=== PATIENT | female | born 1940 | race Caucasian/White ===

== ENCOUNTER 2017-02-22 09:27 | Outpatient (CLI) | payer MEDICARE, OTHER | END 2017-02-22 09:28 | disposition home or self-care (01) | DX: M79.606 Pain in leg, unspecified (principal); E03.9 Hypothyroidism, unspecified; E78.5 Hyperlipidemia, unspecified; M06.9 Rheumatoid arthritis, unspecified ==

== ENCOUNTER 2017-04-12 10:58 | Outpatient (CLI) | payer MEDICARE, OTHER ==
--- NOTE | 2017-04-13 17:07 | Mammography Report ---
DIGITAL SCREENING MAMMOGRAM: 04/12/2017 CLINICAL INDICATION: A 76-year-old with history of benign left breast biopsy, for screening. COMPARISON: 06/2013, 02/2011, 06/2008, 03/2007. TECHNIQUE: Routine CC and MLO projections were obtained of the breasts. FINDINGS: The breasts again demonstrate scattered fibroglandular densities bilaterally. Coarse and p unctate, typically benign calcifications are present. No suspicious masses, clustered microcalcificat ions, or regions of architectural distortion are identified. IMPRESSION: BENIGN FINDINGS. RECOMMENDATION: ROUTINE ANNUAL SCREENING UNLESS OTHERWISE CLINICALLY INDICATED. BIRADS CATEGORY 2-BENIGN FINDINGS. STANDARD QUALIFYING STATEMENTS 1. This examination was reviewed with the aid of Computer-Aided Detection (CAD). 2. A negative or benign imaging report should not delay biopsy if clinically suspicious findings are present. Consider surgical consultation if warranted. More than 5% of cancers are not identified by i maging. 3. Dense breasts may obscure an underlying neoplasm. JOB #: [id number] EXT JOB #:[id number]
== END 2017-04-12 10:59 | disposition home or self-care (01) ==
LOC: DI 10:58
PROVIDERS: ATTEND Internal Medicine
DX: Z12.31 Encounter for screening mammogram for malignant neoplasm of breast (principal)
CPT/HCPCS: 77067

== ENCOUNTER 2017-08-08 10:22 | Outpatient (CLI) | payer MEDICARE, OTHER | END 2017-08-08 10:23 | disposition home or self-care (01) | LOC: RT 10:22 | PROVIDERS: ATTEND Internal Medicine | DX: I63.50 Cerebral infarction due to unspecified occlusion or stenosis of unspecified cerebral artery (principal); I49.9 Cardiac arrhythmia, unspecified | CPT/HCPCS: 93005 ==

== ENCOUNTER 2017-10-10 08:26 | Outpatient (CLI) | payer MEDICARE, OTHER ==
[2017-10-10 09:31] LABS: CHOL/HDL RATIO 2.4 (<4.4); CHOLESTEROL 152 mg/dL; HDL CHOLESTEROL 63 mg/dL; LDL/HDL RATIO 1.3 (<4.4); TRIGLYCERIDES 51 mg/dL; VLDL CHOLESTEROL 10 mg/dL
[2017-10-10 09:56] LABS: HEMOGLOBIN A1C 0.53 g/dL
== END 2017-10-10 08:27 | disposition home or self-care (01) ==
LOC: LAB 08:26
PROVIDERS: ATTEND Psychiatry & Neurology Neurology
DX: Z86.73 Personal history of transient ischemic attack (TIA), and cerebral infarction without residual deficits (principal); Z79.899 Other long term (current) drug therapy
CPT/HCPCS: 36415; 80061; 83036

== ENCOUNTER 2017-10-12 12:26 | Outpatient (CLI) | payer MEDICARE, OTHER ==
[2017-10-12 13:19] LABS: BASOPHILS % (AUTO) 0.7 %; EOSINOPHILS # (AUTO) 0.1 10^3/uL (0.0-0.7); HCT - HEMATOCRIT 40.2 % (37.0-47.0); HGB - HEMOGLOBIN 13.5 g/dL (12.0-16.0); LYMPHOCYTES # (AUTO) 1.6 10^3/uL (1.5-3.5); LYMPHOCYTES % (AUTO) 27.9 %; MEAN CORPUSCULAR HEMOGLOBIN 31.9 pg (27.0-31.0); MEAN CORPUSCULAR HGB CONC 33.5 g/dL (32.0-36.0); MEAN CORPUSCULAR VOLUME 95.3 fL (81.0-99.0); MONOCYTES # (AUTO) 0.5 10^3/uL (0.0-1.0); MONOCYTES % (AUTO) 9.1 %; NEUTROPHILS # (AUTO) 3.5 10^3/uL (1.5-6.6); NEUTROPHILS % (AUTO) 61.3 %; RED BLOOD COUNT 4.22 10^6/uL (4.20-5.40); RED CELL DISTRIBUTION WIDTH 14.4 % (12.0-15.0); UNCORRECTED WHITE BLOOD COUNT 5.6 x10^3/uL; WHITE BLOOD COUNT 5.6 x10^3/uL (4.8-10.8)
[2017-10-12 13:25] LABS: INR 0.9 (0.8-1.2); PT - PROTHROMBIN TIME 10.7 secs (9.9-12.6)
[2017-10-12 13:44] LABS: ALBUMIN/GLOBULIN RATIO 1.5 (1.0-2.2); BILIRUBIN,TOTAL 0.7 mg/dL (0.2-1.0); CALCIUM 9.2 mg/dL (8.5-10.3); CREATININE 0.8 mg/dL (0.4-1.0); POTASSIUM 4.5 mmol/L (3.5-5.0); TOTAL PROTEIN 6.8 g/dL (6.7-8.2)
== END 2017-10-12 12:27 | disposition home or self-care (01) ==
LOC: LAB 12:26
PROVIDERS: ATTEND Internal Medicine Cardiovascular Disease
DX: Z01.810 Encounter for preprocedural cardiovascular examination (principal); Z79.01 Long term (current) use of anticoagulants
CPT/HCPCS: 36415; 80053; 85025; 85610

== ENCOUNTER 2017-12-14 14:05 | Outpatient (CLI) | payer MEDICARE, OTHER ==
[2017-12-14 14:27] LABS: BILIRUBIN,URINE NEGATIVE (NEGATIVE); GLUCOSE, URINE (UA) NEGATIVE (NEGATIVE); KETONES,URINE (UA) NEGATIVE (NEGATIVE); LEUKOCYTE ESTERASE, URINE MODERATE (NEGATIVE); NITRITE,URINE NEGATIVE (NEGATIVE); OCCULT BLOOD,URINE TRACE-INTA (NEGATIVE); PH,URINE 6.5 PH (5.0-7.5); PROTEIN,URINE NEGATIVE (NEGATIVE); UROBILINOGEN,URINE 0.2 (NORMAL) E.U./dL (NORMAL)
[2017-12-14 14:31] LABS: CLARITY,URINE HAZY (CLEAR)
[2017-12-14 14:35] LABS: BACTERIA,URINE Moderate /HPF (None Seen); SQUAMOUS EPITHELIAL CELL,UR NONE SEEN (<= Few)
== END 2017-12-14 14:06 | disposition home or self-care (01) ==
LOC: LAB 14:05
PROVIDERS: ATTEND Orthopaedic Surgery
DX: Z01.818 Encounter for other preprocedural examination (principal); N39.0 Urinary tract infection, site not specified; R73.09 Other abnormal glucose
CPT/HCPCS: 81001; 81003; 87086

== ENCOUNTER 2017-12-25 11:30 | Inpatient (IN) | payer MEDICARE, OTHER ==
[2017-12-25] MEDS ORDERED: LORazepam 2 MG/ML VIAL IVP STA (13:21)
[2017-12-25] MEDS ORDERED: METHYLNALTREXONE 12 MG/0.6 ML VIAL SUBQ ONE (13:21)
[2017-12-25 13:23] LABS: BASOPHILS % (AUTO) 4.4 %; EOSINOPHILS % (AUTO) 1.2 %; HGB - HEMOGLOBIN 13.8 g/dL (12.0-16.0); LYMPHOCYTES % (AUTO) 5.8 %; MEAN CORPUSCULAR HEMOGLOBIN 31.7 pg (27.0-31.0); MEAN CORPUSCULAR HGB CONC 34.8 g/dL (32.0-36.0); MEAN CORPUSCULAR VOLUME 91.2 fL (81.0-99.0); MEAN PLATELET VOLUME 7.9 fL (7.9-10.8); MONOCYTES % (AUTO) 2.9 %; NEUTROPHILS % (AUTO) 85.7 %; PLT - PLATELET COUNT 168 10^3/uL (130-450); RED BLOOD COUNT 4.36 10^6/uL (4.20-5.40); RED CELL DISTRIBUTION WIDTH 13.3 % (12.0-15.0); WHITE BLOOD COUNT 8.7 x10^3/uL (4.8-10.8)
--- NOTE | 2017-12-25 13:24 | ED Physician Documentation ---
PD HPI ABD PAIN - Stated complaint Stated Complaint: ABD PX N/V CONSTIPATION - Chief complaint Chief Complaint: Abd Pain - History obtained from History obtained from: Patient - History of Present Illness Timing - onset: Other (She is on opioids for left hip pain pending a replacement in a little over a week. She really has not had a good BM in 4 days except for a small one last night and feels like she is going to explode with nausea. She has had some rectal bleeding as well.) Review of Systems Ten Systems: 10 systems reviewed and negative Constitutional: denies: Fever, Chills Cardiac: denies: Chest pain / pressure, Palpitations Respiratory: denies: Dyspnea, Cough GI: reports: Abdominal Pain, Nausea, Constipation, Bloody / black stool. denies : Vomiting, Diarrhea PD PAST MEDICAL HISTORY - Past Medical History Cardiovascular: High cholesterol Respiratory: None Neuro: CVA Endocrine/Autoimmune: HyPOthyroidism : None HEENT: Other Musculoskeletal: Osteoarthritis, Chronic back pain Derm: Other - Past Surgical History Past Surgical History: Yes Ortho: Other HEENT: Tonsil/Adenoidectomy Derm: Skin cancer surgery - Present Medications Home Medications: Ambulatory Orders Medication Instructions Recorded Confirmed Clopidogrel [Plavix] 75 mg PO DAILY 04/06/14 12/25/17 Levothyroxine Sodium [Synthroid] 125 mcg PO DAILY 04/06/14 12/25/17 Celecoxib [Celebrex] 200 mg PO DAILY 06/08/16 12/25/17 Amox/Clav 875/125 [Augmentin] 1 each PO Q12H 12/25/17 12/25/17 Bisacodyl [Dulcolax] 10 mg PO DAILY 12/25/17 12/25/17 Hydrocodone/Acetaminophen 1 each PO .FREQ PRN 12/25/17 12/25/17 [Hydrocodone-Acetamin 10-300 mg] Senna [Senokot] 8.6 mg PO ONCE 12/25/17 12/25/17 - Allergies Allergies/Adverse Reactions: Allergies Allergy/AdvReac Type Severity Reaction Status Date / Time meloxicam Allergy Intermediate Hives Verified 12/25/17 11:42 Penicillins Allergy Intermediate Hives Verified 12/25/17 11:42 Sulfa (Sulfonamide Allergy Intermediate Hives Verified 12/25/17 11:42 Antibiotics) - Living Situation Living Situation: reports: With family - Social History Does the pt smoke?: No Smoking Status: Never smoker Does the pt drink ETOH?: Yes Does the pt have substance abuse?: No - Family History Family history: reports: Non contributory - Immunizations Immunizations are current?: No Immunizations: TDAP current <10years - POLST Patient has POLST: No POLST Status: Full Code PD ED PE NORMAL - Vitals Vital signs reviewed: Yes - General General: Alert and oriented X 3, Other (Retching and in pain) - HEENT HEENT: PERRL, EOMI - Neck Neck: Supple, no meningeal sign, No bony TTP - Cardiac Cardiac: RRR, No murmur - Respiratory Respiratory: No respiratory distress, Clear bilaterally - Abdomen Abdomen: Other (Slightly distended but soft with mild diffuse tenderness) - Rectal Rectal: Other (With Chel Byrd RN, present and chaperoning. Maroon liquidy stool, very guaiac positive, no impaction in the vault.) - Back Back: No CVA TTP, No spinal TTP - Derm Derm: Normal color, Warm and dry - Extremities Extremities: No deformity, No tenderness to palpate - Neuro Neuro: Alert and oriented X 3, Normal speech - Psych Psych: Normal mood, Normal affect Results - Vitals Vitals: Vital Signs - 24 hr 12/25/17 12/25/17 12/25/17 11:38 14:37 14:42 Temperature 36.2 C L Heart Rate 67 71 69 Respiratory 16 14 14 Rate Blood Pressure 148/75 H 118/65 O2 Saturation 99 88 L 93 12/25/17 15:24 Temperature Heart Rate 80 Respiratory 16 Rate Blood Pressure 118/65 O2 Saturation 98 Oxygen O2 Source Nasal cannula Oxygen Flow Rate 3 - Labs Labs: Laboratory Tests 12/25/17 12/25/17 13:10 13:10 WBC 8.7 RBC 4.36 Hgb 13.8 Hct 39.8 MCV 91.2 MCH 31.7 H MCHC 34.8 RDW 13.3 Plt Count 168 MPV 7.9 Neut # Not Reportable Lymph # Not Reportable Murray # Not Reportable Eos # Not Reportable Baso # Not Reportable Absolute Nucleated RBC Not Reportable Total Counted 100 Band Neuts % (Manual) 2 Abnorm Lymph % (Manual) 0 Nucleated RBC % Not Reportable Neutrophils # (Manual) 7.6 H Lymphocytes # (Manual) 0.6 L Monocytes # (Manual) 0.4 Eosinophils # (Manual) 0.1 Basophils # (Manual) 0.0 Differential Comment MANUAL DIFFERENTIAL Manual Slide Review Indicated Platelet Estimate NORMAL (130-450,000) Platelet Morphology NORMAL APPEARANCE RBC Morph Micro Appear NORMAL APPEARANCE Sodium 128 L Potassium 3.8 Chloride 93 L Carbon Dioxide 28 Anion Gap 7.0 BUN 17 Creatinine 0.6 Estimated GFR (MDRD) 97 Glucose 98 Calcium 8.8 Total Bilirubin 0.7 AST 30 ALT 23 Alkaline Phosphatase 58 Total Protein 6.5 L Albumin 4.1 Globulin 2.4 Albumin/Globulin Ratio 1.7 Lipase 14 L - Rads (name of study) CT A/P Radiology: EMP read contemporaneously (Pneumoperitoneum, likely diverticulitis as a source, small free fluid, increased stool, liver lesions.) PD MEDICAL DECISION MAKING - ED course ED course: 77yo 77-year-old woman presents with severe abdominal pain and complaint of constipation impaction, although she is moderately tender on examination and no impaction is found and she does have guaiac positive stools suggesting against a simple diagnosis of constipation/impaction and therefore CT was done showing perforation and Dr. Oropeza, the on-call surgeon was consulted at 3:50 PM and will take the patient to the operating room. Departure - Departure Disposition: ED Transfer to [facility] Clinical Impression: Pneumoperitoneum Condition: Serious
[2017-12-25 13:36] LABS: ALBUMIN 4.1 g/dL (3.2-5.5); ALBUMIN/GLOBULIN RATIO 1.7 (1.0-2.2); BILIRUBIN,TOTAL 0.7 mg/dL (0.2-1.0); CALCIUM 8.8 mg/dL (8.5-10.3); CREATININE 0.6 mg/dL (0.4-1.0); TOTAL PROTEIN 6.5 g/dL (6.7-8.2)
[2017-12-25 13:47] LABS: ABNORMAL LYMPHS % (MANUAL) 0 %
[2017-12-25 13:48] LABS: BAND NEUTROPHILS % (MANUAL) 2 %; DIFFERENTIAL COMMENT MANUAL DIFFERENTIAL; EOSINOPHILS # (MANUAL) 0.1 10^3/uL (0-0.7); LYMPHOCYTES # (MANUAL) 0.6 10^3/uL (1.5-3.5); LYMPHOCYTES % (MANUAL) 7 %; MONOCYTES # (MANUAL) 0.4 10^3/uL (0.0-1.0); NEUTROPHILS # (MANUAL) 7.6 10^3/uL (1.5-6.6); NEUTROPHILS % (MANUAL) 85 %; PLATELET ESTIMATE, MANUAL NORMAL (130-450,000) (NORMAL); PLATELET MORPHOLOGY NORMAL APPEARANCE (NORMAL); RBC MORPHOLOGY (MULTIPLE) NORMAL APPEARANCE (NORMAL)
[2017-12-25] MEDS ORDERED: IOPAMIDOL-300 100 ML VIAL ONE (13:59)
[2017-12-25] MEDS ORDERED: HYDROmorphone 1 MG/ML SYRINGE IVP STA ×3 (14:30→17:33)
[2017-12-25] MEDS ORDERED: ONDANSETRON 4 MG/2 ML VIAL IVP STA ×3 (14:30→16:29)
[2017-12-25] MEDS ORDERED: IOPAMIDOL-300 100 ML VIAL IVP ONE (15:08)
--- NOTE | 2017-12-25 15:36 | CT Report ---
EXAM: CT ABDOMEN AND PELVIS EXAM DATE: 12/25/2017 03:02 PM. CLINICAL HISTORY: IV only, low abd pain, melena. COMPARISONS: None. TECHNIQUE: Routine helical CT imaging was performed through the abdomen and pelvis. IV contrast: 100 ML ISOVUE 300. Enteric contrast: No. Reconstructions: Coronal and sagittal. In accordance with CT protocol optimization, one or more of the following dose reduction techniques w ere utilized for this exam: automated exposure control, adjustment of mA and/or KV based on patient s ize, or use of iterative reconstructive technique. FINDINGS: Lung Bases: There is bibasilar dependent atelectasis. Liver: There are multiple low-density liver lesions which are too small to characterize. Segment 8 le arnel image 15 measures 0.9 cm. Segment 2 lesion image 17 measures 0.9 cm. Segment 5 lesion image 29 m easures 1.3 cm. Liver vessels are patent. Gallbladder/Bile Ducts: Unremarkable. Spleen: Normal. Pancreas: Normal. Adrenal Glands: Normal. Kidneys: Normal. No masses or hydronephrosis. Peritoneal Cavity/Bowel: There is a small amount of pneumoperitoneum within the anterior upper abdome n. There is increased stool within the colon. There is a small amount of pneumoperitoneum in the lowe r abdomen around the rectosigmoid junction. There is a small volume of free fluid in the low pelvis. There are mild to moderate number of diverticula. The small bowel is normal in caliber. No organized drainable abscess or peripherally enhancing fluid collection. There is generalized increased density of mesenteric fat in the lower abdomen. Pelvic Organs: Uterus is anteverted. Urinary bladder appears unremarkable. Vasculature: No abdominal aortic aneurysm. Bones: There is advanced left hip degenerative disease. Bone density of the sacrum and lumbar spine a ppears heterogeneous. Other: None. IMPRESSION: 1. Pneumoperitoneum consistent with perforated viscus. Most likely representing perforated diverticul itis of the sigmoid colon or rectum. 2. Small free fluid in the pelvis without an organized abscess. 3. Increased colonic stool. 4. 3 indeterminant density liver lesions of uncertain etiology and clinical significance. Differentia l diagnosis would include hemangiomas, cysts, liver metastases. RADIA The above findings were discussed with Pending As Of Now by Dr. Jon Ruffin at 15:35 hrs o n 12/25/17. Referring Provider Line: [phone] SITE ID: [id number]
[2017-12-25] MEDS ORDERED: cefTRIAXone 1 GM in SODIUM CHLORIDE 0.9% MINIBAG 100 ML IV STA (15:55)
[2017-12-25] MEDS ORDERED: metroNIDAZOLE 500 MG/100 ML 500 MG/100 ML BAG IV ONE (15:56)
[2017-12-25] MEDS ORDERED: metroNIDAZOLE 500 MG/100 ML 500 MG/100 ML BAG ONE (16:30)
--- NOTE | 2017-12-25 17:40 | CONSULTATION NOTE ---
Referring Provider Name of Referring Provider:: Buck Contrerasra Consult Date: 12/25/17 Chief Complaint - Chief Complaint Chief Complaint: Free air with a history of profound constipation/diverticulosis History of Present Illness - Admitted From Admitted From:: ED - History Obtained From Records Reviewed: Yes History obtained from: Patient and family Exam Limitations: Pain in left hip and need to urinate - History of Present Illness HPI Comment/Other: Dr. 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 She has had a long-standing history of constipation and this was simply worsened by the taking of opiates for her left hip pain. Her last bowel movement was 4 days ago with only a small semblance of a bowel movement last night accompanied by quite a bit of blood. With this attempt she started having abdominal pain which was generalized but lower abdominal in nature. It was unremitting and associated with profound nausea and this prompted her to come to our emergency department. There is been no vomiting. She she has diverticulosis and states that her family has had diverticulosis. Dr. Saavedra obtain a CAT scan to workup her abdominal pain and this showed free air. Importantly, the patient had been placed on antibiotics about 3 days ago for urinary tract infection. History - Past Medical History Cardiovascular: reports: High cholesterol Respiratory: reports: None Neuro: reports: CVA Endocrine/Autoimmune: reports: HyPOthyroidism : reports: None HEENT: reports: Other Musculoskeletal: reports: Osteoarthritis, Chronic back pain Derm: reports: Other MRSA Hx?: No - Past Surgical History Ortho: reports: Other HEENT: reports: Tonsil/Adenoidectomy Derm: reports: Skin cancer surgery - Family & Social History Living Situation: With family - POLST Patient has POLST: No POLST Status: Full Code Meds/Allgy - Home Medications Home Medications: Ambulatory Orders Medication Instructions Recorded Confirmed Clopidogrel [Plavix] 75 mg PO DAILY 04/06/14 12/25/17 Levothyroxine Sodium [Synthroid] 125 mcg PO DAILY 04/06/14 12/25/17 Celecoxib [Celebrex] 200 mg PO DAILY 06/08/16 12/25/17 Amox/Clav 875/125 [Augmentin] 1 each PO Q12H 12/25/17 12/25/17 Bisacodyl [Dulcolax] 10 mg PO DAILY 12/25/17 12/25/17 Hydrocodone/Acetaminophen 1 each PO .FREQ PRN 12/25/17 12/25/17 [Hydrocodone-Acetamin 10-300 mg] Senna [Senokot] 8.6 mg PO ONCE 12/25/17 12/25/17 - Allergies Allergies/Adverse Reactions: Allergies Allergy/AdvReac Type Severity Reaction Status Date / Time meloxicam Allergy Intermediate Hives Verified 12/25/17 11:42 Penicillins Allergy Intermediate Hives Verified 12/25/17 11:42 Sulfa (Sulfonamide Allergy Intermediate Hives Verified 12/25/17 11:42 Antibiotics) Review of Systems - Cardiovascular Cariovascular: denies: Irregular heart rate, Palpitations, Chest pain - Respiratory Respiratory: denies: Cough, Sputum production, Hemoptysis - Gastrointestinal Gastrointestinal: reports: Abdominal pain, Constipation, Rectal bleeding, Nausea. denies: Vomiting - Genitourinary Genitourinary: reports: Dysuria, Urgency - Musculoskeletal Musculoskeletal: reports: Joint pain (Left hip pain, profound.) - Neurological Neurological: denies: General weakness, Focal weakness - Psychiatric Psychiatric: denies: Depression, Anxiety - Hematologic/Lymphatic Hematologic/Lymphatic: reports: Bleeding tendencies (On Plavix.) Exam - Vital Signs Reviewed Vital Signs: Yes Vital Signs: Vital Signs x48h Temp Pulse Resp BP Pulse Ox 12/25/17 15:24 80 16 118/65 98 12/25/17 14:42 69 14 93 12/25/17 14:37 71 14 118/65 88 L 12/25/17 11:38 36.2 C L 67 16 148/75 H 99 - Physical Exam General Appearance: positive: Moderate distress, Severe distress Eyes Bilateral: positive: No lid inflammation, Conjunctivae nml, No scleral icterus Neck: positive: Trachea midline Respiratory: positive: Chest non-tender, No respiratory distress, Breath sounds nml Cardiovascular: positive: Regular rate & rhythm Abdomen: positive: Tenderness (Peritoneal findings especially in the lower abdomen. Extreme pain on palpation.), Abnml bowel sounds (Markedly decreased bowel sounds.) Rectal: positive: Other (Not repeated, Dr. Saavedra's examination was grossly positive.) Skin: positive: Color nml Extremities: positive: Non-tender, Nml appearance Neurologic/Psychiatric: positive: Oriented x3 Conclusion/Plan - Diagnosis Diagnosis: Free air due to perforated viscus, likely diverticular - Plan Plan: Urgent operation. Exploratory laparotomy. Likely partial colectomy (sigmoid) with end colostomy and Lovett's procedure. The indications, procedure, alternatives, and possible complications including bleeding (requiring transfusion with all of its risks), infection (approximately 33% of all types), and were fully explained to the patient and her as well as the family and all questions answered. Verbal and written consent obtained. Teds and Venodyne's will be placed for prophylaxis against deep venous thrombosis. The patient is already on Plavix. The patient will receive preoperative antibiotics for prophylaxis and surgical infection. The patient will be in the hospital for definitely more than 96 hours due to this likely diagnosis and the operation required. [employer] disclaimer: This document was created in part using voice recognition technology. Because of the inherent limitations of the system ([employer]'s [employer] Dictate user manual states that the licensee understands that speech recognition is a statistical process and that recognition errors are inherent in the process), occasional same sounding word substitutions and grammatical errors do occur and persist despite proofreading. Please read this document for context. - Lab Results Lab results reviewed: Yes Abdullahi Bones: 12/25/17 13:10 12/25/17 13:10 - Diagnostic Imaging Results Diagnostic Imaging Results: positive: Prelim report reviewed, Final report reviewed, Discussed with radiologist, Read independently
[2017-12-25] MEDS ORDERED: NEOSTIGMINE 1 MG/1 ML 10 ML MDV IVP ONE (20:00)
[2017-12-25] MEDS ORDERED: ROCURONIUM 50 MG/5 ML VIAL IVP ONE (20:00)
[2017-12-25] MEDS ORDERED: fentaNYL 100 MCG/2 ML VIAL IVP ONE (20:00)
[2017-12-25] MEDS ORDERED: LIDOCAINE-MPF 2% 5 ML VIAL IM ONE (20:00)
[2017-12-25] MEDS ORDERED: SUCCINYLCHOLINE 200 MG/10 ML VIAL IVP ONE (20:00)
[2017-12-25] MEDS ORDERED: ACETAMINOPHEN 1,000 MG/100 ML 100 ML IV ONE (20:00)
[2017-12-25] MEDS ORDERED: PROPOFOL 200 MG/20 ML VIAL IVP ONE (20:00)
[2017-12-25] MEDS ORDERED: GLYCOPYRROLATE 1 MG/5 ML VIAL IVP ONE (20:00)
[2017-12-25] MEDS ORDERED: LACTATED RINGERS 1,000 ML IV ONE (20:09)
[2017-12-25] MEDS ORDERED: SODIUM CHLORIDE 0.9% 1,000 ML IV ONE ×3 (20:59→22:15)
[2017-12-25] MEDS ORDERED: MORPHINE PCA 50 MG IV PRN (22:05)
[2017-12-25] MEDS: HYDROmorphone 1 MG/ML SYRINGE ONE ×2 (22:09→22:20)
--- NOTE | 2017-12-25 22:11 | OPERATIVE REPORT ---
Operative Report - General Procedure Date: 12/25/17 Planned Procedure: Exploratory laparotomy, possible colectomy/colostomy Pre-Op Diagnosis: Perforated viscus resulting in free air Procedure Performed: Sigmoidectomy with end colostomy and Lovett's Abdominal washout and placement of a 19 Spanish Popeye drain Post Op Diagnosis: Stercoral perforation of the sigmoid colon - Procedure Note Primary Surgeon: Rudy Oropeza MD Anesthesia Provider: Deja Godinez CRNA Anesthesia Technique: General ET tube IV Fluids (mL): 1,800 Estimated Blood Loss (mL): 300 Urine Output (mL): 300 Drain/Tube Type: Popeye drain (19 Spanish placed in the right lower quadrant and directed down into the pelvis) Complications: None. - Other Other Information/Narrative: OPERATIVE DESCRIPTION/REPORT: After verbal and written informed consent was obtained detailing the risks of infection, bleeding requiring transfusion with its risks, nerve injury, and , and after I met with the patient confirming the surgery and the site of the surgery, the patient was brought to the operative suite and placed supine on the operating table. Great care was taken to avoid pressure points to prevent pressure necrosis or nerve injury. Monitoring devices were applied along with TEDs and pneumatic compressive stockings (to prevent DVT). The patient received preoperative antibiotics for surgical prophylaxis. Deja Godinez CRNA sedated and anethetized the patient for the entire procedure. The patient was prepped and draped in the usual sterile manner. With the patient draped my initials were clearly visible. A "time in" then confirmed that the paitient was identified with 3 identifiers (name, birthdate and medical record number), the history and physical was in the chart, the signed consent confirming the procedure was in the chart, the patient was in the correct position, the aforementioned prophylactic measures were in place or given, we had the correct personel and equipment to complete the procedure and that anesthesia, surgery and nursing were given an opportunuty to express any concerns. With the agreement of everyone in the room, we proceeded with the operation. A midline incision was made infraumbilically and taken down to the fascia. The incision extended from 3 cm below the umbilicus to 3 cm above above the pubic tubercle. Once this was taken down to the fascia, the fascia and peritoneum were opened without incident or difficulty. The sigmoid colon was markedly redundant. The sigmoid colon was examined a 5 cm in diameter hole was identified within the sigmoid in the pelvis. The entire colon was filled with unbelievably hard stool. One large turd was plugging the hole with two turds having fallen out of the colon and resting deep in the pelvis. The mid-sigmoid colon was selected as the proximal point of resection and a TRIPP stapler was used to transect the colon at this point. The mesentery was then taken sequentially using a Ligasure device. The dissection continued down to just above the peritoneal reflection. The posterior dissection was done using Ligasure whereas the peritoneal attachments both anteriorly and laterally were taken using Bovie electrocautery. An Ethi[employer] Contour stapler was obtained and placed across the distal sigmoid colon and fired. The specimen was delivered from the operative field. The abdomen was copiously irrigated with warm saline. The proximal sigmoid colon and descending colon were freed from the lateral sidewall via dissection along the white line of Toldt with Bovie electrocautery. Again the colon itself is markedly redundant and filled with extraordinarily hard stool. A colostomy site was chosen mcfp between the incision and the anterior iliac spine and a circular incision was made in the skin using a scalpel. The subcutaneous tissues were dissected off the anterior fascia using Bovie electrocautery. The anterior fascia was opened in a cruciate manner and the posterior fascia was opened in a linear fashion again using Bovie electrocautery using my hand to protect the bowel underneath. This opening was then dilated to admit 2 fingers easily. The colon was grasped with a Vaughn through this opening and brought up through the opening. Please note that the stool was so hard and so large that it was difficult to bring the stool up through the fascial opening. A 19 Spanish Popeye drain was obtained and inserted into the right lower quadrant using a separate stab incision. This is a cured to the skin using a 3-0 nylon which was Julián sandaled about the drain. The drain was then placed into the pelvis where the turds had been lying and along the left pelvic sidewall. The fascia was closed using a 0 looped PDS in a running fashion. The fascial closure was started superiorly and run inferiorly. The subcutaneous tissues were copiously irrigated using warm sterile saline and meticulous hemostasis was obtained using Bovie electrocautery. The skin was approximated in 5 spots using 3-0 Nylon mattress sutures . The ostomy was then matured after excising the staple line using the LigaSure. 3-0 Vicryl sutures were used to mature the ostomy. The midline wound was then packed using quarter inch Iodofor gauze. An ostomy appliance was placed over the colostomy. At this point a time out was performed that confirmed that all the counts were correct, the procedure that was performed, the blood loss, the IV fluids administered, and the patients condition. Having tolerated the procedure well , the patient was subsequently taken to recovery room in good and stable condition. I then spoke with the patient's regarding the operation and the findings. [employer] disclaimer: This document was created in part using voice recognition technology. Because of the inherent limitations of the system ([email or web address]'s [employer] Dictate user manual states that the licensee understands that speech recognition is a statistical process and that recognition errors are inherent in the process), occasional same sounding word substitutions and grammatical errors do occur and persist despite proofreading. Please read this document for context.
[2017-12-25] MEDS ORDERED: ONDANSETRON 4 MG/2 ML VIAL ONE (22:22)
[2017-12-25] MEDS ORDERED: CEFEPIME 1 GM in SODIUM CHLORIDE 0.9% MINIBAG 100 ML IV SCH (23:00)
[2017-12-25] MEDS: ACETAMINOPHEN 1,000 MG/100 ML 100 ML IV SCH (23:45)
[2017-12-25] MEDS: SODIUM CHLORIDE FLUSH 0.9% 10 ML SYRINGE IVP SCH (23:58)
[2017-12-26] MEDS: D5NS W/20 MEQ KCL 1,000 ML IV SCH ×3 (00:11→22:03)
[2017-12-26] MEDS ORDERED: MORPHINE 10 MG/ML VIAL IVP PRN (00:22)
[2017-12-26 00:30] LABS: BILIRUBIN,URINE NEGATIVE (NEGATIVE); GLUCOSE, URINE (UA) NEGATIVE (NEGATIVE); KETONES,URINE (UA) >=80 mg/dL (NEGATIVE); LEUKOCYTE ESTERASE, URINE NEGATIVE (NEGATIVE); NITRITE,URINE NEGATIVE (NEGATIVE); OCCULT BLOOD,URINE SMALL (NEGATIVE); PH,URINE 5.5 PH (5.0-7.5); PROTEIN,URINE NEGATIVE (NEGATIVE); UROBILINOGEN,URINE 0.2 (NORMAL) E.U./dL (NORMAL)
[2017-12-26] MEDS ORDERED: CEFEPIME 1 GM in SODIUM CHLORIDE 0.9% MINIBAG 100 ML IV SCH (00:30)
[2017-12-26 00:32] LABS: CLARITY,URINE CLEAR (CLEAR)
[2017-12-26 00:35] LABS: BACTERIA,URINE Rare /HPF (None Seen); SQUAMOUS EPITHELIAL CELL,UR RARE Squamous (<= Few)
[2017-12-26] MEDS ORDERED: metroNIDAZOLE 500 MG/100 ML 250 MG/50 ML BAG IV SCH (01:00)
[2017-12-26] MEDS: MORPHINE 2 MG/ML CARPUJECT ONE ×2 (01:42→08:29)
[2017-12-26] MEDS ORDERED: MORPHINE 2 MG/ML CARPUJECT ONE ×3 (03:54→08:31)
[2017-12-26 05:05] LABS: BASOPHILS % (AUTO) 0.3 %; HGB - HEMOGLOBIN 12.4 g/dL (12.0-16.0); LYMPHOCYTES # (AUTO) 0.3 10^3/uL (1.5-3.5); LYMPHOCYTES % (AUTO) 5.3 %; MEAN CORPUSCULAR HEMOGLOBIN 32.1 pg (27.0-31.0); MEAN CORPUSCULAR HGB CONC 31.9 g/dL (32.0-36.0); MEAN CORPUSCULAR VOLUME 100.6 fL (81.0-99.0); MEAN PLATELET VOLUME 8.7 fL (7.9-10.8); MONOCYTES # (AUTO) 0.4 10^3/uL (0.0-1.0); MONOCYTES % (AUTO) 6.3 %; NEUTROPHILS # (AUTO) 5.6 10^3/uL (1.5-6.6); NEUTROPHILS % (AUTO) 88.1 %; PLT - PLATELET COUNT 142 10^3/uL (130-450); RED BLOOD COUNT 3.87 10^6/uL (4.20-5.40); RED CELL DISTRIBUTION WIDTH 13.8 % (12.0-15.0); WHITE BLOOD COUNT 6.3 x10^3/uL (4.8-10.8)
[2017-12-26 05:21] LABS: ALBUMIN 2.8 g/dL (3.2-5.5); ALBUMIN/GLOBULIN RATIO 1.3 (1.0-2.2); BILIRUBIN,TOTAL 0.9 mg/dL (0.2-1.0); CALCIUM 7.5 mg/dL (8.5-10.3); CREATININE 0.5 mg/dL (0.4-1.0); TOTAL PROTEIN 4.9 g/dL (6.7-8.2)
[2017-12-26] MEDS: ACETAMINOPHEN 1,000 MG/100 ML 100 ML IV SCH ×4 (05:26→22:26)
[2017-12-26] MEDS: SODIUM CHLORIDE FLUSH 0.9% 10 ML SYRINGE IVP SCH ×5 (05:30→22:23)
[2017-12-26] MEDS: LEVOTHYROXINE 125 MCG TABLET PO SCH (06:58)
--- NOTE | 2017-12-26 07:52 | PROVIDER PROGRESS NOTE ---
Subjective - General Admit Date: 12/25/17 Procedure Date: 12/25/17 Post Op Days: 1 Procedure Performed: Sigmoidectomy, end colostomy, Hartmans, abdominal washout, 19 Fr drain - Review of Systems Wound/Incisions: positive: Dressing dry and intact (Already changed once today.) Drain Type: 19 Fr Popeye Drain Output Description: Serosanguinous Approximate mls Output: 95 General: positive: Other (Hip pain.) HEENT: positive: No symptoms, Other (Dry mouth.) Pulmonary: positive: No symptoms Cardiovascular: positive: No symptoms Gastrointestinal: positive: Nausea (Occasional.) Genitourinary: positive: Urgency (Yousif in place.) Musculoskeletal: positive: Other (Hip pain.) Psychiatric: positive: No symptoms Objective - Patient Data Reviewed Vital Signs: Yes Vital Signs: Vital Signs x48h Temp Pulse Resp BP Pulse Ox 12/26/17 06:00 37.0 C 67 14 88/46 L 94 12/26/17 03:54 37.0 C 69 16 106/52 L 98 12/26/17 02:01 36.8 C 70 16 96/46 L 97 12/26/17 00:59 36.7 C 73 18 96/53 L 97 12/26/17 00:10 36.7 C 72 18 106/48 L 98 Weight: Weight 12/24/17 12/25/17 12/26/17 23:59 23:59 23:59 Weight (kg) 67 kg Intake & Output: Intake and Output Totals x24h 12/24/17 12/25/17 12/26/17 23:59 23:59 23:59 Intake Total 931.667 Output Total 595 Balance 336.667 - Lab Results Lab Results: 12/26/17 04:18 12/26/17 04:18 Other Lab Results: Lab Results x24hrs 12/26/17 12/26/17 12/26/17 Range/Units 04:18 04:18 00:05 WBC 6.3 (4.8-10.8) x10^3/uL RBC 3.87 L (4.20-5.40) 10^6/uL Hgb 12.4 (12.0-16.0) g/dL Hct 38.9 (37.0-47.0) % MCV 100.6 H (81.0-99.0) fL MCH 32.1 H (27.0-31.0) pg MCHC 31.9 L (32.0-36.0) g/dL RDW 13.8 (12.0-15.0) % Plt Count 142 (130-450) 10^3/uL MPV 8.7 (7.9-10.8) fL Neut # 5.6 (1.5-6.6) 10^3/uL Lymph # 0.3 L (1.5-3.5) 10^3/uL [place] # 0.4 (0.0-1.0) 10^3/uL Eos # 0.0 (0.0-0.7) 10^3/uL Baso # 0.0 (0.0-0.1) 10^3/uL Absolute Nucleated RBC 0.00 x10^3/uL Nucleated RBC % 0.0 /100WBC Sodium 132 L (135-145) mmol/L Potassium 3.9 (3.5-5.0) mmol/L Chloride 102 (101-111) mmol/L Carbon Dioxide 22 (21-32) mmol/L Anion Gap 8.0 (6-13) BUN 12 (6-20) mg/dL Creatinine 0.5 (0.4-1.0) mg/dL Estimated GFR (MDRD) 120 (>89) Glucose 135 H (70-100) mg/dL Calcium 7.5 L (8.5-10.3) mg/dL Total Bilirubin 0.9 (0.2-1.0) mg/dL AST 24 (10-42) IU/L ALT 19 (10-60) IU/L Alkaline Phosphatase 39 L (42-121) IU/L Total Protein 4.9 L (6.7-8.2) g/dL Albumin 2.8 L (3.2-5.5) g/dL Globulin 2.1 (2.1-4.2) g/dL Albumin/Globulin Ratio 1.3 (1.0-2.2) Urine Color YELLOW Urine Clarity CLEAR (CLEAR) Urine pH 5.5 (5.0-7.5) PH Ur Specific Start 1.025 (1.002-1.030) Urine Protein NEGATIVE (NEGATIVE) mg/dL Urine Glucose (UA) NEGATIVE (NEGATIVE) mg/dL Urine Ketones >=80 H (NEGATIVE) mg/dL Urine Occult Blood SMALL H (NEGATIVE) Urine Nitrite NEGATIVE (NEGATIVE) Urine Bilirubin NEGATIVE (NEGATIVE) Urine Urobilinogen 0.2 (NORMAL) (NORMAL) E.U./dL Ur Leukocyte Esterase NEGATIVE (NEGATIVE) Urine RBC 6-10 H (0-5) /HPF Urine WBC 4-5 (0-5) /HPF Ur Squamous Epith Cells RARE Squamous (<= Few) Urine Bacteria Rare (None Seen) /HPF Ur Microscopic Review INDICATED Urine Culture Comments NOT INDICATED - Current Medications Current Medications: Current Medications Generic Name Dose Route Start Last Admin Trade Name Freq PRN Reason Stop Dose Admin Potassium Chloride/Dextrose/Sod Cl 1,000 mls @ 100 mls/hr 12/25/17 22:00 06:00 IV 100 mls/hr .Q10H ELIZA Infusion Acetaminophen 100 mls @ 400 mls/hr 12/25/17 23:00 12/26/17 05:41 Ofirmev IV 12/29/17 23:59 Infused Q6H ELIZA Infusion Levothyroxine Sodium 125 mcg 12/26/17 07:00 12/26/17 06:58 Synthroid PO 125 mcg QDAC ELIZA Administration Morphine Sulfate 2 mg 12/26/17 00:22 12/26/17 00:41 Morphine IVP 12/28/17 23:59 2 mg Q30M PRN Administration Abdominal Pain Sodium Chloride 10 ml 12/25/17 22:00 12/26/17 05:30 Normal Saline Flush 0.9% IVP 10 ml Q8HR ELIZA Administration - Physical Exam Wound/Incisions: positive: Dressing dry and intact General Appearance: positive: No acute distress Eyes Bilateral: positive: No lid inflammation, Conjunctivae nml, No scleral icterus ENT: positive: Dry mucous membranes Neck: positive: Trachea midline Respiratory: positive: Chest non-tender, No respiratory distress, Breath sounds nml Cardiovascular: positive: Regular rate & rhythm Abdomen: positive: Other (Quiet. Incisional tenderness. Drain in place in RLQ. ) Skin: positive: Pallor (Slight.) Extremities: positive: Non-tender, Full ROM, Nml appearance Neurologic/Psychiatric: positive: Oriented x3 Impression/Plan - Problem List Problem List: D1 s/p sigmoidectomy for stercoral perforation, end colostomy, Hartmans, abdominal washout, 19 Fr Popeye drain 1) FEN Continue IVF. Try some clear liquids slowly more for comfort. No NG. Await bowel function in ostomy. 2) DVT prophylaxis Continue TEDs and venadynes. Up in chair TID and up with walker. 3) Pathology Pending. 4) Pain Will order chronic pain consult to evaluate and treat hip pain as it is very unlikely that it will be operated on for 6 or more months. 5) Activity Up in chair TID and up with walker. Get PT and OT involved. 9) Yousif Not removed yet. Will be removed today.
[2017-12-26] MEDS: ONDANSETRON 4 MG/2 ML VIAL IVP PRN ×2 (08:28→15:20)
[2017-12-26] MEDS ORDERED: metroNIDAZOLE 500 MG/100 ML 500 MG/100 ML BAG IV SCH (10:00)
[2017-12-26] MEDS: MORPHINE 2 MG/ML CARPUJECT IVP PRN ×3 (10:52→14:58)
[2017-12-26] MEDS: CELECOXIB 100 MG CAPSULE PO SCH (11:17)
[2017-12-26] MEDS: metroNIDAZOLE 500 MG/100 ML 500 MG/100 ML BAG IV SCH ×2 (11:17→18:37)
[2017-12-26] MEDS: SODIUM CHLORIDE FLUSH 0.9% 10 ML SYRINGE IVP PRN (14:59)
[2017-12-26] MEDS: CEFEPIME 1 GM in SODIUM CHLORIDE 0.9% MINIBAG 100 ML IV SCH (15:09)
[2017-12-26] MEDS ORDERED: HYDROmorphone PCA 10 MG IV PRN (16:54)
[2017-12-26] MEDS: PROCHLORPERAZINE 10 MG/2 ML VIAL IVP PRN (19:01)
[2017-12-26] MEDS ORDERED: CEFEPIME 2 GM in SODIUM CHLORIDE 0.9% MINIBAG 100 ML IV SCH (23:00)
[2017-12-27] MEDS: CEFEPIME 1 GM in SODIUM CHLORIDE 0.9% MINIBAG 100 ML IV SCH ×2 (01:24→13:25)
[2017-12-27] MEDS: metroNIDAZOLE 500 MG/100 ML 500 MG/100 ML BAG IV SCH ×3 (02:01→18:25)
[2017-12-27] MEDS: D5NS W/20 MEQ KCL 1,000 ML IV SCH (04:07)
[2017-12-27] MEDS: ACETAMINOPHEN 1,000 MG/100 ML 100 ML IV SCH ×4 (05:01→22:39)
[2017-12-27] MEDS: SODIUM CHLORIDE FLUSH 0.9% 10 ML SYRINGE IVP SCH ×3 (05:02→20:03)
[2017-12-27 05:38] LABS: BASOPHILS % (AUTO) 0.3 %; EOSINOPHILS % (AUTO) 0.7 %; HGB - HEMOGLOBIN 9.9 g/dL (12.0-16.0); LYMPHOCYTES # (AUTO) 0.6 10^3/uL (1.5-3.5); LYMPHOCYTES % (AUTO) 10.3 %; MEAN CORPUSCULAR HEMOGLOBIN 31.5 pg (27.0-31.0); MEAN CORPUSCULAR HGB CONC 32.9 g/dL (32.0-36.0); MEAN CORPUSCULAR VOLUME 95.8 fL (81.0-99.0); MEAN PLATELET VOLUME 8.1 fL (7.9-10.8); MONOCYTES # (AUTO) 0.3 10^3/uL (0.0-1.0); NEUTROPHILS # (AUTO) 4.6 10^3/uL (1.5-6.6); NEUTROPHILS % (AUTO) 83.7 %; PLT - PLATELET COUNT 130 10^3/uL (130-450); RED BLOOD COUNT 3.15 10^6/uL (4.20-5.40); RED CELL DISTRIBUTION WIDTH 13.4 % (12.0-15.0); WHITE BLOOD COUNT 5.5 x10^3/uL (4.8-10.8)
[2017-12-27 05:49] LABS: ALBUMIN 2.3 g/dL (3.2-5.5); BILIRUBIN,TOTAL 0.3 mg/dL (0.2-1.0); CALCIUM 7.6 mg/dL (8.5-10.3); CREATININE 0.5 mg/dL (0.4-1.0); TOTAL PROTEIN 4.6 g/dL (6.7-8.2)
[2017-12-27] MEDS: LEVOTHYROXINE 125 MCG TABLET PO SCH (06:45)
[2017-12-27 06:53] LABS: HGB - HEMOGLOBIN 9.9 g/dL (12.0-16.0)
[2017-12-27] MEDS: POTASSIUM CHLORIDE INJ 20 MEQ in DEXTROSE 5%-0.9% NACL 1,000 ML IV SCH ×2 (10:08→18:26)
[2017-12-27] MEDS: CELECOXIB 100 MG CAPSULE PO SCH (10:08)
[2017-12-27] MEDS: ONDANSETRON 4 MG/2 ML VIAL IVP PRN ×2 (10:09→18:32)
[2017-12-27] MEDS: PROCHLORPERAZINE 10 MG/2 ML VIAL IVP PRN (11:06)
--- NOTE | 2017-12-27 12:30 | PROVIDER PROGRESS NOTE ---
Subjective - General Admit Date: 12/25/17 Procedure Date: 12/25/17 Post Op Days: 2 Procedure Performed: Sigmoidectomy, end colostomy, Hartmans, abdominal washout, 19 Fr drain - Review of Systems Wound/Incisions: positive: Dressing dry and intact Drain Type: 19 Fr Popeye Drain Output Description: Serosanguinous Approximate mls Output: 185 General: positive: Other (Hip pain.) HEENT: positive: No symptoms, Other (Dry mouth.) Pulmonary: positive: No symptoms Cardiovascular: positive: No symptoms Gastrointestinal: positive: Nausea (Occasional.), Abdominal pain (Incisional but better than yesterday.). negative: Vomiting Genitourinary: positive: Other (Required Yousif to be replaced.) Musculoskeletal: positive: Other (Hip pain.) Psychiatric: positive: No symptoms Objective - Patient Data Reviewed Vital Signs: Yes Vital Signs: Vital Signs x48h Temp Pulse Resp BP Pulse Ox 12/27/17 09:58 36.4 C L 74 20 107/63 93 12/27/17 08:48 36.6 C 74 18 98/48 L 93 12/27/17 07:24 22 12/27/17 06:00 14 12/27/17 05:00 36.3 C L 71 14 98/53 L 96 Weight: Weight 12/25/17 12/26/17 12/27/17 23:59 23:59 23:59 Weight (kg) 67 kg Intake & Output: Intake and Output Totals x24h 12/25/17 12/26/17 12/27/17 23:59 23:59 23:59 Intake Total 2950.000 310 Output Total 1360 445 Balance 1590.000 -135 - Lab Results Lab Results: 12/27/17 06:44 12/27/17 05:00 Other Lab Results: Lab Results x24hrs 12/27/17 12/27/17 12/27/17 Range/Units 06:44 05:00 05:00 WBC 5.5 (4.8-10.8) x10^3/uL RBC 3.15 L (4.20-5.40) 10^6/uL Hgb 9.9 L 9.9 L (12.0-16.0) g/dL Hct 30.0 L 30.2 L (37.0-47.0) % MCV 95.8 (81.0-99.0) fL MCH 31.5 H (27.0-31.0) pg MCHC 32.9 (32.0-36.0) g/dL RDW 13.4 (12.0-15.0) % Plt Count 130 (130-450) 10^3/uL MPV 8.1 (7.9-10.8) fL Neut # 4.6 (1.5-6.6) 10^3/uL Lymph # 0.6 L (1.5-3.5) 10^3/uL [place] # 0.3 (0.0-1.0) 10^3/uL Eos # 0.0 (0.0-0.7) 10^3/uL Baso # 0.0 (0.0-0.1) 10^3/uL Absolute Nucleated RBC 0.00 x10^3/uL Nucleated RBC % 0.0 /100WBC Sodium 135 (135-145) mmol/L Potassium 3.8 (3.5-5.0) mmol/L Chloride 107 (101-111) mmol/L Carbon Dioxide 21 (21-32) mmol/L Anion Gap 7.0 (6-13) BUN 11 (6-20) mg/dL Creatinine 0.5 (0.4-1.0) mg/dL Estimated GFR (MDRD) 120 (>89) Glucose 119 H (70-100) mg/dL Calcium 7.6 L (8.5-10.3) mg/dL Total Bilirubin 0.3 (0.2-1.0) mg/dL AST 24 (10-42) IU/L ALT 16 (10-60) IU/L Alkaline Phosphatase 33 L (42-121) IU/L Total Protein 4.6 L (6.7-8.2) g/dL Albumin 2.3 L (3.2-5.5) g/dL Globulin 2.3 (2.1-4.2) g/dL Albumin/Globulin Ratio 1.0 (1.0-2.2) - Current Medications Current Medications: Current Medications Generic Name Dose Route Start Last Admin Trade Name Freq PRN Reason Stop Dose Admin Celecoxib 200 mg 12/26/17 10:00 12/27/17 10:08 Celebrex PO Not Given DAILY ELIZA Hydromorphone HCl 10 mg 12/26/17 16:54 12/26/17 18:09 Dilaudid Montessori Toddler Teacher (Use Montessori Toddler Teacher Order Set) IV 10 mg PRN PRN Administration PAIN Protocol Acetaminophen 100 mls @ 400 mls/hr 12/25/17 23:00 12/27/17 12:05 Ofirmev IV 12/29/17 23:59 400 mls/hr Q6H ELIZA Administration Cefepime HCl 1 gm/ Sodium 100 mls @ 200 mls/hr 12/26/17 13:00 12/27/17 02:00 Chloride IV Infused Q12H ELIZA Infusion Metronidazole 500 mg in 100 mls @ 100 mls/hr 12/26/17 10:00 12/27/17 11:02 Flagyl 500 Mg/100 Ml IV 100 mls/hr Q8H ELIZA Administration Potassium Chloride 20 meq/ 1,010 mls @ 100 mls/hr 12/27/17 08:00 12/27/17 10: 08 Dextrose/Sodium Chloride IV 100 mls/hr .Q10H6M ELIZA Administration Levothyroxine Sodium 125 mcg 12/26/17 07:00 12/27/17 06:45 Synthroid PO 125 mcg QDAC ELIZA Administration Morphine Sulfate 2 mg 12/26/17 09:19 12/26/17 14:58 Morphine (Carpuject) IVP 2 mg Q30M PRN Administration Abdominal Pain Ondansetron HCl 4 mg 12/25/17 22:26 12/27/17 10:09 Zofran Inj IVP 4 mg Q4HR PRN Administration Nausea / Vomiting Prochlorperazine Edisylate 10 mg 12/26/17 18:46 12/27/17 11:06 Compazine Inj IVP 10 mg Q4HR PRN Administration Nausea / Vomiting Sodium Chloride 10 ml 12/25/17 22:00 12/27/17 11:09 Normal Saline Flush 0.9% IVP 20 ml Q8HR ELIZA Administration Sodium Chloride 10 ml 12/25/17 21:40 12/26/17 14:59 Normal Saline Flush 0.9% IVP 10 ml PRN PRN Administration NEEDED PER PROVIDER ORDERS - Physical Exam Wound/Incisions: positive: Dressing dry and intact, Other (Packing removed with Yoli (nurse) and repacked. No erythema. Drainage slightly sanguinous.) General Appearance: positive: No acute distress Eyes Bilateral: positive: No lid inflammation, Conjunctivae nml, No scleral icterus Neck: positive: Trachea midline Respiratory: positive: Chest non-tender, No respiratory distress, Breath sounds nml Cardiovascular: positive: Regular rate & rhythm Abdomen: positive: Other (Incisional tenderness. No bowel sounds. Ostomy pink. No production.) Skin: positive: Color nml Extremities: positive: Non-tender, Full ROM, Nml appearance Neurologic/Psychiatric: positive: Oriented x3 Impression/Plan - Problem List Problem List: D2 s/p sigmoidectomy for stercoral perforation, end colostomy, Hartmans, abdominal washout, 19 Fr Popeye drain 1) FEN Continue IVF. Try some clear liquids slowly more for comfort. No NG. Await bowel function in ostomy. Added Compazine. 2) DVT prophylaxis Continue TEDs and venadynes. Up in chair TID and up with walker. 3) Pathology Pending. 4) Pain Will order chronic pain consult to evaluate and treat hip pain as it is very unlikely that it will be operated on for 6 or more months. 5) Activity Up in chair TID and up with walker. Get PT and OT involved. 6) Yousif Had to be replaced as patient could not void. 7) Depression Not unexpected following this surgery. Hopefully transient. When she can take po meds may treat if still present.
[2017-12-28] MEDS: CEFEPIME 1 GM in SODIUM CHLORIDE 0.9% MINIBAG 100 ML IV SCH ×2 (00:20→14:07)
[2017-12-28] MEDS: ONDANSETRON 4 MG/2 ML VIAL IVP PRN ×2 (00:27→04:15)
[2017-12-28] MEDS: SODIUM CHLORIDE FLUSH 0.9% 10 ML SYRINGE IVP SCH ×3 (00:27→18:29)
[2017-12-28] MEDS: metroNIDAZOLE 500 MG/100 ML 500 MG/100 ML BAG IV SCH ×3 (01:05→17:46)
[2017-12-28] MEDS: ACETAMINOPHEN 1,000 MG/100 ML 100 ML IV SCH ×4 (04:15→22:23)
[2017-12-28 04:56] LABS: BASOPHILS % (AUTO) 0.3 %; EOSINOPHILS # (AUTO) 0.1 10^3/uL (0.0-0.7); EOSINOPHILS % (AUTO) 1.8 %; HGB - HEMOGLOBIN 9.4 g/dL (12.0-16.0); LYMPHOCYTES # (AUTO) 0.8 10^3/uL (1.5-3.5); LYMPHOCYTES % (AUTO) 12.9 %; MEAN CORPUSCULAR HEMOGLOBIN 31.9 pg (27.0-31.0); MEAN CORPUSCULAR VOLUME 96.8 fL (81.0-99.0); MEAN PLATELET VOLUME 8.1 fL (7.9-10.8); MONOCYTES # (AUTO) 0.3 10^3/uL (0.0-1.0); MONOCYTES % (AUTO) 5.2 %; NEUTROPHILS # (AUTO) 5.1 10^3/uL (1.5-6.6); NEUTROPHILS % (AUTO) 79.8 %; PLT - PLATELET COUNT 142 10^3/uL (130-450); RED BLOOD COUNT 2.94 10^6/uL (4.20-5.40); RED CELL DISTRIBUTION WIDTH 13.9 % (12.0-15.0); WHITE BLOOD COUNT 6.4 x10^3/uL (4.8-10.8)
[2017-12-28 04:59] LABS: ALBUMIN 2.4 g/dL (3.2-5.5); BILIRUBIN,TOTAL 0.6 mg/dL (0.2-1.0); CALCIUM 7.2 mg/dL (8.5-10.3); CREATININE 0.5 mg/dL (0.4-1.0); TOTAL PROTEIN 4.7 g/dL (6.7-8.2)
[2017-12-28] MEDS: POTASSIUM CHLORIDE INJ 20 MEQ in DEXTROSE 5%-0.9% NACL 1,000 ML IV SCH ×2 (05:49→17:39)
[2017-12-28] MEDS: LEVOTHYROXINE 125 MCG TABLET PO SCH (06:39)
[2017-12-28] MEDS: CELECOXIB 100 MG CAPSULE PO SCH (07:39)
[2017-12-28] MEDS: PROCHLORPERAZINE 10 MG/2 ML VIAL IVP PRN ×3 (08:49→20:43)
--- NOTE | 2017-12-28 09:09 | PROVIDER PROGRESS NOTE ---
Subjective - General Admit Date: 12/25/17 Procedure Date: 12/25/17 Post Op Days: 3 Procedure Performed: Sigmoidectomy, end colostomy, Hartmans, abdominal washout, 19 Fr drain - Review of Systems Wound/Incisions: positive: Dressing dry and intact, Other (Packing removed with Yoli (nurse) and repacked. No erythema. Drainage slightly sanguinous.) Drain Type: 19 Fr Popeye Drain Output Description: Serosanguinous but decreasing and becoming more serous Approximate mls Output: 65 General: positive: Other (Did not sleep much last night.) HEENT: positive: No symptoms, Other (Dry mouth.) Pulmonary: positive: No symptoms Cardiovascular: positive: No symptoms Gastrointestinal: positive: Nausea (Occasional.), Vomiting (Vomited once this AM.), Abdominal pain (Incisional but better than yesterday.) Genitourinary: positive: Other (Required Yousif to be replaced.) Musculoskeletal: positive: Other (Hip pain.) Psychiatric: positive: No symptoms Objective - Patient Data Reviewed Vital Signs: Yes Vital Signs: Vital Signs x48h Temp Pulse Resp BP Pulse Ox 12/28/17 06:00 16 12/28/17 05:00 36.9 C 67 18 136/73 H 94 12/28/17 01:09 12 Intake & Output: Intake and Output Totals x24h 12/26/17 12/27/17 12/28/17 23:59 23:59 23:59 Intake Total 2950.000 3030 1310 Output Total 1360 1235 375 Balance 7632.267 1494 935 - Lab Results Lab Results: 12/28/17 04:24 12/28/17 04:24 Other Lab Results: Lab Results x24hrs 12/28/17 12/28/17 Range/Units 04:24 04:24 WBC 6.4 (4.8-10.8) x10^3/uL RBC 2.94 L (4.20-5.40) 10^6/uL Hgb 9.4 L (12.0-16.0) g/dL Hct 28.5 L (37.0-47.0) % MCV 96.8 (81.0-99.0) fL MCH 31.9 H (27.0-31.0) pg MCHC 33.0 (32.0-36.0) g/dL RDW 13.9 (12.0-15.0) % Plt Count 142 (130-450) 10^3/uL MPV 8.1 (7.9-10.8) fL Neut # 5.1 (1.5-6.6) 10^3/uL Lymph # 0.8 L (1.5-3.5) 10^3/uL [place] # 0.3 (0.0-1.0) 10^3/uL Eos # 0.1 (0.0-0.7) 10^3/uL Baso # 0.0 (0.0-0.1) 10^3/uL Absolute Nucleated RBC 0.00 x10^3/uL Nucleated RBC % 0.0 /100WBC Sodium 135 (135-145) mmol/L Potassium 3.6 (3.5-5.0) mmol/L Chloride 111 (101-111) mmol/L Carbon Dioxide 21 (21-32) mmol/L Anion Gap 3.0 L (6-13) BUN 14 (6-20) mg/dL Creatinine 0.5 (0.4-1.0) mg/dL Estimated GFR (MDRD) 120 (>89) Glucose 120 H (70-100) mg/dL Calcium 7.2 L (8.5-10.3) mg/dL Total Bilirubin 0.6 (0.2-1.0) mg/dL AST 22 (10-42) IU/L ALT 15 (10-60) IU/L Alkaline Phosphatase 41 L (42-121) IU/L Total Protein 4.7 L (6.7-8.2) g/dL Albumin 2.4 L (3.2-5.5) g/dL Globulin 2.3 (2.1-4.2) g/dL Albumin/Globulin Ratio 1.0 (1.0-2.2) - Current Medications Current Medications: Current Medications Generic Name Dose Route Start Last Admin Trade Name Freq PRN Reason Stop Dose Admin Celecoxib 200 mg 12/26/17 10:00 12/28/17 07:39 Celebrex PO Not Given DAILY ELIZA Hydromorphone HCl 10 mg 12/26/17 16:54 12/26/17 18:09 Dilaudid Body Cleaner (Use Body Cleaner Order Set) IV 10 mg PRN PRN Administration PAIN Protocol Acetaminophen 100 mls @ 400 mls/hr 12/25/17 23:00 12/28/17 04:30 Ofirmev IV 12/29/17 23:59 Infused Q6H ELIZA Infusion Cefepime HCl 1 gm/ Sodium 100 mls @ 200 mls/hr 12/26/17 13:00 12/28/17 01:06 Chloride IV Infused Q12H ELIZA Infusion Metronidazole 500 mg in 100 mls @ 100 mls/hr 12/26/17 10:00 12/28/17 02:00 Flagyl 500 Mg/100 Ml IV Infused Q8H ELIZA Infusion Potassium Chloride 20 meq/ 1,010 mls @ 100 mls/hr 12/27/17 08:00 12/28/17 05: 49 Dextrose/Sodium Chloride IV 100 mls/hr .Q10H6M ELIZA Administration Levothyroxine Sodium 125 mcg 12/26/17 07:00 12/28/17 06:39 Synthroid PO Not Given QDAC [facility] Morphine Sulfate 2 mg 12/26/17 09:19 12/26/17 14:58 Morphine (Carpuject) IVP 2 mg Q30M PRN Administration Abdominal Pain Ondansetron HCl 4 mg 12/25/17 22:26 12/28/17 04:15 Zofran Inj IVP 4 mg Q4HR PRN Administration Nausea / Vomiting Prochlorperazine Edisylate 10 mg 12/26/17 18:46 12/28/17 08:49 Compazine Inj IVP 10 mg Q4HR PRN Administration Nausea / Vomiting Sodium Chloride 10 ml 12/25/17 22:00 12/28/17 00:27 Normal Saline Flush 0.9% IVP 10 ml Q8HR ELIZA Administration Sodium Chloride 10 ml 12/25/17 21:40 12/26/17 14:59 Normal Saline Flush 0.9% IVP 10 ml PRN PRN Administration NEEDED PER PROVIDER ORDERS - Physical Exam Wound/Incisions: positive: Dressing dry and intact General Appearance: positive: Moderate distress (Did not sleep, nauseous - generally feels miserable.) Eyes Bilateral: positive: No lid inflammation, Conjunctivae nml, No scleral icterus Neck: positive: Trachea midline Respiratory: positive: Chest non-tender, No respiratory distress, Breath sounds nml Cardiovascular: positive: Regular rate & rhythm Abdomen: positive: Nml bowel sounds, Other (Ostomy pink and productive of a large amount of air.) Skin: positive: Color nml Extremities: positive: Non-tender, Full ROM, Nml appearance Neurologic/Psychiatric: positive: Oriented x3 Impression/Plan - Problem List Problem List: D3 s/p sigmoidectomy for stercoral perforation, end colostomy, Hartmans, abdominal washout, 19 Fr Popeye drain 1) FEN Continue IVF. Start general diet as patient thinks her hunger is making her nauseous - instructed her to "pick and choose." 2) DVT prophylaxis Continue TEDs and venadynes. Has not walked yet - this is a problem. Needs to be MUCH more active. 3) Pathology Pending. 4) Pain Will order chronic pain consult to evaluate and treat hip pain as it is very unlikely that it will be operated on for 6 or more months. 5) Activity I am NOT happy with the amount of movement and time out of bed. She needs MUCH more activity. 6) Yousif Remove today and see if it can be left out. Patient wants Yousif and I explained why it must be removed. 7) Depression Not unexpected following this surgery. Hopefully transient. When she can take po meds may treat if still present.
[2017-12-29] MEDS: CEFEPIME 1 GM in SODIUM CHLORIDE 0.9% MINIBAG 100 ML IV SCH ×2 (01:01→13:16)
[2017-12-29] MEDS: metroNIDAZOLE 500 MG/100 ML 500 MG/100 ML BAG IV SCH ×3 (01:50→17:18)
[2017-12-29 04:27] LABS: BASOPHILS % (AUTO) 0.2 %; EOSINOPHILS % (AUTO) 0.7 %; HGB - HEMOGLOBIN 9.5 g/dL (12.0-16.0); LYMPHOCYTES # (AUTO) 0.7 10^3/uL (1.5-3.5); LYMPHOCYTES % (AUTO) 12.5 %; MEAN CORPUSCULAR HEMOGLOBIN 31.2 pg (27.0-31.0); MEAN CORPUSCULAR HGB CONC 32.5 g/dL (32.0-36.0); MEAN CORPUSCULAR VOLUME 96.2 fL (81.0-99.0); MEAN PLATELET VOLUME 8.5 fL (7.9-10.8); MONOCYTES # (AUTO) 0.4 10^3/uL (0.0-1.0); MONOCYTES % (AUTO) 7.1 %; NEUTROPHILS # (AUTO) 4.4 10^3/uL (1.5-6.6); NEUTROPHILS % (AUTO) 79.5 %; PLT - PLATELET COUNT 151 10^3/uL (130-450); RED BLOOD COUNT 3.04 10^6/uL (4.20-5.40); RED CELL DISTRIBUTION WIDTH 14.1 % (12.0-15.0); WHITE BLOOD COUNT 5.5 x10^3/uL (4.8-10.8)
[2017-12-29 04:34] LABS: ALBUMIN 2.6 g/dL (3.2-5.5); ALBUMIN/GLOBULIN RATIO 1.1 (1.0-2.2); BILIRUBIN,TOTAL 0.7 mg/dL (0.2-1.0); CALCIUM 7.6 mg/dL (8.5-10.3); CREATININE 0.5 mg/dL (0.4-1.0); TOTAL PROTEIN 4.9 g/dL (6.7-8.2)
[2017-12-29] MEDS: ACETAMINOPHEN 1,000 MG/100 ML 100 ML IV SCH ×3 (05:06→17:18)
[2017-12-29] MEDS: POTASSIUM CHLORIDE INJ 20 MEQ in DEXTROSE 5%-0.9% NACL 1,000 ML IV SCH ×3 (05:35→23:37)
[2017-12-29] MEDS: SODIUM CHLORIDE FLUSH 0.9% 10 ML SYRINGE IVP SCH ×3 (05:36→21:09)
[2017-12-29] MEDS: LEVOTHYROXINE 125 MCG TABLET PO SCH (06:55)
[2017-12-29] MEDS: PROCHLORPERAZINE 10 MG/2 ML VIAL IVP PRN ×3 (08:02→19:31)
[2017-12-29] MEDS: SODIUM CHLORIDE FLUSH 0.9% 10 ML SYRINGE IVP PRN ×2 (08:05→08:54)
[2017-12-29] MEDS: ONDANSETRON 4 MG/2 ML VIAL IVP PRN ×3 (08:54→21:07)
[2017-12-29] MEDS: CELECOXIB 100 MG CAPSULE PO SCH (11:02)
[2017-12-29] MEDS: KETOROLAC 15 MG/ML VIAL IVP PRN (19:31)
[2017-12-30] MEDS: PROCHLORPERAZINE 10 MG/2 ML VIAL IVP PRN ×5 (00:04→21:39)
[2017-12-30] MEDS: ACETAMINOPHEN 1,000 MG/100 ML 100 ML IV SCH (00:04)
[2017-12-30] MEDS: CEFEPIME 1 GM in SODIUM CHLORIDE 0.9% MINIBAG 100 ML IV SCH ×3 (01:04→23:56)
[2017-12-30] MEDS: metroNIDAZOLE 500 MG/100 ML 500 MG/100 ML BAG IV SCH ×3 (02:26→17:50)
[2017-12-30] MEDS: SODIUM CHLORIDE FLUSH 0.9% 10 ML SYRINGE IVP SCH ×3 (04:32→19:13)
[2017-12-30] MEDS: SODIUM CHLORIDE FLUSH 0.9% 10 ML SYRINGE IVP PRN ×3 (04:39→11:52)
[2017-12-30] MEDS: POTASSIUM CHLORIDE INJ 20 MEQ in DEXTROSE 5%-0.9% NACL 1,000 ML IV SCH ×2 (06:12→17:44)
[2017-12-30] MEDS: LEVOTHYROXINE 125 MCG TABLET PO SCH ×2 (06:12→06:36)
[2017-12-30] MEDS: ONDANSETRON 4 MG/2 ML VIAL IVP PRN ×3 (06:36→20:11)
[2017-12-30] MEDS: CELECOXIB 100 MG CAPSULE PO SCH (09:36)
[2017-12-30] MEDS: KETOROLAC 15 MG/ML VIAL IVP PRN ×2 (11:44→21:44)
[2017-12-30] MEDS: DOCUSATE SODIUM 250 MG CAPSULE PO SCH (14:42)
[2017-12-30] MEDS ORDERED: SODIUM CHLORIDE FLUSH 0.9% 10 ML SYRINGE ONE (16:02)
--- NOTE | 2017-12-30 23:50 | PROVIDER PROGRESS NOTE ---
Subjective - General Admit Date: 12/25/17 Procedure Date: 12/25/17 Post Op Days: 5 Procedure Performed: Sigmoidectomy, end colostomy, Hartmans, abdominal washout, 19 Fr drain - Review of Systems Wound/Incisions: positive: Dressing dry and intact Drain Type: 19 Fr Popeye Drain Output Description: Serosanguinous but decreasing and becoming more serous Approximate mls Output: 65 General: positive: Other (Did not sleep much last night.) HEENT: positive: No symptoms, Other (Dry mouth.) Pulmonary: positive: No symptoms Cardiovascular: positive: No symptoms Gastrointestinal: positive: Nausea (Occasional.), Abdominal pain (Incisional but better than yesterday.) Genitourinary: positive: Other (Required Yousif to be replaced.) Musculoskeletal: positive: Other (Hip pain.) Psychiatric: positive: No symptoms Objective - Patient Data Vital Signs: Vital Signs x48h Temp Pulse Resp BP Pulse Ox 12/30/17 19:54 36.5 C 78 20 122/60 93 12/30/17 16:07 36.4 C L 62 18 125/67 95 Intake & Output: Intake and Output Totals x24h 12/28/17 12/29/17 12/30/17 23:59 23:59 23:59 Intake Total 4235.000 3140 2990.000 Output Total 460 742 7981 Balance 3805.000 2925 1660.000 - Lab Results Lab Results: 12/29/17 04:12 12/29/17 04:12 - Current Medications Current Medications: Current Medications Generic Name Dose Route Start Last Admin Trade Name Freq PRN Reason Stop Dose Admin Celecoxib 200 mg 12/26/17 10:00 12/30/17 09:36 Celebrex PO 200 mg DAILY ELIZA Administration Docusate Sodium 250 mg 12/30/17 15:00 12/30/17 14:42 Colace 250mg Capsule PO 250 mg DAILY ELIZA Administration Hydromorphone HCl 10 mg 12/26/17 16:54 12/26/17 18:09 Dilaudid Combination Operator (Use Combination Operator Order Set) IV 10 mg PRN PRN Administration PAIN Protocol Cefepime HCl 1 gm/ Sodium 100 mls @ 200 mls/hr 12/26/17 13:00 12/30/17 15:30 Chloride IV Infused Q12H ELIZA Infusion Metronidazole 500 mg in 100 mls @ 100 mls/hr 12/26/17 10:00 12/30/17 18:52 Flagyl 500 Mg/100 Ml IV Infused Q8H ELIZA Infusion Potassium Chloride 20 meq/ 1,010 mls @ 100 mls/hr 12/29/17 18:00 12/30/17 17: 44 Dextrose/Sodium Chloride IV 100 mls/hr .Q10H6M ELIZA Administration Ketorolac Tromethamine 15 mg 12/29/17 17:16 12/30/17 21:44 Toradol Inj IVP 01/03/18 17:15 15 mg Q6HR PRN Administration PAIN Levothyroxine Sodium 125 mcg 12/26/17 07:00 12/30/17 06:36 Synthroid PO 125 mcg QDAC ELIZA Administration Morphine Sulfate 2 mg 12/26/17 09:19 12/26/17 14:58 Morphine (Carpuject) IVP 2 mg Q30M PRN Administration Abdominal Pain Ondansetron HCl 4 mg 12/25/17 22:26 12/30/17 20:11 Zofran Inj IVP 4 mg Q4HR PRN Administration Nausea / Vomiting Prochlorperazine Edisylate 10 mg 12/26/17 18:46 12/30/17 21:39 Compazine Inj IVP 10 mg Q4HR PRN Administration Nausea / Vomiting Sodium Chloride 10 ml 12/25/17 22:00 12/30/17 19:13 Normal Saline Flush 0.9% IVP Not Given Q8HR ELIZA Sodium Chloride 10 ml 12/25/17 21:40 12/30/17 11:52 Normal Saline Flush 0.9% IVP 10 ml PRN PRN Administration NEEDED PER PROVIDER ORDERS - Physical Exam Wound/Incisions: positive: Other (open wound clean Hard stool in ostomy bag) Impression/Plan - Problem List Problem List: s/p hartmans for perforated diverticulitis with abscess. Slowly improving. Now having stool out ostomy but hard. Wound/ostomy care ambulate Continue iv antibiotics advance diet
[2017-12-31] MEDS: metroNIDAZOLE 500 MG/100 ML 500 MG/100 ML BAG IV SCH ×3 (01:52→17:53)
[2017-12-31] MEDS: KETOROLAC 15 MG/ML VIAL IVP PRN ×4 (01:53→22:18)
[2017-12-31] MEDS: SODIUM CHLORIDE FLUSH 0.9% 10 ML SYRINGE IVP SCH ×3 (01:55→17:53)
[2017-12-31] MEDS: ONDANSETRON 4 MG/2 ML VIAL IVP PRN ×4 (01:55→18:24)
[2017-12-31] MEDS: PROCHLORPERAZINE 10 MG/2 ML VIAL IVP PRN ×3 (03:00→12:03)
[2017-12-31] MEDS: SODIUM CHLORIDE FLUSH 0.9% 10 ML SYRINGE IVP PRN ×4 (03:00→09:43)
[2017-12-31] MEDS: POTASSIUM CHLORIDE INJ 20 MEQ in DEXTROSE 5%-0.9% NACL 1,000 ML IV SCH ×3 (04:55→14:26)
[2017-12-31] MEDS: CARBOXYMETHYLCELLULOSE OPHTH DROPS EACHEYE PRN ×2 (07:21→12:58)
[2017-12-31] MEDS: DOCUSATE SODIUM 250 MG CAPSULE PO SCH (08:17)
[2017-12-31] MEDS: CELECOXIB 100 MG CAPSULE PO SCH (08:18)
[2017-12-31] MEDS: CEFEPIME 1 GM in SODIUM CHLORIDE 0.9% MINIBAG 100 ML IV SCH (12:57)
[2017-12-31] MEDS ORDERED: FUROSEMIDE 20 MG/2 ML VIAL IVP SCH ×2 (14:00→18:00)
[2017-12-31] MEDS: METOCLOPRAMIDE 10 MG/2 ML VIAL IVP SCH ×2 (14:27→17:52)
[2018-01-01] MEDS: METOCLOPRAMIDE 10 MG/2 ML VIAL IVP SCH ×5 (00:36→23:59)
[2018-01-01] MEDS: CEFEPIME 1 GM in SODIUM CHLORIDE 0.9% MINIBAG 100 ML IV SCH ×2 (00:36→13:39)
[2018-01-01] MEDS: SODIUM CHLORIDE FLUSH 0.9% 10 ML SYRINGE IVP PRN (00:37)
[2018-01-01] MEDS: metroNIDAZOLE 500 MG/100 ML 500 MG/100 ML BAG IV SCH ×3 (01:59→18:16)
[2018-01-01] MEDS: ONDANSETRON 4 MG/2 ML VIAL IVP PRN ×2 (01:59→09:01)
[2018-01-01 05:11] LABS: CALCIUM 7.3 mg/dL (8.5-10.3); CREATININE 0.5 mg/dL (0.4-1.0)
[2018-01-01] MEDS: SODIUM CHLORIDE FLUSH 0.9% 10 ML SYRINGE IVP SCH ×4 (06:03→23:59)
[2018-01-01] MEDS: LEVOTHYROXINE 125 MCG TABLET PO SCH (06:06)
[2018-01-01] MEDS: CELECOXIB 100 MG CAPSULE PO SCH (09:01)
[2018-01-01] MEDS: DOCUSATE SODIUM 250 MG CAPSULE PO SCH ×2 (09:01→12:06)
[2018-01-01] MEDS: POTASSIUM CHLORIDE INJ 20 MEQ in DEXTROSE 5%-0.9% NACL 1,000 ML IV SCH (12:10)
--- NOTE | 2018-01-01 12:15 | PROVIDER PROGRESS NOTE ---
Subjective - General Admit Date: 12/25/17 Procedure Date: 12/25/17 Post Op Days: 7 Procedure Performed: Sigmoidectomy, end colostomy, Hartmans, abdominal washout, 19 Fr drain - Review of Systems Wound/Incisions: positive: Other (open wound clean Hard stool in ostomy bag) Drain Type: 19 Fr Popeye Drain Output Description: Serous Approximate mls Output: 70 General: positive: Other (Did not sleep much last night. Still complaining of profound nausea despite bowel function in colosotmy bag.) HEENT: positive: No symptoms, Other (Dry mouth.) Pulmonary: positive: No symptoms Cardiovascular: positive: No symptoms Gastrointestinal: positive: Nausea (Occasional.), Vomiting, Other (Hard stool in bag.) Genitourinary: positive: Other (Required Yousif to be replaced.) Musculoskeletal: positive: Other (Hip pain.) Skin: positive: No symptoms Psychiatric: positive: No symptoms Objective - Patient Data Reviewed Vital Signs: Yes Vital Signs: Vital Signs x48h Temp Pulse Resp BP Pulse Ox 01/01/18 07:57 36.9 C 57 L 17 148/65 H 96 01/01/18 05:00 36.6 C 67 20 141/63 H 95 Intake & Output: Intake and Output Totals x24h 12/30/17 12/31/17 01/01/18 23:59 23:59 23:59 Intake Total 3610.000 2735.333 683 Output Total 1330 2370 1545 Balance 2280.000 365.333 -862 - Lab Results Lab Results: 12/29/17 04:12 01/01/18 04:46 Other Lab Results: Lab Results x24hrs 01/01/18 Range/Units 04:46 Sodium 135 (135-145) mmol/L Potassium 3.1 L (3.5-5.0) mmol/L Chloride 102 (101-111) mmol/L Carbon Dioxide 25 (21-32) mmol/L Anion Gap 8.0 (6-13) BUN 7 (6-20) mg/dL Creatinine 0.5 (0.4-1.0) mg/dL Estimated GFR (MDRD) 120 (>89) Glucose 114 H (70-100) mg/dL Calcium 7.3 L (8.5-10.3) mg/dL - Current Medications Current Medications: Current Medications Generic Name Dose Route Start Last Admin Trade Name Freq PRN Reason Stop Dose Admin Carboxymethylcellulose 1 drops 12/31/17 07:00 12/31/17 12:58 Refresh 1% Ophth Drops EACHEYE 1 drops PRN PRN Administration Dry Eye Celecoxib 200 mg 12/26/17 10:00 01/01/18 09:01 Celebrex PO 200 mg DAILY ELIZA Administration Docusate Sodium 250 mg 12/30/17 15:00 12/31/17 08:17 Colace 250mg Capsule PO 250 mg DAILY ELIZA Administration Hydromorphone HCl 10 mg 12/26/17 16:54 12/26/17 18:09 Dilaudid Roller Mill Operator (Use Roller Mill Operator Order Set) IV 10 mg PRN PRN Administration PAIN Protocol Cefepime HCl 1 gm/ Sodium 100 mls @ 200 mls/hr 12/26/17 13:00 01/01/18 01:10 Chloride IV Infused Q12H ELIZA Infusion Metronidazole 500 mg in 100 mls @ 100 mls/hr 12/26/17 10:00 01/01/18 10:05 Flagyl 500 Mg/100 Ml IV Infused Q8H ELIZA Infusion Potassium Chloride 20 meq/ 1,010 mls @ 50 mls/hr 12/31/17 13:28 12/31/17 14: 26 Dextrose/Sodium Chloride IV 50 mls/hr .[id number] ELIZA Administration Ketorolac Tromethamine 15 mg 12/29/17 17:16 12/31/17 22:18 Toradol Inj IVP 01/03/18 17:15 15 mg Q6HR PRN Administration PAIN Levothyroxine Sodium 125 mcg 12/26/17 07:00 01/01/18 06:06 Synthroid PO 125 mcg QDAC ELIZA Administration Metoclopramide HCl 10 mg 12/31/17 14:00 01/01/18 06:06 Reglan Inj IVP 01/02/18 06:01 10 mg Q6HR ELIZA Administration Morphine Sulfate 2 mg 12/26/17 09:19 12/26/17 14:58 Morphine (Carpuject) IVP 2 mg Q30M PRN Administration Abdominal Pain Ondansetron HCl 4 mg 12/25/17 22:26 01/01/18 09:01 Zofran Inj IVP 4 mg Q4HR PRN Administration Nausea / Vomiting Sodium Chloride 10 ml 12/25/17 22:00 01/01/18 06:03 Normal Saline Flush 0.9% IVP Not Given Q8HR ELIZA Sodium Chloride 10 ml 12/25/17 21:40 01/01/18 00:37 Normal Saline Flush 0.9% IVP 10 ml PRN PRN Administration NEEDED PER PROVIDER ORDERS - Physical Exam General Appearance: positive: No acute distress Eyes Bilateral: positive: No lid inflammation, Conjunctivae nml, No scleral icterus Neck: positive: Trachea midline Respiratory: positive: Chest non-tender, No respiratory distress, Breath sounds nml Cardiovascular: positive: Regular rate & rhythm Abdomen: positive: Nml bowel sounds, Other (Ostomy pink and productive.) Skin: positive: Color nml Neurologic/Psychiatric: positive: Oriented x3 Impression/Plan - Problem List Problem List: D7 s/p sigmoidectomy for stercoral perforation, end colostomy, Hartmans, abdominal washout, 19 Fr Popeye drain 1) FEN Continue IVF. Still nauseous with bowel function present. Tried almost all medications without significant result. 2) DVT prophylaxis Continue TEDs and venadynes. Doing much better with activity. I still want much more. 3) Pathology States that it was diverticular and I disagree. This was clearly a stercoral perforation. 4) Pain Ordered chronic pain consult to evaluate and treat hip pain as it is very unlikely that it will be operated on for 6 or more months. 5) Activity Patient continues to need MUCH more activity. 6) Depression Not unexpected following this surgery. Hopefully transient. When she can take po meds may treat if still present. 7) Nausea All the medications have not helped - ordered AXR to determine if there is an ileus.
[2018-01-01] MEDS: CARBOXYMETHYLCELLULOSE OPHTH DROPS EACHEYE PRN (14:31)
--- NOTE | 2018-01-01 14:37 | XRAY Report ---
DATE OF SERVICE: THREE VIEW ABDOMEN: 01/01/2018 CLINICAL INDICATION: Persistent nausea and vomiting. FINDINGS: Supine, upright, and decubitus views of the abdomen were obtained. A large amount of stool is seen throughout the colon. A left lower quadrant colostomy is noted. No free intraperitoneal gas is appreciated. Surgical drain is noted in the pelvis. A pessary is noted in the pelvis. IMPRESSION: LARGE AMOUNT OF STOOL REMAINS THROUGHOUT THE COLON. NO EVIDENCE OF SMALL BOWEL DILATATION OR PERSISTENT FREE INTRAPERITONEAL GAS. SURGICAL DRAIN AND PESSARY IN THE PELVIS. TD: 01/01/2018 14:37
[2018-01-02] MEDS: CEFEPIME 1 GM in SODIUM CHLORIDE 0.9% MINIBAG 100 ML IV SCH ×2 (01:36→13:54)
[2018-01-02] MEDS: metroNIDAZOLE 500 MG/100 ML 500 MG/100 ML BAG IV SCH ×3 (02:09→18:31)
[2018-01-02] MEDS: METOCLOPRAMIDE 10 MG/2 ML VIAL IVP SCH (05:57)
[2018-01-02] MEDS: LEVOTHYROXINE 125 MCG TABLET PO SCH ×2 (05:58→13:33)
[2018-01-02] MEDS: SODIUM CHLORIDE FLUSH 0.9% 10 ML SYRINGE IVP PRN (05:58)
--- NOTE | 2018-01-02 11:56 | PROVIDER PROGRESS NOTE ---
Subjective - General Admit Date: 12/25/17 Procedure Date: 12/25/17 Post Op Days: 8 Procedure Performed: Sigmoidectomy, end colostomy, Hartmans, abdominal washout, 19 Fr drain - Review of Systems Wound/Incisions: positive: Other (open wound clean Hard stool in ostomy bag) Drain Type: 19 Fr Popeye Drain Output Description: Serous Approximate mls Output: 160 General: positive: Other (Did not sleep much last night. Still complaining of profound nausea - not nearly enough ostomy output.) HEENT: positive: No symptoms Pulmonary: positive: No symptoms Cardiovascular: positive: No symptoms Gastrointestinal: positive: Nausea (Occasional.), Vomiting, Other (Minimal hard stool in bag.) Genitourinary: positive: Other (Required Yousif to be replaced.) Musculoskeletal: positive: Other (Hip pain.) Skin: positive: No symptoms Psychiatric: positive: No symptoms Objective - Patient Data Reviewed Vital Signs: Yes Vital Signs: Vital Signs x48h Temp Pulse Resp BP Pulse Ox 01/02/18 07:23 36.6 C 65 16 148/65 H 93 01/02/18 05:00 36.7 C 62 20 135/61 H 93 Intake & Output: Intake and Output Totals x24h 12/31/17 01/01/18 01/02/18 23:59 23:59 23:59 Intake Total 2735.333 2843 280 Output Total 2370 2990 2380 Balance 365.333 -147 -2100 - Lab Results Lab Results: 12/29/17 04:12 01/01/18 04:46 - Current Medications Current Medications: Current Medications Generic Name Dose Route Start Last Admin Trade Name Freq PRN Reason Stop Dose Admin Carboxymethylcellulose 1 drops 12/31/17 07:00 01/01/18 14:31 Refresh 1% Ophth Drops EACHEYE 1 drops PRN PRN Administration Dry Eye Celecoxib 200 mg 12/26/17 10:00 01/01/18 09:01 Celebrex PO 200 mg DAILY ELIZA Administration Docusate Sodium 250 mg 12/30/17 15:00 01/01/18 12:06 Colace 250mg Capsule PO Not Given DAILY ELIZA Hydromorphone HCl 10 mg 12/26/17 16:54 12/26/17 18:09 Dilaudid Plan Rep (Use Plan Rep Order Set) IV 10 mg PRN PRN Administration PAIN Protocol Cefepime HCl 1 gm/ Sodium 100 mls @ 200 mls/hr 12/26/17 13:00 01/02/18 02:15 Chloride IV Infused Q12H ELIZA Infusion Metronidazole 500 mg in 100 mls @ 100 mls/hr 12/26/17 10:00 01/02/18 03:59 Flagyl 500 Mg/100 Ml IV Infused Q8H ELIZA Infusion Potassium Chloride 20 meq/ 1,010 mls @ 50 mls/hr 12/31/17 13:28 01/01/18 12: 10 Dextrose/Sodium Chloride IV 50 mls/hr .[id number] ELIZA Administration Ketorolac Tromethamine 15 mg 12/29/17 17:16 12/31/17 22:18 Toradol Inj IVP 01/03/18 17:15 15 mg Q6HR PRN Administration PAIN Levothyroxine Sodium 125 mcg 12/26/17 07:00 01/01/18 06:06 Synthroid PO 125 mcg QDAC ELIZA Administration Morphine Sulfate 2 mg 12/26/17 09:19 12/26/17 14:58 Morphine (Carpuject) IVP 2 mg Q30M PRN Administration Abdominal Pain Ondansetron HCl 4 mg 12/25/17 22:26 01/01/18 09:01 Zofran Inj IVP 4 mg Q4HR PRN Administration Nausea / Vomiting Sodium Chloride 10 ml 12/25/17 22:00 01/01/18 23:59 Normal Saline Flush 0.9% IVP 10 ml Q8HR ELIZA Administration Sodium Chloride 10 ml 12/25/17 21:40 01/02/18 05:58 Normal Saline Flush 0.9% IVP 10 ml PRN PRN Administration NEEDED PER PROVIDER ORDERS - Physical Exam Wound/Incisions: positive: Healing well General Appearance: positive: No acute distress Eyes Bilateral: positive: No lid inflammation, Conjunctivae nml, No scleral icterus Respiratory: positive: Chest non-tender, No respiratory distress, Breath sounds nml Cardiovascular: positive: Regular rate & rhythm Abdomen: positive: Nml bowel sounds, Other (Ostomy pink and edematous. Numerous attempts made with Deja (ostomy nurse) and me to induce stool to come out into bag. Numerous digitalizations. Mineral oil enemas. Warm tap water enema all through colostomy with minimal result.) Skin: positive: Color nml Extremities: positive: Other (Still with profound LEFT hip pain.) Neurologic/Psychiatric: positive: Oriented x3 Impression/Plan - Problem List Problem List: D8 s/p sigmoidectomy, end colostomy, Hartmans and placement of drain for stercoral perforation The problem keeping this patient in the hospital is her hard stool that refuses to move. The patient states that prior to being hospitalized she was taking stool softeners, fluids, fiber, and laxatives with minimal to no resolved. Of course she was on opiate pain medication for her left hip. As it stands Deja and I spent over an hour trying to get stool to come out of her ostomy. We tried mineral oil enemas, digitalization of the ostomy, placement of an enema tube guided by my finger with placement of warm tap water with minimal to no results. Additionally had the patient started drinking Suprep. If none of this works I am going to recommend a fluoroscopic guided placement of a colonic tube and placement of Gastrografin. In all honesty this will be mostly therapeutic but we will have exhausted all other avenues. Once the patient's colon is open and functional then she will be fed a general diet and she can go home. I do not have any concerns for infection at this point in time. The drain will be removed prior to discharge. I explained all of this to the patient and her and they vocalized an understanding. The patient repeatedly asked whether not she could re-perforate and I explained to her that yes she could and that the risk is higher if we do not remove this extraordinarily hard stool from her colon. [employer] disclaimer: This document was created in part using voice recognition technology. Because of the inherent limitations of the system ([employer]'s [employer] Dictate user manual states that the licensee understands that speech recognition is a statistical process and that recognition errors are inherent in the process), occasional same sounding word substitutions and grammatical errors do occur and persist despite proofreading. Please read this document for context.
[2018-01-02] MEDS: POTASSIUM CHLORIDE INJ 20 MEQ in DEXTROSE 5%-0.9% NACL 1,000 ML IV SCH (12:23)
[2018-01-02] MEDS: CELECOXIB 100 MG CAPSULE PO SCH (13:33)
[2018-01-02] MEDS: DOCUSATE SODIUM 250 MG CAPSULE PO SCH (13:33)
[2018-01-02] MEDS: SODIUM CHLORIDE FLUSH 0.9% 10 ML SYRINGE IVP SCH ×2 (13:34→22:52)
[2018-01-02] MEDS: SODIUM/POTASSIUM/MAG SULFATES 354 ML PREP KIT PO SCH ×3 (16:39→22:49)
[2018-01-02] MEDS ORDERED: ZINC OXIDE 20% OINT 28.35 GM TUBE TOP PRN (22:47)
[2018-01-02] MEDS ORDERED: MIN OIL/DIMETHICON/COCONUT OIL 92 GM TUBE TOP PRN (22:47)
[2018-01-03] MEDS: CEFEPIME 1 GM in SODIUM CHLORIDE 0.9% MINIBAG 100 ML IV SCH ×2 (01:10→13:04)
[2018-01-03] MEDS: metroNIDAZOLE 500 MG/100 ML 500 MG/100 ML BAG IV SCH ×3 (02:24→18:07)
[2018-01-03] MEDS: SODIUM CHLORIDE FLUSH 0.9% 10 ML SYRINGE IVP SCH ×3 (02:30→22:12)
[2018-01-03 09:00] LABS: ALBUMIN 2.7 g/dL (3.2-5.5); ALBUMIN/GLOBULIN RATIO 1.1 (1.0-2.2); BILIRUBIN,TOTAL 0.7 mg/dL (0.2-1.0); CALCIUM 7.6 mg/dL (8.5-10.3); CREATININE 0.4 mg/dL (0.4-1.0); TOTAL PROTEIN 5.1 g/dL (6.7-8.2)
--- NOTE | 2018-01-03 09:13 | PROVIDER PROGRESS NOTE ---
Subjective - General Admit Date: 12/25/17 Procedure Date: 12/25/17 Post Op Days: 9 Procedure Performed: Sigmoidectomy, end colostomy, Hartmans, abdominal washout, 19 Fr drain - Review of Systems Wound/Incisions: positive: Healing well General: positive: Other (Called by RN stating that patient's HR was inthe 30' s. BP normal and patient otherwise assymptomatic. Patient recieved Suprep last pm. No documentation of ostomy output by per RN multiple "blowouts". Patient just urinated 350 cc; overnight UOP not documented. She complains of feeling horrible but denies SOB, chest pain and is mentally intact.) HEENT: positive: No symptoms Pulmonary: positive: No symptoms Cardiovascular: positive: No symptoms Gastrointestinal: positive: Nausea (Occasional.), Other Genitourinary: positive: Other Musculoskeletal: positive: Other (Hip pain.) Skin: positive: No symptoms Psychiatric: positive: No symptoms. negative: Confusion Objective - Patient Data Reviewed Vital Signs: Yes Vital Signs: Vital Signs x48h Temp Pulse Pulse Resp BP Pulse Ox 01/03/18 08:21 38 L 01/03/18 08:20 36.7 C 36 L 18 144/55 H 96 01/03/18 06:00 36.4 C L 60 20 135/57 H 95 Intake & Output: Intake and Output Totals x24h 01/01/18 01/02/18 01/03/18 23:59 23:59 23:59 Intake Total 2843 1810 230 Output Total 2990 3010 750 Balance -147 1200 -520 - Lab Results Lab Results: 12/29/17 04:12 01/03/18 08:37 Other Lab Results: Lab Results x24hrs 01/03/18 01/03/18 Range/Units 08:37 08:37 Sodium 134 L (135-145) mmol/L Potassium 2.6 L (3.5-5.0) mmol/L Chloride 94 L (101-111) mmol/L Carbon Dioxide 28 (21-32) mmol/L Anion Gap 12.0 (6-13) BUN 5 L (6-20) mg/dL Creatinine 0.4 (0.4-1.0) mg/dL Estimated GFR (MDRD) 156 (>89) Glucose 119 H (70-100) mg/dL Calcium 7.6 L (8.5-10.3) mg/dL Total Bilirubin 0.7 (0.2-1.0) mg/dL AST 24 (10-42) IU/L ALT 27 (10-60) IU/L Alkaline Phosphatase 59 (42-121) IU/L Troponin I < 0.04 (<0.49) ng/mL Total Protein 5.1 L (6.7-8.2) g/dL Albumin 2.7 L (3.2-5.5) g/dL Globulin 2.4 (2.1-4.2) g/dL Albumin/Globulin Ratio 1.1 (1.0-2.2) - Current Medications Current Medications: Current Medications Generic Name Dose Route Start Last Admin Trade Name Freq PRN Reason Stop Dose Admin Carboxymethylcellulose 1 drops 12/31/17 07:00 01/01/18 14:31 Refresh 1% Ophth Drops EACHEYE 1 drops PRN PRN Administration Dry Eye Celecoxib 200 mg 12/26/17 10:00 01/02/18 13:33 Celebrex PO Not Given DAILY ELIZA Docusate Sodium 250 mg 12/30/17 15:00 01/02/18 13:33 Colace 250mg Capsule PO Not Given DAILY ELIZA Hydromorphone HCl 10 mg 12/26/17 16:54 12/26/17 18:09 Dilaudid Master Brewer (Use Master Brewer Order Set) IV 10 mg PRN PRN Administration PAIN Protocol Cefepime HCl 1 gm/ Sodium 100 mls @ 200 mls/hr 12/26/17 13:00 01/03/18 01:58 Chloride IV Infused Q12H ELIZA Infusion Metronidazole 500 mg in 100 mls @ 100 mls/hr 12/26/17 10:00 01/03/18 04:34 Flagyl 500 Mg/100 Ml IV Infused Q8H ELIZA Infusion Potassium Chloride 20 meq/ 1,010 mls @ 50 mls/hr 12/31/17 13:28 01/02/18 12: 23 Dextrose/Sodium Chloride IV 50 mls/hr .[id number] ELIZA Administration Ketorolac Tromethamine 15 mg 12/29/17 17:16 12/31/17 22:18 Toradol Inj IVP 01/03/18 17:15 15 mg Q6HR PRN Administration PAIN Levothyroxine Sodium 125 mcg 12/26/17 07:00 01/02/18 13:33 Synthroid PO Not Given QDAC ELIZA Morphine Sulfate 2 mg 12/26/17 09:19 12/26/17 14:58 Morphine (Carpuject) IVP 2 mg Q30M PRN Administration Abdominal Pain Ondansetron HCl 4 mg 12/25/17 22:26 01/01/18 09:01 Zofran Inj IVP 4 mg Q4HR PRN Administration Nausea / Vomiting Sodium Chloride 10 ml 12/25/17 22:00 01/03/18 02:30 Normal Saline Flush 0.9% IVP Not Given Q8HR ELIZA Sodium Chloride 10 ml 12/25/17 21:40 01/02/18 05:58 Normal Saline Flush 0.9% IVP 10 ml PRN PRN Administration NEEDED PER PROVIDER ORDERS - Physical Exam Wound/Incisions: positive: Dressing dry and intact General Appearance: positive: No acute distress, Other (Does not appear anxious. ) Respiratory: positive: No respiratory distress Cardiovascular: positive: Other (regular with HR of 70) Abdomen: positive: Other (non-tender to light palpation, non-distended. Stoma with loose but solid stool.) Extremities: positive: Pedal edema Neurologic/Psychiatric: positive: Oriented x3 Impression/Plan - Problem List Problem List: s/p diverting colostomy for perforated colon POD 9 with new onset bradycardia - Etiology unclear but could be electrolyte imbalance, fluid overload vs dehydration, new onset atrial fibrillation, heart block, CA, PE - Obtain troponins, CMP, EKG - Place patient on continuous tele monitoring - Will require close monitoring of input and output to determine fluid status. May require martin if bradycardia persists - Medicine consultation requested - Will follow results of above to further dictate care.
--- NOTE | 2018-01-03 09:36 | XRAY Report ---
FRONTAL CHEST: 01/02/2018 CLINICAL INDICATION: Severe bradycardia. FINDINGS: Frontal view of the chest is compared to previous film of 07/12/2016. The cardiac silhouette is within normal limits. Trace left pleural effusion is present. No new consolidation or pneumothorax. IMPRESSION: TRACE LEFT PLEURAL EFFUSION. TD: 01/03/2018 09:36
[2018-01-03] MEDS: DOCUSATE SODIUM 250 MG CAPSULE PO SCH (10:53)
[2018-01-03] MEDS: LEVOTHYROXINE 125 MCG TABLET PO SCH (10:53)
[2018-01-03] MEDS: CELECOXIB 100 MG CAPSULE PO SCH (10:53)
--- NOTE | 2018-01-03 11:17 | CONSULTATION NOTE ---
Referring Provider Name of Referring Provider:: Rudy Oropeza MD Consult Date: 01/03/18 Chief Complaint - Chief Complaint Chief Complaint: sudden bradycardia History of Present Illness - Admitted From Admitted From:: ER - History Obtained From Records Reviewed: [facility] History obtained from: Patient, RN at bedside, , Dr. Oropeza Exam Limitations: none - History of Present Illness HPI Comment/Other: Ms. Fabian a 77-year-old white female who was taken to the operating room on December 25 for exploratory laparotomy, sigmoidectomy with end colostomy and Lovett's. She also had an abdominal washout and placement of a 19 [place] Popeye drain. The patient is controlling severe pain from osteonecrosis of the hip with opioids. There is been resultant reduction in bowel function with severe constipation. She ended up a 5 cm perforated bowel from hard stool and the subsequent surgery. Postoperatively it has been slow going from her hip pain , abd wound pain, nausea. She is not tolerating clear liquids. Dr. Oropeza has been trying different techniques to remove the stool that remains and continues to impede her bowels to move. She is miserable with her nausea. Abdominal distention. She is exhausted with just trying to clear her bowels. And is refusing physical therapy today. 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 This is been ongoing for decades. She was even evaluated for this in the past by her primary care provider and nothing was found with an echocardiogram or stress test. This morning, during vitals being taken, the patient was noted to have a pulse in the 30s. Systolic was in the 140s. The patient herself continues to feel exhausted, worn out but denies any chest pain, shortness of breath. She is no more exhausted today than she was 2 days ago. There is no fever. No change in abdominal exam. Hospitalist service is being asked to consult on the bradycardia. History - Past Medical History Cardiovascular: reports: High cholesterol, Murmur (from ASD with repair in the past) Respiratory: reports: None Neuro: reports: CVA Endocrine/Autoimmune: reports: HyPOthyroidism : reports: None HEENT: reports: Other Musculoskeletal: reports: Osteoarthritis, Chronic back pain, Other ( osteonecrosis of the hip) Derm: reports: Other MRSA Hx?: No - Past Surgical History Ortho: reports: Other HEENT: reports: Tonsil/Adenoidectomy Derm: reports: Skin cancer surgery - Family & Social History Living Situation: With spouse/s.o., With family - Substance History Use: Uses substance without health or social issues: NONE - POLST Patient has POLST: No POLST Status: Full Code Meds/Allgy - Home Medications Home Medications: Ambulatory Orders Medication Instructions Recorded Confirmed Clopidogrel [Plavix] 75 mg PO DAILY 04/06/14 12/25/17 Levothyroxine Sodium [Synthroid] 125 mcg PO DAILY 04/06/14 12/25/17 Celecoxib [Celebrex] 200 mg PO BID 06/08/16 12/26/17 Bisacodyl [Dulcolax] 10 mg PO DAILY 12/25/17 12/25/17 Senna [Senokot] 8.6 mg PO BID 12/25/17 12/26/17 Acetaminophen [Tylenol Extra 1,000 mg PO BID PRN 12/26/17 12/26/17 Strength] Ascorbic Acid [Vitamin C] 500 mg PO DAILY 12/26/17 12/26/17 Calcium Carbonate [Tums (Calcium 500 mg PO BID 12/26/17 12/26/17 Carbonate 500mg)] Cholecalciferol (Vitamin D3) 1,000 unit PO DAILY 12/26/17 12/26/17 [Vitamin D3] Docusate Sodium 250Mg Capsule 250 mg PO BID 12/26/17 12/26/17 [Colace 250Mg Capsule] Glucosamine Sulfate 500 mg PO DAILY 12/26/17 12/26/17 Hydrocodone/Acetaminophen 1 each PO Q4H PRN 12/26/17 12/26/17 [Hydrocodon-Acetaminophn 10-325] Multivitamin [Theragran] 1 each PO DAILY 12/26/17 12/26/17 [place]-3/Dha/Epa/Fish Oil [Fish Oil 1,000 mg PO BID 12/26/17 12/26/17 1,000 mg Softgel] Turmeric/Turmeric Root Extract 1 each PO DAILY 12/26/17 12/26/17 [Turmeric 500 mg Capsule] Vitamin B Complex 1 each PO DAILY 12/26/17 12/26/17 - Allergies Allergies/Adverse Reactions: Allergies Allergy/AdvReac Type Severity Reaction Status Date / Time meloxicam Allergy Intermediate Hives Verified 12/25/17 11:42 Penicillins Allergy Intermediate Hives Verified 12/25/17 11:42 Sulfa (Sulfonamide Allergy Intermediate Hives Verified 12/25/17 11:42 Antibiotics) Exam - Vital Signs Reviewed Vital Signs: Yes Vital Signs: Vital Signs x48h Temp Pulse Pulse Resp BP Pulse Ox 01/03/18 08:21 38 L 01/03/18 08:20 36.7 C 36 L 18 144/55 H 96 01/03/18 06:00 36.4 C L 60 20 135/57 H 95 - Physical Exam General Appearance: positive: No acute distress, Alert, Other (pale, fatigued, elderly white female who is so tired she can barely speak. voice is almost a whisper. she lays flat, no energy to lift her head or to roll over.) Eyes Bilateral: positive: PERRL, EOMI ENT: positive: Dry mucous membranes Neck: positive: No JVD. negative: Stiff neck, Carotid bruit Respiratory: positive: Chest non-tender. negative: Wheezes, Rales, Rhonchi Cardiovascular: positive: Regular rate & rhythm, Systolic murmur. negative: Gallop/S4, Friction rub Peripheral Pulses: positive: 1+ Abdomen: positive: No organomegaly, Tenderness (diffuse and not very painful), Abnml bowel sounds (hypoactive bowel sounds), Other (mild air distension, ostomy with no output except air. ostomy itself pink, intact.). negative: Guarding, Rebound Skin: positive: Dry, Pallor Extremities: positive: Other (hip w osteonecrosis not able to wt bear much. doesn't want to walk to bathroom and wants bedside commode) Neurologic/Psychiatric: positive: Oriented x3, CN's nml (2-12), Motor nml Conclusion/Plan - Diagnosis Diagnosis: Sinus bradycardia with PVCs in a bigeminy rhythm. Review of her old EKG from July 2017 shows sinus rhythm with PACs. When I look at today's EKG she has sinus rhythm with PVCs. It is bigeminy. The sinus beats from today 's EKG are identical to the sinus beats from July 2017. There may be 2 mechanisms of the sinus bradycardia. The first of which is an aggressive bowel program that is causing her to have cramps, urge to defecate through the ostomy , and a vagal phenomena. When her vitals were taken this morning, she had no symptoms with this "heart rate of 30". I think that the monitor and the nurses manual pulse taking was picking up the sinus beat, but not picking up the PVC. The pressure was not being transmitted in the monitor or the nurse for picking up the PVC beat. So even thought her EKG shows sinus with bigeminy in the 70's, the RN and monitor were picking up a rate in the 30s. Her CMP is normal. Troponin normal. Chest x-ray normal. And while her exam is not normal because of postoperative findings, it is not nefarious for any type of cardiac event or arrhythmia. The patient and her are reassured. Case was discussed with Dr. Oropeza. I would recommend and ECHO to look at her ASD anatomy. I will also review her previous work up for palpitations done by her PCP in the outpatient setting. She - Lab Results Lab results reviewed: Yes Fish Bones: 12/29/17 04:12 01/03/18 08:37 Other Lab Results: troponin is < 0.04 - Diagnostic Imaging Results Diagnostic Imaging Results: positive: See rad report (CXR with trace left pleural effusion, no infiltrate.) - EKG Results EKG Interpreted Independently: Yes EKG Comparison: Changed from prior EKG (She has NSR with new ventricular bigeminy)
[2018-01-03] MEDS: POTASSIUM CHLOR 10 MEQ/100 ML 10 MEQ/100 ML BAG IV SCH ×4 (13:04→20:34)
[2018-01-03] MEDS: POTASSIUM CHLORIDE INJ 20 MEQ in DEXTROSE 5%-0.9% NACL 1,000 ML IV SCH (13:04)
--- NOTE | 2018-01-03 13:46 | XRAY Report ---
SINGLE CONTRAST GASTROGRAFIN ENEMA: 01/03/2018 CLINICAL INDICATION: Fecal impaction. FINDINGS: Initial environmental health specialist view of the abdomen demonstrates no small bowel dilatation. Stool is again seen in the colon. A Yousif catheter was inserted into the patient's left lower quadrant ostomy, and dilute Gastrografin was administered, opacifying the descending, transverse, and ascending colon to the cecum. Stool is noted within the lumen. No fixed stricturing is appreciated. No definite constricting mass is identified. IMPRESSION: NO EVIDENCE OF FIXED STRICTURING OR CONSTRICTING MASS LESION ON SINGLE CONTRAST DILUTE GASTROGRAFIN ENEMA. FLUOROSCOPY TIME: 2 MINUTES 30 SECONDS; 11 SPOT IMAGES OBTAINED. TD: 01/03/2018 13:45 MAYRA
[2018-01-03] MEDS: METOPROLOL 5 MG/5 ML VIAL IVP SCH ×2 (13:59→21:41)
[2018-01-03] MEDS ORDERED: MAGNESIUM SULFATE 2 GRAM 2 GM/50 ML BAG IV SCH (14:00)
[2018-01-03 18:31] LABS: MAGNESIUM 2.3 mg/dL (1.7-2.8)
[2018-01-03] MEDS ORDERED: POTASSIUM CHLOR 10 MEQ/100 ML 10 MEQ/100 ML BAG IV ONE ×2 (19:15→19:16)
[2018-01-03] MEDS: D5NS W/20 MEQ KCL 1,000 ML IV SCH (22:13)
--- NOTE | 2018-01-03 23:58 | PROVIDER PROGRESS NOTE ---
Subjective - General Admit Date: 12/25/17 Procedure Date: 12/25/17 Post Op Days: 9 Procedure Performed: Sigmoidectomy, end colostomy, Hartmans, abdominal washout, 19 Fr drain - Review of Systems Wound/Incisions: positive: Dressing dry and intact Drain Type: 19 Fr Popeye Drain Output Description: Serous Approximate mls Output: 110 General: positive: Other (Patient improved this evening. Bradycardia was just bigeminy that was only being counted for 1/2 the heartbeats. Patient had previous episodes in 2017. Runs of Vtach are being treated with beta blockers and correction of electrolytes. No MO. Patient asymptomatic throughout.) HEENT: positive: No symptoms Pulmonary: positive: No symptoms Cardiovascular: positive: No symptoms Gastrointestinal: positive: Nausea (Occasional.), Other Genitourinary: positive: Other Musculoskeletal: positive: Other (Hip pain.) Skin: positive: No symptoms Psychiatric: positive: No symptoms. negative: Confusion Objective - Patient Data Reviewed Vital Signs: Yes Vital Signs: Vital Signs x48h Temp Pulse Pulse Resp BP Pulse Ox 01/03/18 20:25 37.3 C 75 20 122/57 L 94 01/03/18 16:11 36.6 C 70 18 108/50 L 94 01/03/18 15:59 100 108/50 L Intake & Output: Intake and Output Totals x24h 01/01/18 01/02/18 01/03/18 23:59 23:59 23:59 Intake Total 2843 1810 2196.667 Output Total 2990 3010 2360 Balance -147 -1200 -163.333 - Lab Results Lab Results: 12/29/17 04:12 01/03/18 18:17 Other Lab Results: Lab Results x24hrs 01/03/18 01/03/18 01/03/18 Range/Units 18:17 08:37 08:37 Sodium 134 L (135-145) mmol/L Potassium 3.0 L 2.6 L (3.5-5.0) mmol/L Chloride 94 L (101-111) mmol/L Carbon Dioxide 28 (21-32) mmol/L Anion Gap 12.0 (6-13) BUN 5 L (6-20) mg/dL Creatinine 0.4 (0.4-1.0) mg/dL Estimated GFR (MDRD) 156 (>89) Glucose 119 H (70-100) mg/dL Calcium 7.6 L (8.5-10.3) mg/dL Magnesium 2.3 (1.7-2.8) mg/dL Total Bilirubin 0.7 (0.2-1.0) mg/dL AST 24 (10-42) IU/L ALT 27 (10-60) IU/L Alkaline Phosphatase 59 (42-121) IU/L Troponin I < 0.04 (<0.49) ng/mL Total Protein 5.1 L (6.7-8.2) g/dL Albumin 2.7 L (3.2-5.5) g/dL Globulin 2.4 (2.1-4.2) g/dL Albumin/Globulin Ratio 1.1 (1.0-2.2) - Current Medications Current Medications: Current Medications Generic Name Dose Route Start Last Admin Trade Name Freq PRN Reason Stop Dose Admin Carboxymethylcellulose 1 drops 12/31/17 07:00 01/01/18 14:31 Refresh 1% Ophth Drops EACHEYE 1 drops PRN PRN Administration Dry Eye Celecoxib 200 mg 12/26/17 10:00 01/03/18 10:53 Celebrex PO Not Given DAILY ELIZA Docusate Sodium 250 mg 12/30/17 15:00 01/03/18 10:53 Colace 250mg Capsule PO Not Given DAILY ELIZA Hydromorphone HCl 10 mg 12/26/17 16:54 12/26/17 18:09 Dilaudid Senior Cobol Developer (Use Senior Cobol Developer Order Set) IV 10 mg PRN PRN Administration PAIN Protocol Cefepime HCl 1 gm/ Sodium 100 mls @ 200 mls/hr 12/26/17 13:00 01/03/18 14:46 Chloride IV Infused Q12H ELIZA Infusion Metronidazole 500 mg in 100 mls @ 100 mls/hr 12/26/17 10:00 01/03/18 22:12 Flagyl 500 Mg/100 Ml IV Infused Q8H ELIZA Infusion Potassium Chloride/Dextrose/Sod Cl 1,000 mls @ 50 mls/hr 01/03/18 22:00 01/03 22:13 IV Not Given .Q20H ELIZA Levothyroxine Sodium 125 mcg 12/26/17 07:00 01/03/18 10:53 Synthroid PO Not Given QDAC ELIZA Metoprolol Tartrate 2.5 mg 01/03/18 14:00 01/03/18 21:41 Lopressor Inj IVP Not Given Q6H ELIZA Morphine Sulfate 2 mg 12/26/17 09:19 12/26/17 14:58 Morphine (Carpuject) IVP 2 mg Q30M PRN Administration Abdominal Pain Ondansetron HCl 4 mg 12/25/17 22:26 01/01/18 09:01 Zofran Inj IVP 4 mg Q4HR PRN Administration Nausea / Vomiting Sodium Chloride 10 ml 12/25/17 22:00 01/03/18 22:12 Normal Saline Flush 0.9% IVP Not Given Q8HR ELIZA Sodium Chloride 10 ml 12/25/17 21:40 01/02/18 05:58 Normal Saline Flush 0.9% IVP 10 ml PRN PRN Administration NEEDED PER PROVIDER ORDERS - Physical Exam Wound/Incisions: positive: Healing well, Dressing dry and intact General Appearance: positive: No acute distress Eyes Bilateral: positive: No lid inflammation, Conjunctivae nml, No scleral icterus Neck: positive: Trachea midline Respiratory: positive: Chest non-tender, No respiratory distress, Breath sounds nml Cardiovascular: positive: Regular rate & rhythm Abdomen: positive: Non-tender, Other (Ostomy pink and productive of some stool after gastrograffin enema.) Skin: positive: Color nml Neurologic/Psychiatric: positive: Oriented x3 Impression/Plan - Problem List Problem List: D9 s/p sigmoidectomy, Hartmans, end colostomy, drain Notified of bradycardia but workup quickly revealed no MO and bigeminy which patient had previously - not new. Electrolytes being replaced. Will check labs in AM. Gastrograffin enema appreciated and somewhat effective. Will check in AM. General diet in AM. Appreciate Dr. Grace's, Dr. Dias's and Dr. Polo's help and input.
[2018-01-04] MEDS: METOPROLOL 5 MG/5 ML VIAL IVP SCH ×4 (00:41→20:23)
[2018-01-04] MEDS: CEFEPIME 1 GM in SODIUM CHLORIDE 0.9% MINIBAG 100 ML IV SCH ×2 (01:06→13:00)
[2018-01-04] MEDS: metroNIDAZOLE 500 MG/100 ML 500 MG/100 ML BAG IV SCH ×3 (02:14→17:54)
[2018-01-04 04:44] LABS: BASOPHILS % (AUTO) 0.2 %; EOSINOPHILS # (AUTO) 0.3 10^3/uL (0.0-0.7); EOSINOPHILS % (AUTO) 2.5 %; HGB - HEMOGLOBIN 10.6 g/dL (12.0-16.0); LYMPHOCYTES # (AUTO) 1.6 10^3/uL (1.5-3.5); LYMPHOCYTES % (AUTO) 13.2 %; MEAN CORPUSCULAR HEMOGLOBIN 31.5 pg (27.0-31.0); MEAN CORPUSCULAR HGB CONC 33.4 g/dL (32.0-36.0); MEAN CORPUSCULAR VOLUME 94.4 fL (81.0-99.0); MEAN PLATELET VOLUME 7.7 fL (7.9-10.8); MONOCYTES # (AUTO) 1.2 10^3/uL (0.0-1.0); MONOCYTES % (AUTO) 9.8 %; NEUTROPHILS % (AUTO) 74.3 %; PLT - PLATELET COUNT 322 10^3/uL (130-450); RED BLOOD COUNT 3.35 10^6/uL (4.20-5.40); RED CELL DISTRIBUTION WIDTH 14.7 % (12.0-15.0); WHITE BLOOD COUNT 12.2 x10^3/uL (4.8-10.8)
[2018-01-04 05:03] LABS: ALBUMIN 2.4 g/dL (3.2-5.5); ALBUMIN/GLOBULIN RATIO 1.1 (1.0-2.2); BILIRUBIN,TOTAL 0.5 mg/dL (0.2-1.0); CALCIUM 7.4 mg/dL (8.5-10.3); CREATININE 0.4 mg/dL (0.4-1.0); TOTAL PROTEIN 4.6 g/dL (6.7-8.2)
[2018-01-04] MEDS: LEVOTHYROXINE 125 MCG TABLET PO SCH (07:00)
[2018-01-04] MEDS: SODIUM CHLORIDE FLUSH 0.9% 10 ML SYRINGE IVP SCH ×3 (07:02→20:23)
[2018-01-04] MEDS: CELECOXIB 100 MG CAPSULE PO SCH (08:36)
[2018-01-04] MEDS: DOCUSATE SODIUM 250 MG CAPSULE PO SCH ×2 (08:37→20:23)
[2018-01-04] MEDS: POTASSIUM CHLOR 10 MEQ/100 ML 10 MEQ/100 ML BAG IV SCH ×5 (08:52→19:09)
--- NOTE | 2018-01-04 11:31 | PROVIDER PROGRESS NOTE ---
Subjective - Prog Note Date Prog Note Date: 01/04/18 Prog Note Time: 19:50 - Subjective Pt reports feeling: No change Subjective: she is frustrated she's not eating and diet is full liquids. stool still not moving much. pain in hip and pain in knee her left bicep area hurts, bruised there and K rider hurts in left hand. Current Medications - Current Medications Current Medications: Active Medications Carboxymethylcellulose (Refresh 1% Ophth Drops) 1 drops EACHEYE PRN PRN PRN Reason: Dry Eye Last Admin: 01/01/18 14:31 Dose: 1 drops Celecoxib (Celebrex) 200 mg PO DAILY [facility] Last Admin: 01/04/18 08:36 Dose: Not Given Docusate Sodium (Colace 250mg Capsule) 250 mg PO DAILY [facility] Last Admin: 01/04/18 08:37 Dose: Not Given Hydromorphone HCl (Dilaudid Manager Test (Use Manager Test Order Set)) 10 mg IV PRN PRN; Protocol PRN Reason: PAIN Last Admin: 12/26/17 18:09 Dose: 10 mg Cefepime HCl 1 gm/ Sodium (Chloride) 100 mls @ 200 mls/hr IV Q12H [facility] Last Infusion: 01/04/18 01:43 Dose: Infused Metronidazole (Flagyl 500 Mg/100 Ml) 500 mg in 100 mls @ 100 mls/hr IV Q8H [facility] Last Admin: 01/04/18 10:49 Dose: 100 mls/hr Potassium Chloride/Dextrose/Sod Cl () 1,000 mls @ 50 mls/hr IV .Q20H [facility] Last Admin: 01/03/18 22:13 Dose: Not Given Potassium Chloride (Potassium Chloride) 10 meq in 100 mls @ 100 mls/hr IV Q1H [facility] Stop: 01/04/18 13:59 Last Admin: 01/04/18 10:40 Dose: 100 mls/hr Levothyroxine Sodium (Synthroid) 125 mcg PO QDAC [facility] Last Admin: 01/04/18 07:00 Dose: Not Given Metoprolol Tartrate (Lopressor Inj) 2.5 mg IVP Q6H [facility] Last Admin: 01/04/18 08:35 Dose: 2.5 mg Mineral Oil (Cavilon) 1 applic TOP PRN PRN PRN Reason: Skin Care Morphine Sulfate (Morphine (Carpuject)) 2 mg IVP Q30M PRN PRN Reason: Abdominal Pain Last Admin: 12/26/17 14:58 Dose: 2 mg Multi-Ingredient Ointment (Zinc Oxide) 1 applic TOP PRN PRN PRN Reason: Skin Care Ondansetron HCl (Zofran Inj) 4 mg IVP Q4HR PRN PRN Reason: Nausea / Vomiting Last Admin: 01/01/18 09:01 Dose: 4 mg Sodium Chloride (Normal Saline Flush 0.9%) 10 ml IVP Q8HR ELIZA Last Admin: 01/04/18 07:02 Dose: Not Given Sodium Chloride (Normal Saline Flush 0.9%) 10 ml IVP PRN PRN PRN Reason: NEEDED PER PROVIDER ORDERS Last Admin: 01/02/18 05:58 Dose: 10 ml Clopidogrel [Plavix] 75 mg PO DAILY 04/06/14 Levothyroxine Sodium [Synthroid] 125 mcg PO DAILY 04/06/14 Celecoxib [Celebrex] 200 mg PO BID 06/08/16 Bisacodyl [Dulcolax] 10 mg PO DAILY 12/25/17 Senna [Senokot] 8.6 mg PO BID 12/25/17 Acetaminophen [Tylenol Extra Strength] 1,000 mg PO BID PRN 12/26/17 Ascorbic Acid [Vitamin C] 500 mg PO DAILY 12/26/17 Calcium Carbonate [Tums (Calcium Carbonate 500mg)] 500 mg PO BID 12/26/17 Cholecalciferol (Vitamin D3) [Vitamin D3] 1,000 unit PO DAILY 12/26/17 Docusate Sodium 250Mg Capsule [Colace 250Mg Capsule] 250 mg PO BID 12/26/17 Glucosamine Sulfate 500 mg PO DAILY 12/26/17 Hydrocodone/Acetaminophen [Hydrocodon-Acetaminophn 10-325] 1 each PO Q4H PRN Multivitamin [Theragran] 1 each PO DAILY 12/26/17 [place]-3/Dha/Epa/Fish Oil [Fish Oil 1,000 mg Softgel] 1,000 mg PO BID 12/26/17 Turmeric/Turmeric Root Extract [Turmeric 500 mg Capsule] 1 each PO DAILY Vitamin B Complex 1 each PO DAILY 12/26/17 Objective - Vital Signs/Intake & Output Reviewed Vital Signs: Yes Vital Signs: Vital Signs x48h Temp Pulse Pulse Resp BP BP Pulse Ox 01/04/18 08:35 140/93 H 01/04/18 07:30 36.6 C 75 16 140/93 H 95 01/04/18 04:34 36.5 C 67 16 132/53 H 94 Intake & Output: Intake & Output 01/01/18 01/02/18 01/03/18 01/04/18 23:59 23:59 23:59 23:59 Intake Total 2843 1810 2196.667 400.000 Output Total 2990 3010 2360 1745 Balance -147 -1200 -163.333 -1345.000 - Objective General Appearance: positive: Alert, Other (very thin pale white female looks older than stated age) Eyes Bilateral: positive: PERRL, EOMI Neck: positive: No JVD. negative: Lymphadenopathy (R), Lymphadenopathy (L), Stiff neck, Carotid bruit Respiratory: positive: Chest non-tender, Rales. negative: Wheezes, Rhonchi Cardiovascular: positive: Regular rate & rhythm, Systolic murmur. negative: Gallop/S4, Friction rub Abdomen: positive: Nml bowel sounds, No distention, Tenderness. negative: Guarding, Rebound Skin: positive: Warm, Dry Extremities: positive: Other (left knee cap ok. no effusions. not warm or pink in joing. popliteal fossa not full and passive ROM ok left arm over biceps bruised, not swollen but feels tight and achey inside) Neurologic/Psychiatric: positive: Oriented x3, CN's nml (2-12), Motor nml (but weak) - Lab Results Fish Bones: 01/04/18 04:10 01/04/18 04:10 Other Labs: Lab Results x24hrs 01/04/18 01/04/18 01/03/18 Range/Units 04:10 04:10 18:17 WBC 12.2 H (4.8-10.8) x10^3/uL RBC 3.35 L (4.20-5.40) 10^6/uL Hgb 10.6 L (12.0-16.0) g/dL Hct 31.6 L (37.0-47.0) % MCV 94.4 (81.0-99.0) fL MCH 31.5 H (27.0-31.0) pg MCHC 33.4 (32.0-36.0) g/dL RDW 14.7 (12.0-15.0) % Plt Count 322 (130-450) 10^3/uL MPV 7.7 L (7.9-10.8) fL Neut # 9.0 H (1.5-6.6) 10^3/uL Lymph # 1.6 (1.5-3.5) 10^3/uL [place] # 1.2 H (0.0-1.0) 10^3/uL Eos # 0.3 (0.0-0.7) 10^3/uL Baso # 0.0 (0.0-0.1) 10^3/uL Absolute Nucleated RBC 0.01 x10^3/uL Nucleated RBC % 0.0 /100WBC Sodium 135 (135-145) mmol/L Potassium 3.3 L 3.0 L (3.5-5.0) mmol/L Chloride 100 L (101-111) mmol/L Carbon Dioxide 28 (21-32) mmol/L Anion Gap 7.0 (6-13) BUN 5 L (6-20) mg/dL Creatinine 0.4 (0.4-1.0) mg/dL Estimated GFR (MDRD) 156 (>89) Glucose 116 H (70-100) mg/dL Calcium 7.4 L (8.5-10.3) mg/dL Magnesium 2.3 (1.7-2.8) mg/dL Total Bilirubin 0.5 (0.2-1.0) mg/dL AST 21 (10-42) IU/L ALT 22 (10-60) IU/L Alkaline Phosphatase 50 (42-121) IU/L Total Protein 4.6 L (6.7-8.2) g/dL Albumin 2.4 L (3.2-5.5) g/dL Globulin 2.2 (2.1-4.2) g/dL Albumin/Globulin Ratio 1.1 (1.0-2.2) Assessment/Plan - Problem List (1) Nonsustained ventricular tachycardia Impression: I tried to call Dr. Gutierrez last night at 17:30 but the director of in service education has no acess to records to couldn't help me . Jannette has had a workup in the last month for her PFO. So I spoke to Dr. Gutierrez this morning. JACKSON and Echo done bc of hx of PFO. Nml Echo and JACKSON with PFO but not significant. ETT in 2016 with nml perfusion and nml EF. Holter in August frequent PAC's no PVC's. So right now plan is: keep K+ above 3.5 Keep Mg above 2.0 continue metoprolol (2) Hypokalemia Impression: more IV riders ordered. (3) Bowel perforation Impression: POD #10 for sigmoid resection, ostomy and Lovett's post op problem is poor progress. on full liquids but nauseated, doesn't want to get up bc of hip pain. still FOS and had barium enema 2/7 with minimal results. Gen Surgery continues to work w her. She really hasn't had food in a while. ?TPN candidate. (4) Left anterior knee pain Impression: check film and inject joint if possib le. that's what she wants. (5) Left upper arm pain Impression: check venous doppler.
[2018-01-04] MEDS: PROCHLORPERAZINE 10 MG/2 ML VIAL IVP PRN ×2 (12:54→19:19)
[2018-01-04] MEDS: D5NS W/20 MEQ KCL 1,000 ML IV SCH (16:55)
--- NOTE | 2018-01-04 18:09 | PROVIDER PROGRESS NOTE ---
Subjective - General Admit Date: 12/25/17 Procedure Date: 12/25/17 Post Op Days: 10 Procedure Performed: Sigmoidectomy, end colostomy, Hartmans, abdominal washout, 19 Fr drain - Review of Systems Wound/Incisions: positive: Healing well, Dressing dry and intact Drain Type: 19 Fr Popeye Drain Output Description: Serous Approximate mls Output: 30 General: positive: Other (Feeling better - complaining more of LEFT hip and knee pain. Better production from ostomy but still a source of concern for patient.) HEENT: positive: No symptoms Pulmonary: positive: No symptoms Cardiovascular: positive: No symptoms Gastrointestinal: positive: Nausea (Occasional.) Genitourinary: positive: No symptoms Musculoskeletal: positive: Other (LEFT knee and hip pain.) Skin: positive: No symptoms Psychiatric: positive: No symptoms. negative: Confusion Objective - Patient Data Reviewed Vital Signs: Yes Vital Signs: Vital Signs x48h Temp Pulse Resp BP Pulse Ox 01/04/18 13:00 37.1 C 73 18 111/57 L 94 Intake & Output: Intake and Output Totals x24h 01/02/18 01/03/18 01/04/18 23:59 23:59 23:59 Intake Total 1810 2196.667 800.000 Output Total 3010 2360 2505 Balance -1200 -163.333 -1705.000 - Lab Results Lab Results: 01/04/18 04:10 01/04/18 04:10 Other Lab Results: Lab Results x24hrs 01/04/18 01/04/18 01/03/18 Range/Units 04:10 04:10 18:17 WBC 12.2 H (4.8-10.8) x10^3/uL RBC 3.35 L (4.20-5.40) 10^6/uL Hgb 10.6 L (12.0-16.0) g/dL Hct 31.6 L (37.0-47.0) % MCV 94.4 (81.0-99.0) fL MCH 31.5 H (27.0-31.0) pg MCHC 33.4 (32.0-36.0) g/dL RDW 14.7 (12.0-15.0) % Plt Count 322 (130-450) 10^3/uL MPV 7.7 L (7.9-10.8) fL Neut # 9.0 H (1.5-6.6) 10^3/uL Lymph # 1.6 (1.5-3.5) 10^3/uL [place] # 1.2 H (0.0-1.0) 10^3/uL Eos # 0.3 (0.0-0.7) 10^3/uL Baso # 0.0 (0.0-0.1) 10^3/uL Absolute Nucleated RBC 0.01 x10^3/uL Nucleated RBC % 0.0 /100WBC Sodium 135 (135-145) mmol/L Potassium 3.3 L 3.0 L (3.5-5.0) mmol/L Chloride 100 L (101-111) mmol/L Carbon Dioxide 28 (21-32) mmol/L Anion Gap 7.0 (6-13) BUN 5 L (6-20) mg/dL Creatinine 0.4 (0.4-1.0) mg/dL Estimated GFR (MDRD) 156 (>89) Glucose 116 H (70-100) mg/dL Calcium 7.4 L (8.5-10.3) mg/dL Magnesium 2.3 (1.7-2.8) mg/dL Total Bilirubin 0.5 (0.2-1.0) mg/dL AST 21 (10-42) IU/L ALT 22 (10-60) IU/L Alkaline Phosphatase 50 (42-121) IU/L Total Protein 4.6 L (6.7-8.2) g/dL Albumin 2.4 L (3.2-5.5) g/dL Globulin 2.2 (2.1-4.2) g/dL Albumin/Globulin Ratio 1.1 (1.0-2.2) - Current Medications Current Medications: Current Medications Generic Name Dose Route Start Last Admin Trade Name Freq PRN Reason Stop Dose Admin Carboxymethylcellulose 1 drops 12/31/17 07:00 01/01/18 14:31 Refresh 1% Ophth Drops EACHEYE 1 drops PRN PRN Administration Dry Eye Celecoxib 200 mg 12/26/17 10:00 01/04/18 08:36 Celebrex PO Not Given DAILY ELIZA Docusate Sodium 250 mg 12/30/17 15:00 01/04/18 08:37 Colace 250mg Capsule PO Not Given DAILY [facility] Hydromorphone HCl 10 mg 12/26/17 16:54 12/26/17 18:[address] Worker (Use Right Of Way Worker Order Set) IV 10 mg PRN PRN Administration PAIN Protocol Cefepime HCl 1 gm/ Sodium 100 mls @ 200 mls/hr 12/26/17 13:00 01/04/18 15:03 Chloride IV Infused Q12H [facility] Infusion Metronidazole 500 mg in 100 mls @ 100 mls/hr 12/26/17 10:00 01/04/18 17:54 Flagyl 500 Mg/100 Ml IV 100 mls/hr Q8H ELIZA Administration Potassium Chloride/Dextrose/Sod Cl 1,000 mls @ 50 mls/hr 01/03/18 22:00 01/04 16:55 IV 50 mls/hr .Q20H ELIZA Administration Levothyroxine Sodium 125 mcg 12/26/17 07:00 01/04/18 07:00 Synthroid PO Not Given QDAC [facility] Metoprolol Tartrate 2.5 mg 01/03/18 14:00 01/04/18 13:21 Lopressor Inj IVP Not Given Q6H [facility] Morphine Sulfate 2 mg 12/26/17 09:19 12/26/17 14:58 Morphine (Carpuject) IVP 2 mg Q30M PRN Administration Abdominal Pain Multi-Ingredient Ointment 1 applic 01/02/18 22:47 01/04/18 12:59 Zinc Oxide TOP 1 applic PRN PRN Administration Skin Care Ondansetron HCl 4 mg 12/25/17 22:26 01/01/18 09:01 Zofran Inj IVP 4 mg Q4HR PRN Administration Nausea / Vomiting Prochlorperazine Edisylate 10 mg 01/04/18 12:06 01/04/18 12:54 Compazine Inj IVP 10 mg Q4HR PRN Administration Nausea / Vomiting Sodium Chloride 10 ml 12/25/17 22:00 01/04/18 13:05 Normal Saline Flush 0.9% IVP 10 ml Q8HR ELIZA Administration Sodium Chloride 10 ml 12/25/17 21:40 01/02/18 05:58 Normal Saline Flush 0.9% IVP 10 ml PRN PRN Administration NEEDED PER PROVIDER ORDERS - Physical Exam Wound/Incisions: positive: Healing well, Dressing dry and intact General Appearance: positive: No acute distress Eyes Bilateral: positive: No lid inflammation, Conjunctivae nml, No scleral icterus Neck: positive: Trachea midline Respiratory: positive: Chest non-tender, No respiratory distress, Breath sounds nml Cardiovascular: positive: Regular rate & rhythm, Systolic murmur Abdomen: positive: Non-tender, Other (Markedly improved bowel sounds.) Skin: positive: Color nml Extremities: positive: Nml appearance Neurologic/Psychiatric: positive: Oriented x3 Impression/Plan - Problem List Problem List: D10 s/p Hartmanns, end colostomy, sigmoidectomy, drain placement and abdominal washout for stercoral perforation I spent over 60 minutes with the patient and the family reviewing her hospitalization and the progress that she has made so far. Reviewed the original CT scan, abdominal x-rays and gastrograffin enema with the , son and patient. Showed her progress. Mobilizing the patient is problematic but has been working slowly. Will switch to oral meds especially potassium. Her H&H and WBC have elevated and I think this is due to dehydration. No fever to suggest infection. Pull drain in AM. Antibiotics due to stop. Encouraged general diet and stool softeners to the point where it is almost diarrheal in nature. Dragon disclaimer: This document was created in part using voice recognition technology. Because of the inherent limitations of the system ([employer]'s [employer] user manual states that the licensee understands that speech recognition is a statistical process and that recognition errors are inherent in the process), occasional same sounding word substitutions and grammatical errors do occur and persist despite proofreading. Please read this document for context.
[2018-01-04] MEDS ORDERED: SODIUM CHLORIDE 0.9% 500 ML IV ONE (18:23)
--- NOTE | 2018-01-04 18:25 | Ultrasound Report ---
EXAM: RIGHT UPPER EXTREMITY VENOUS ULTRASOUND EXAM DATE: 01/04/2018 05:22 PM. CLINICAL HISTORY: Deep right arm pain in residential IV pt. COMPARISON: None. TECHNIQUE: Real-time sonographic vascular imaging was performed by the shank turner through the upper extremity utilizing both color-flow and Doppler spectral analysis. Multiple quality audit representative static david ges were saved for review. FINDINGS: Internal Jugular Vein (IJV): Normal. Subclavian Vein (SCV): Normal. Axillary Vein : Normal. Cephalic Vein (superficial vein): Nonocclusive thrombus. Basilic Vein (superficial vein): Normal. Brachial Vein: Normal. Contralateral Side: Subclavian Vein: Normal. Other: None. IMPRESSION: 1. No evidence for deep vein thrombosis. 2. Nonocclusive superficial vein thrombus in the right cephalic vein. [facility] Referring Provider Line: [phone] SITE ID: [id number]
[2018-01-04] MEDS: OMEGA-3 ACID ETHYL ESTERS 1 GM CAPSULE PO SCH (20:22)
[2018-01-04] MEDS: SENNA 8.6 MG TABLET PO SCH (20:22)
--- NOTE | 2018-01-04 22:22 | XRAY Report ---
EXAM: LEFT KNEE RADIOGRAPHY EXAM DATE: 01/04/2018 09:53 PM. CLINICAL HISTORY: Pain in knee cap and lateral knee. COMPARISON: None. TECHNIQUE: 2 views. FINDINGS: Bones: Normal. No fractures or bone lesions. Joints: Normal. No effusion. No subluxations. Soft Tissues: Normal. No soft tissue swelling. IMPRESSION: Normal knee radiography. [facility] Referring Provider Line: [phone] SITE ID: [id number]
[2018-01-05] MEDS: CEFEPIME 1 GM in SODIUM CHLORIDE 0.9% MINIBAG 100 ML IV SCH (00:44)
[2018-01-05] MEDS: metroNIDAZOLE 500 MG/100 ML 500 MG/100 ML BAG IV SCH (02:02)
[2018-01-05] MEDS: PROCHLORPERAZINE 5 MG TABLET PO PRN ×3 (02:08→18:18)
[2018-01-05] MEDS: METOPROLOL 5 MG/5 ML VIAL IVP SCH (02:11)
[2018-01-05 04:44] LABS: BASOPHILS % (AUTO) 0.3 %; EOSINOPHILS # (AUTO) 0.2 10^3/uL (0.0-0.7); EOSINOPHILS % (AUTO) 1.8 %; HGB - HEMOGLOBIN 10.8 g/dL (12.0-16.0); LYMPHOCYTES # (AUTO) 1.1 10^3/uL (1.5-3.5); LYMPHOCYTES % (AUTO) 9.4 %; MEAN CORPUSCULAR HEMOGLOBIN 30.5 pg (27.0-31.0); MEAN CORPUSCULAR HGB CONC 32.4 g/dL (32.0-36.0); MEAN CORPUSCULAR VOLUME 94.2 fL (81.0-99.0); MEAN PLATELET VOLUME 7.5 fL (7.9-10.8); MONOCYTES # (AUTO) 1.2 10^3/uL (0.0-1.0); MONOCYTES % (AUTO) 10.5 %; NEUTROPHILS # (AUTO) 8.9 10^3/uL (1.5-6.6); PLT - PLATELET COUNT 313 10^3/uL (130-450); RED BLOOD COUNT 3.54 10^6/uL (4.20-5.40); RED CELL DISTRIBUTION WIDTH 14.5 % (12.0-15.0); WHITE BLOOD COUNT 11.4 x10^3/uL (4.8-10.8)
[2018-01-05 05:16] LABS: ALBUMIN 2.6 g/dL (3.2-5.5); ALBUMIN/GLOBULIN RATIO 1.2 (1.0-2.2); BILIRUBIN,TOTAL 0.8 mg/dL (0.2-1.0); CALCIUM 7.6 mg/dL (8.5-10.3); CREATININE 0.5 mg/dL (0.4-1.0); TOTAL PROTEIN 4.7 g/dL (6.7-8.2)
[2018-01-05] MEDS: LEVOTHYROXINE 125 MCG TABLET PO SCH (06:50)
[2018-01-05] MEDS: SODIUM CHLORIDE FLUSH 0.9% 10 ML SYRINGE IVP SCH (06:50)
--- NOTE | 2018-01-05 07:35 | PROVIDER PROGRESS NOTE ---
Subjective - Prog Note Date Prog Note Date: 01/05/18 Prog Note Time: 07:34 - Subjective Subjective: she is satisfied with the radiology report on her knee. she now has decided it' s not bursitis but a ligament strain and doesn't want a knee injection denies cp sob the right arm doppler shows a cephalic vein clot. but her left forearm ow with bumps in the vein where the IV is. having BM's now. still has pain in that hip that needs surgery and she is speaking to Aliza Sands about what to do since she has to delay surgery. overnight she remained in NSR and only a fee PVC's. no more bigeminy and no more Vtach Current Medications - Current Medications Current Medications: Active Medications Ascorbic Acid (Vitamin C) 500 mg PO DAILY [facility] Bisacodyl (Dulcolax) 10 mg PO DAILY [facility] Carboxymethylcellulose (Refresh 1% Ophth Drops) 1 drops EACHEYE PRN PRN PRN Reason: Dry Eye Last Admin: 01/01/18 14:31 Dose: 1 drops Celecoxib (Celebrex) 200 mg PO DAILY [facility] Last Admin: 01/04/18 08:36 Dose: Not Given Cholecalciferol (Vitamin D3) 1,000 unit PO DAILY [facility] Clopidogrel Bisulfate (Plavix) 75 mg PO DAILY [facility] Docusate Sodium (Colace 250mg Capsule) 250 mg PO DAILY [facility] Last Admin: 01/04/18 08:37 Dose: Not Given Docusate Sodium (Colace 250mg Capsule) 250 mg PO BID [facility] Last Admin: 01/04/18 20:23 Dose: 250 mg Hydromorphone HCl (Dilaudid Steersman (Use Steersman Order Set)) 10 mg IV PRN PRN; Protocol PRN Reason: PAIN Last Admin: 12/26/17 18:09 Dose: 10 mg Cefepime HCl 1 gm/ Sodium (Chloride) 100 mls @ 200 mls/hr IV Q12H [facility] Last Infusion: 01/05/18 01:25 Dose: Infused Metronidazole (Flagyl 500 Mg/100 Ml) 500 mg in 100 mls @ 100 mls/hr IV Q8H [facility] Last Infusion: 01/05/18 03:03 Dose: Infused Potassium Chloride/Dextrose/Sod Cl () 1,000 mls @ 50 mls/hr IV .Q20H [facility] Last Infusion: 01/05/18 03:03 Dose: 50 mls/hr Levothyroxine Sodium (Synthroid) 125 mcg PO QDAC [facility] Last Admin: 01/05/18 06:50 Dose: 125 mcg Metoprolol Tartrate (Lopressor Inj) 2.5 mg IVP Q6H [facility] Last Admin: 01/05/18 02:11 Dose: Not Given Mineral Oil (Cavilon) 1 applic TOP PRN PRN PRN Reason: Skin Care Morphine Sulfate (Morphine (Carpuject)) 2 mg IVP Q30M PRN PRN Reason: Abdominal Pain Last Admin: 12/26/17 14:58 Dose: 2 mg Multi-Ingredient Ointment (Zinc Oxide) 1 applic TOP PRN PRN PRN Reason: Skin Care Last Admin: 01/04/18 12:59 Dose: 1 applic Multivitamins (Theragran) 1 tab PO DAILY [facility] Vuwun-2-Nequ Ethyl Esters (Lovaza) 1 gm PO BID [facility] Last Admin: 01/04/18 20:22 Dose: 1 gm Ondansetron HCl (Zofran Inj) 4 mg IVP Q4HR PRN PRN Reason: Nausea / Vomiting Last Admin: 01/01/18 09:01 Dose: 4 mg Turmeric 500 Mg (Capsule) 1 each PO DAILY [facility] Vitamin B Complex 1 each PO DAILY [facility] Potassium Chloride (K-Dur) 20 meq PO DAILYWM [facility] Potassium Chloride () 40 meq PO DAILYWM [facility] Prochlorperazine Edisylate (Compazine Inj) 10 mg IVP Q4HR PRN PRN Reason: Nausea / Vomiting Last Admin: 01/04/18 19:19 Dose: 10 mg Prochlorperazine Maleate (Compazine) 5 mg PO Q6HR PRN PRN Reason: Nausea / Vomiting Last Admin: 01/05/18 02:08 Dose: 5 mg Senna (Senokot) 8.6 mg PO BID [facility] Last Admin: 01/04/18 20:22 Dose: 8.6 mg Sodium Chloride (Normal Saline Flush 0.9%) 10 ml IVP Q8HR [facility] Last Admin: 01/05/18 06:50 Dose: Not Given Sodium Chloride (Normal Saline Flush 0.9%) 10 ml IVP PRN PRN PRN Reason: NEEDED PER PROVIDER ORDERS Last Admin: 01/02/18 05:58 Dose: 10 ml Clopidogrel [Plavix] 75 mg PO DAILY 04/06/14 Levothyroxine Sodium [Synthroid] 125 mcg PO DAILY 04/06/14 Celecoxib [Celebrex] 200 mg PO BID 06/08/16 Bisacodyl [Dulcolax] 10 mg PO DAILY 12/25/17 Senna [Senokot] 8.6 mg PO BID 12/25/17 Acetaminophen [Tylenol Extra Strength] 1,000 mg PO BID PRN 12/26/17 Ascorbic Acid [Vitamin C] 500 mg PO DAILY 12/26/17 Calcium Carbonate [Tums (Calcium Carbonate 500mg)] 500 mg PO BID 12/26/17 Cholecalciferol (Vitamin D3) [Vitamin D3] 1,000 unit PO DAILY 12/26/17 Docusate Sodium 250Mg Capsule [Colace 250Mg Capsule] 250 mg PO BID 12/26/17 Glucosamine Sulfate 500 mg PO DAILY 12/26/17 Hydrocodone/Acetaminophen [Hydrocodon-Acetaminophn 10-325] 1 each PO Q4H PRN Multivitamin [Theragran] 1 each PO DAILY 12/26/17 [place]-3/Dha/Epa/Fish Oil [Fish Oil 1,000 mg Softgel] 1,000 mg PO BID 12/26/17 Turmeric/Turmeric Root Extract [Turmeric 500 mg Capsule] 1 each PO DAILY Vitamin B Complex 1 each PO DAILY 12/26/17 Objective - Vital Signs/Intake & Output Reviewed Vital Signs: Yes Vital Signs: Vital Signs x48h Temp Pulse Pulse Resp BP BP Pulse Ox 01/05/18 04:54 36.6 C 65 16 134/68 H 95 01/05/18 02:11 129/52 L 01/05/18 00:50 36.4 C L 70 18 129/52 L 96 Intake & Output: Intake & Output 01/02/18 01/03/18 01/04/18 01/05/18 23:59 23:59 23:59 23:59 Intake Total 1810 2196.667 2200.000 621.666 Output Total 3010 2360 3925 250 Balance -1200 -163.333 -1725.000 371.666 - Objective General Appearance: positive: No acute distress, Alert, Other (stting up in chair, eating a regulr diet for breakfast but very nauseated) Eyes Bilateral: positive: PERRL ENT: positive: Pharynx nml Neck: positive: No JVD. negative: Lymphadenopathy (R), Lymphadenopathy (L), Carotid bruit Respiratory: positive: Chest non-tender. negative: Wheezes, Rales, Rhonchi Cardiovascular: positive: Regular rate & rhythm, Systolic murmur. negative: Gallop/S4, Friction rub Abdomen: positive: No organomegaly, Nml bowel sounds, No distention, Other ( ostomy pink. stool in bag.) Skin: positive: Warm, Dry, Pallor, Other (mild phlebitis at left forearm IV site.) Extremities: positive: Pedal edema (mild) Neurologic/Psychiatric: positive: Oriented x3, CN's nml (2-12), Motor nml - Lab Results Fish Bones: 01/05/18 04:20 01/05/18 04:20 Other Labs: Lab Results x24hrs 01/05/18 01/05/18 Range/Units 04:20 04:20 WBC 11.4 H (4.8-10.8) x10^3/uL RBC 3.54 L (4.20-5.40) 10^6/uL Hgb 10.8 L (12.0-16.0) g/dL Hct 33.3 L (37.0-47.0) % MCV 94.2 (81.0-99.0) fL MCH 30.5 (27.0-31.0) pg MCHC 32.4 (32.0-36.0) g/dL RDW 14.5 (12.0-15.0) % Plt Count 313 (130-450) 10^3/uL MPV 7.5 L (7.9-10.8) fL Neut # 8.9 H (1.5-6.6) 10^3/uL Lymph # 1.1 L (1.5-3.5) 10^3/uL [place] # 1.2 H (0.0-1.0) 10^3/uL Eos # 0.2 (0.0-0.7) 10^3/uL Baso # 0.0 (0.0-0.1) 10^3/uL Absolute Nucleated RBC 0.00 x10^3/uL Nucleated RBC % 0.0 /100WBC Sodium 133 L (135-145) mmol/L Potassium 3.4 L (3.5-5.0) mmol/L Chloride 102 (101-111) mmol/L Carbon Dioxide 25 (21-32) mmol/L Anion Gap 6.0 (6-13) BUN 7 (6-20) mg/dL Creatinine 0.5 (0.4-1.0) mg/dL Estimated GFR (MDRD) 120 (>89) Glucose 124 H (70-100) mg/dL Calcium 7.6 L (8.5-10.3) mg/dL Total Bilirubin 0.8 (0.2-1.0) mg/dL AST 18 (10-42) IU/L ALT 19 (10-60) IU/L Alkaline Phosphatase 57 (42-121) IU/L Total Protein 4.7 L (6.7-8.2) g/dL Albumin 2.6 L (3.2-5.5) g/dL Globulin 2.1 (2.1-4.2) g/dL Albumin/Globulin Ratio 1.2 (1.0-2.2) Assessment/Plan - Problem List (1) Nonsustained ventricular tachycardia Impression: Jannette has had a workup in the last month for her PFO. So I spoke to Dr. Gutierrez 01/04/18 JACKSON and Echo done bc of hx of PFO. Nml Echo and JACKSON with PFO but not significant. ETT in 2017 with nml perfusion and nml EF. Holter in August frequent PAC's no PVC's. She has gone from bigeminy, to Vtach runs, and finally now resolved with NSR and PVC's. K is almost 3.5 today. So right now plan is: keep K+ above 3.5 Keep Mg above 2.0 continue metoprolol and change to po (2) Hypokalemia Impression: changed to po K and IV stopped bc of phlebitis (3) Bowel perforation Impression: POD #11 for sigmoid resection, ostomy and Lovett's post op problem is poor progress. on full liquids but nauseated, doesn't want to get up bc of hip pain. still FOS and had barium enema 2 with minimal results. Gen Surgery continues to work w her. She really hasn't had food in a while. Started regular diet yesterday. Still w nausea. But anticipation is dc in am if tolerating her diet. (4) Left anterior knee pain Impression: film checked. results discussed w her and . now feels it's ligament strain. no injection. she will discuss with her own ortho. (5) Left upper arm pain Impression: checked venous doppler. but it was done of RIGHT arm that shows cephalic occlusion. It is superficial. Discussed with her and . No lovenox for now. Will stop IV in LEFT arm bc of phlebitis. Change all meds to po.
[2018-01-05] MEDS ORDERED: POTASSIUM CHLORIDE 20 MEQ TABLET PO SCH (08:00)
--- NOTE | 2018-01-05 10:43 | PROVIDER PROGRESS NOTE ---
Subjective - General Admit Date: 12/25/17 Procedure Date: 12/25/17 Post Op Days: 11 Procedure Performed: Sigmoidectomy, end colostomy, Hartmans, abdominal washout, 19 Fr drain - Review of Systems Wound/Incisions: positive: Healing well, Dressing dry and intact Drain Type: 19 Fr Popeye Drain Output Description: Serous Approximate mls Output: 20 General: positive: Other (Feeling better - markedly improved output from ostomy. ) HEENT: positive: No symptoms Pulmonary: positive: No symptoms Cardiovascular: positive: No symptoms Gastrointestinal: positive: No symptoms Genitourinary: positive: No symptoms Musculoskeletal: positive: Other (LEFT knee and hip pain.) Skin: positive: No symptoms Psychiatric: positive: No symptoms. negative: Confusion Objective - Patient Data Reviewed Vital Signs: Yes Vital Signs: Vital Signs x48h Temp Pulse Resp BP Pulse Ox 01/05/18 04:54 36.6 C 65 16 134/68 H 95 Intake & Output: Intake and Output Totals x24h 01/03/18 01/04/18 01/05/18 23:59 23:59 23:59 Intake Total 2196.667 2200.000 921.666 Output Total 2360 3925 520 Balance -163.333 -1725.000 401.666 - Lab Results Lab Results: 01/05/18 04:20 01/05/18 04:20 Other Lab Results: Lab Results x24hrs 01/05/18 01/05/18 Range/Units 04:20 04:20 WBC 11.4 H (4.8-10.8) x10^3/uL RBC 3.54 L (4.20-5.40) 10^6/uL Hgb 10.8 L (12.0-16.0) g/dL Hct 33.3 L (37.0-47.0) % MCV 94.2 (81.0-99.0) fL MCH 30.5 (27.0-31.0) pg MCHC 32.4 (32.0-36.0) g/dL RDW 14.5 (12.0-15.0) % Plt Count 313 (130-450) 10^3/uL MPV 7.5 L (7.9-10.8) fL Neut # 8.9 H (1.5-6.6) 10^3/uL Lymph # 1.1 L (1.5-3.5) 10^3/uL [place] # 1.2 H (0.0-1.0) 10^3/uL Eos # 0.2 (0.0-0.7) 10^3/uL Baso # 0.0 (0.0-0.1) 10^3/uL Absolute Nucleated RBC 0.00 x10^3/uL Nucleated RBC % 0.0 /100WBC Sodium 133 L (135-145) mmol/L Potassium 3.4 L (3.5-5.0) mmol/L Chloride 102 (101-111) mmol/L Carbon Dioxide 25 (21-32) mmol/L Anion Gap 6.0 (6-13) BUN 7 (6-20) mg/dL Creatinine 0.5 (0.4-1.0) mg/dL Estimated GFR (MDRD) 120 (>89) Glucose 124 H (70-100) mg/dL Calcium 7.6 L (8.5-10.3) mg/dL Total Bilirubin 0.8 (0.2-1.0) mg/dL AST 18 (10-42) IU/L ALT 19 (10-60) IU/L Alkaline Phosphatase 57 (42-121) IU/L Total Protein 4.7 L (6.7-8.2) g/dL Albumin 2.6 L (3.2-5.5) g/dL Globulin 2.1 (2.1-4.2) g/dL Albumin/Globulin Ratio 1.2 (1.0-2.2) - Current Medications Current Medications: Current Medications Generic Name Dose Route Start Last Admin Trade Name Freq PRN Reason Stop Dose Admin Carboxymethylcellulose 1 drops 12/31/17 07:00 01/01/18 14:31 Refresh 1% Ophth Drops EACHEYE 1 drops PRN PRN Administration Dry Eye Celecoxib 200 mg 12/26/17 10:00 01/04/18 08:36 Celebrex PO Not Given DAILY ELIZA Docusate Sodium 250 mg 12/30/17 15:00 01/04/18 08:37 Colace 250mg Capsule PO Not Given DAILY ELIZA Docusate Sodium 250 mg 01/04/18 21:00 01/04/18 20:23 Colace 250mg Capsule PO 250 mg BID ELIZA Administration Levothyroxine Sodium 125 mcg 12/26/17 07:00 01/05/18 06:50 Synthroid PO 125 mcg QDAC ELIZA Administration Multi-Ingredient Ointment 1 applic 01/02/18 22:47 01/04/18 12:59 Zinc Oxide TOP 1 applic PRN PRN Administration Skin Care [id number] Ethyl Esters 1 gm 01/04/18 21:00 01/04/18 20:22 Lovaza PO 1 gm BID ELIZA Administration Prochlorperazine Edisylate 10 mg 01/04/18 12:06 01/04/18 19:19 Compazine Inj IVP 10 mg Q4HR PRN Administration Nausea / Vomiting Prochlorperazine Maleate 5 mg 01/04/18 12:06 01/05/18 08:32 Compazine PO 5 mg Q6HR PRN Administration Nausea / Vomiting Senna 8.6 mg 01/04/18 21:00 01/04/18 20:22 Senokot PO 8.6 mg BID ELIZA Administration - Physical Exam Wound/Incisions: positive: Healing well General Appearance: positive: No acute distress (Up walking with walker to bathroom to urinate.) Eyes Bilateral: positive: No lid inflammation, Conjunctivae nml, No scleral icterus Neck: positive: Trachea midline Respiratory: positive: Chest non-tender, No respiratory distress, Breath sounds nml Cardiovascular: positive: Regular rate & rhythm, Systolic murmur Abdomen: positive: Non-tender, Other (Ostomy pink and productive.) Skin: positive: Color nml Extremities: positive: Non-tender, Nml appearance Neurologic/Psychiatric: positive: Oriented x3 Impression/Plan - Problem List Problem List: D11 s/p sigmoidectomy for stercoral perforation, end colostomy, Hartmans, abdominal washout, 19 Fr Popeye drain 1) FEN On general diet and doing well. Much improved output from ostomy. 2) DVT prophylaxis Continue TEDs and venadynes. Ambulating with walker well. 3) Pathology Disagree it was NOT diverticulitis but rather a stercoral perforation clinically (there is no way the pathologist could determine this as it is a clinical determination). 4) Pain Doing much better. 5) Activity Appreciate all the work that PT has done - impressive. 6) Drain Pulling it today. 7) ID Antibiotics stopped. No sign of infection. Will follow for 24 hours. 8) Teaching Ostomy teaching progressing well. Anticipate discharge in 24-48 hours if everything progresses well.
[2018-01-05] MEDS ORDERED: POTASSIUM CHLORIDE 20 MEQ/15 ML UDC PO SCH (12:00)
[2018-01-05] MEDS: ASCORBIC ACID CHEW 500 MG TABLET PO SCH (13:24)
[2018-01-05] MEDS: SENNA 8.6 MG TABLET PO SCH ×2 (13:25→20:32)
[2018-01-05] MEDS: CHOLECALCIFEROL 1,000 UNIT TABLET PO SCH (13:25)
[2018-01-05] MEDS: OMEGA-3 ACID ETHYL ESTERS 1 GM CAPSULE PO SCH ×2 (13:25→20:31)
[2018-01-05] MEDS: CELECOXIB 100 MG CAPSULE PO SCH ×2 (13:25→13:26)
[2018-01-05] MEDS: DOCUSATE SODIUM 250 MG CAPSULE PO SCH ×3 (13:26→20:31)
[2018-01-05] MEDS: BISACODYL 5 MG TABLET PO SCH (13:26)
[2018-01-05] MEDS: CLOPIDOGREL 75 MG TABLET PO SCH (13:26)
[2018-01-05] MEDS: MULTIVITAMIN TABLET PO SCH (13:26)
[2018-01-05] MEDS: METOPROLOL SUCCINATE 25 MG TABLET PO SCH (13:26)
[2018-01-05] MEDS: TURMERIC 500 MG PO SCH (13:27)
[2018-01-05] MEDS: POTASSIUM CHLORIDE 20 MEQ TABLET PO SCH (14:14)
[2018-01-05] MEDS: PROMETHAZINE 12.5 MG TABLET PO PRN (14:14)
[2018-01-05] MEDS ORDERED: traMADol 50 MG TABLET PO PRN (17:08)
[2018-01-06] MEDS: PROMETHAZINE 12.5 MG TABLET PO PRN (04:14)
[2018-01-06] MEDS: CARBOXYMETHYLCELLULOSE OPHTH DROPS EACHEYE PRN (04:14)
[2018-01-06] MEDS: LEVOTHYROXINE 125 MCG TABLET PO SCH (05:53)
[2018-01-06] MEDS: PROCHLORPERAZINE 5 MG TABLET PO PRN (05:57)
[2018-01-06 09:05] VITALS: BP 98/47
[2018-01-06] MEDS: ASCORBIC ACID CHEW 500 MG TABLET PO SCH (10:34)
[2018-01-06] MEDS: BISACODYL 5 MG TABLET PO SCH (10:35)
[2018-01-06] MEDS: POTASSIUM CHLORIDE 20 MEQ TABLET PO SCH (10:35)
[2018-01-06] MEDS: OMEGA-3 ACID ETHYL ESTERS 1 GM CAPSULE PO SCH (10:36)
[2018-01-06] MEDS: SENNA 8.6 MG TABLET PO SCH (10:36)
[2018-01-06] MEDS: CELECOXIB 100 MG CAPSULE PO SCH (10:36)
[2018-01-06] MEDS: CLOPIDOGREL 75 MG TABLET PO SCH (10:36)
[2018-01-06] MEDS: CHOLECALCIFEROL 1,000 UNIT TABLET PO SCH (10:37)
[2018-01-06] MEDS: MULTIVITAMIN TABLET PO SCH (10:37)
[2018-01-06] MEDS: DOCUSATE SODIUM 250 MG CAPSULE PO SCH (10:37)
[2018-01-06] MEDS: TURMERIC 500 MG PO SCH (10:52)
[2018-01-06] MEDS: METOPROLOL SUCCINATE 25 MG TABLET PO SCH (10:52)
--- NOTE | 2018-01-06 11:19 | Discharge Plan ---
Discharge Plan Disposition: 01 Home, Self Care Condition: Good Prescriptions: traMADol [Ultram] 50 mg PO Q4HR PRN #40 tablet PRN Reason: Pain Prochlorperazine [Compazine] 5 mg PO Q6HR PRN #20 tablet PRN Reason: Nausea / Vomiting Promethazine [Phenergan] 12.5 mg PO Q6HR PRN #20 tablet PRN Reason: Nausea / Vomiting Metoprolol Succinate [Toprol Xl] 25 mg PO DAILY #60 tablet Diet: Regular Activity Restrictions: Additional Comments (No lifting >15 pounds for 6 weeks. Use walker to get around as much as possible.) Shower Restrictions: No (Shower daily letting soap and water run through wound.) Driving Restrictions: Yes Assistance Devices: Wheelchair, Walker Weight Bearing: As tolerated. Additional Instructions or Follow Up instructions: You were brought in for a perforation of your sigmoid colon due to extremely hard stool (stercoral perforation likely due to opiate use and decreased mobility). This was treated with emergent surgery where the perforated sigmoid colon was removed, the distal colon stapled off and the proximal colon brought up to the skin as an end colostomy. A drain was placed in your pelvis. Your fascia was closed but your skin was left open due to the risk of infection. You were treated with 10 days of antibiotics and currently do not appear to have an infection. It was a challenge to get the remaining hard stool out of your colon but between oral prep, enemas through the colostomy and a gastrograffin enema you were able to move the stool appropriately. You are now being discharged from the hospital to go home with the aid of home health. A wheelchair and walker should accompany you due to the necrosis of your left femoral ball. From a general surgical standpoint an anastamosis can be considered as early as 4 months from now and if the patient desires she can consider prolapse surgery AND the anastamosis if she can find a surgeon or facility willing to do this. I do not do the prolapse surgery. You should call me with surgical questions or concerns. Medical questions should be directed to Dr. Sonam Yates. Questions regarding the metoprolol that was started during this hospitalization due to tachyarhythmia (fast heart rate) should be addressed by Dr. Yates. Wound care is wet to dry dressing changes twice a day and she should see me in 7 -10 days for her first postoperative check. Follow-Up Care: Home Health - RN (Wound care (wet to dry dressing changes) and ostomy care) No Smoking: If you smoke, Please STOP! Call for help. Follow-up with: SHANNAN YATES MD [Primary Care Provider] - Rudy Oropeza MD [Provider Admit Priv/Credential] -
--- NOTE | 2018-01-07 07:31 | DISCHARGE SUMMARY ---
Physician: Rudy Oropeza MD DATE OF ADMISSION: 12/25/2017 DATE OF DISCHARGE: 01/06/2018 DATE OF ADMISSION: 12/25/2017 DATE OF DISCHARGE: 01/06/2018 HOSPITAL COURSE: I was called urgently in consultation by Lior Cesar to evaluate this patient for free air and abdominal pain on 12/25/2017. The patient was evaluated in room 8 at [facility] Emergency Department and determined to have a perforation of her bowel. Consultation was performed and the patient was taken urgently to the operating room that day where a sigmoidectomy was performed and colostomy, Kanchan's procedure and drainage. A drain placed in her pelvis. In addition, there was an abdominal washout. The clinical diagnosis was a stercoral perforation of the colon and the sigmoid colon. The patient was taken to the medical/surgical unit following the operation where she was continued on antibiotics for 10 days. She had an episode of bigeminy as well as a 10-12 beat run of ventricular tachycardia on 01/03/2018 where Internal Medicine was consulted. Consult was performed by Dr. Kamini Polo for this and the patient was started on metoprolol. A longstanding problem while she was in the hospital was nausea. Every medication that we had in the hospital with the exception of Reglan was used. Reglan was not used due to the risk of tachyarrhythmia with her history of V-tach. She is now being discharged on the 12th postoperative day to home. Home Health is to follow up with her due to the fact that she has an open wound and the wound needs to be packed b.i.d. as well as an ostomy. 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 She is being discharged home with a walker and a wheelchair due to this. She is being discharged home on all her regular home medications with the exception of the opiate, which was discontinued due to the fact that it caused her stercoral perforation. Additional medications include Prochlorperazine as well as promethazine for her nausea. Metoprolol has also been prescribed 25 mg daily as well as Tramadol 50 mg p.o. every 4 hours as needed for pain. She has been instructed that she can bridge pain medication with nonsteroidal anti-inflammatory drugs as well as Tylenol. Her instructions include that she should take a daily shower letting soap and water run through the wound. She is not to drive. She is not to lift anything heavier than 15 pounds for a total of 6 weeks. She is to follow up with Dr. Sonam Yates in 7-14 days and the issue of whether or not the metoprolol should be continued or discontinued or whether or not a cardiac evaluation is in order will be addressed by Dr. Yates. Surgical issues will be addressed by me and she is set to see me in 7-10 days for her first postop visit. I have asked the patient as well as the family to contact me with surgical issues or concerns. They should contact Dr. Yates if there are any medical issues. TD: 01/07/2018 07:27
== END 2018-01-06 13:30 | disposition home or self-care (01) | DRG 330 ==
LOC: ED 11:30 → SDS 17:15 → ICU 21:40 → MS3 12-26 17:03
PROVIDERS: ADMIT Surgery; ATTEND Surgery
PROC: 0D1N0Z4 Bypass Sigmoid Colon to Cutaneous, Open Approach (ICD-10-PCS; 2017-12-25)
PROC: 0DBN0ZZ Excision of Sigmoid Colon, Open Approach (ICD-10-PCS; principal; 2017-12-25 19:30)
DX: K63.1 Perforation of intestine (nontraumatic) (principal); I47.2 Ventricular tachycardia; K59.00 Constipation, unspecified; M87.9 Osteonecrosis, unspecified; N39.0 Urinary tract infection, site not specified; T80.1XXA Vascular complications following infusion, transfusion and therapeutic injection, initial encounter; I82.611 Acute embolism and thrombosis of superficial veins of right upper extremity; Q21.1 Atrial septal defect; I49.3 Ventricular premature depolarization; E87.6 Hypokalemia; E86.0 Dehydration; K57.30 Diverticulosis of large intestine without perforation or abscess without bleeding; K59.03 Drug induced constipation; T40.2X5A Adverse effect of other opioids, initial encounter; F32.9 Major depressive disorder, single episode, unspecified; M25.562 Pain in left knee; I80.8 Phlebitis and thrombophlebitis of other sites; Y84.8 Other medical procedures as the cause of abnormal reaction of the patient, or of later complication, without mention of misadventure at the time of the procedure; Y92.230 Patient room in hospital as the place of occurrence of the external cause; E78.00 Pure hypercholesterolemia, unspecified; E03.9 Hypothyroidism, unspecified; G89.29 Other chronic pain; Z85.828 Personal history of other malignant neoplasm of skin; Z79.02 Long term (current) use of antithrombotics/antiplatelets; Z86.73 Personal history of transient ischemic attack (TIA), and cerebral infarction without residual deficits; Z88.0 Allergy status to penicillin
CPT/HCPCS: 36415; 71045; 74021; 74177; 74270; 80048; 80053; 81001; 81003; 83690; 83735; 84132; 84484; 85014; 85018; 85025; 87086; 87150; 93005; 96365; 96367; 96372; 96375; 96376; 99284; 99285

== ENCOUNTER 2018-01-18 14:21 | Outpatient (CLI) | payer MEDICARE, OTHER ==
[2018-01-18 17:15] LABS: BILIRUBIN,URINE NEGATIVE (NEGATIVE); GLUCOSE, URINE (UA) NEGATIVE (NEGATIVE); KETONES,URINE (UA) NEGATIVE (NEGATIVE); LEUKOCYTE ESTERASE, URINE SMALL (NEGATIVE); NITRITE,URINE NEGATIVE (NEGATIVE); OCCULT BLOOD,URINE TRACE-INTA (NEGATIVE); PROTEIN,URINE NEGATIVE (NEGATIVE); UROBILINOGEN,URINE 0.2 (NORMAL) E.U./dL (NORMAL)
[2018-01-18 17:16] LABS: CLARITY,URINE CLEAR (CLEAR)
[2018-01-18 18:10] LABS: BACTERIA,URINE Few /HPF (None Seen); RBC,URINE 0-5 /HPF (0-5); SQUAMOUS EPITHELIAL CELL,UR FEW Squamous (<= Few); WBC CLUMPS,URINE PRESENT
== END 2018-01-18 14:22 | disposition home or self-care (01) ==
LOC: LAB 14:21
PROVIDERS: ATTEND Surgery
DX: R35.0 Frequency of micturition (principal); R39.15 Urgency of urination
CPT/HCPCS: 81001; 81003

== ENCOUNTER 2018-01-22 09:42 | Emergency (ER) | payer MEDICARE, OTHER ==
[2018-01-22 10:37] LABS: BASOPHILS % (AUTO) 0.6 %; EOSINOPHILS # (AUTO) 0.1 10^3/uL (0.0-0.7); EOSINOPHILS % (AUTO) 0.8 %; HGB - HEMOGLOBIN 12.7 g/dL (12.0-16.0); LYMPHOCYTES # (AUTO) 1.1 10^3/uL (1.5-3.5); LYMPHOCYTES % (AUTO) 14.2 %; MEAN CORPUSCULAR HEMOGLOBIN 31.8 pg (27.0-31.0); MEAN CORPUSCULAR HGB CONC 34.2 g/dL (32.0-36.0); MEAN CORPUSCULAR VOLUME 93.2 fL (81.0-99.0); MEAN PLATELET VOLUME 7.5 fL (7.9-10.8); MONOCYTES # (AUTO) 0.6 10^3/uL (0.0-1.0); MONOCYTES % (AUTO) 7.5 %; NEUTROPHILS % (AUTO) 76.9 %; PLT - PLATELET COUNT 226 10^3/uL (130-450); RED CELL DISTRIBUTION WIDTH 14.2 % (12.0-15.0); WHITE BLOOD COUNT 7.8 x10^3/uL (4.8-10.8)
[2018-01-22 10:54] LABS: ALBUMIN 3.7 g/dL (3.2-5.5); ALBUMIN/GLOBULIN RATIO 1.2 (1.0-2.2); BILIRUBIN,TOTAL 0.6 mg/dL (0.2-1.0); CALCIUM 9.1 mg/dL (8.5-10.3); CREATININE 0.6 mg/dL (0.4-1.0); TOTAL PROTEIN 6.7 g/dL (6.7-8.2)
[2018-01-22] MEDS ORDERED: SODIUM CHLORIDE 0.9% 1,000 ML IV ONE ×2 (11:42→13:47)
[2018-01-22] MEDS ORDERED: ONDANSETRON 4 MG/2 ML VIAL IVP STA (11:42)
[2018-01-22 13:39] LABS: BILIRUBIN,URINE NEGATIVE (NEGATIVE); GLUCOSE, URINE (UA) NEGATIVE (NEGATIVE); KETONES,URINE (UA) NEGATIVE (NEGATIVE); LEUKOCYTE ESTERASE, URINE SMALL (NEGATIVE); NITRITE,URINE NEGATIVE (NEGATIVE); OCCULT BLOOD,URINE NEGATIVE (NEGATIVE); PH,URINE 6.5 PH (5.0-7.5); PROTEIN,URINE NEGATIVE (NEGATIVE); UROBILINOGEN,URINE 0.2 (NORMAL) E.U./dL (NORMAL)
[2018-01-22 13:41] LABS: CLARITY,URINE HAZY (CLEAR)
[2018-01-22 14:04] LABS: RBC,URINE 0-5 /HPF (0-5); SQUAMOUS EPITHELIAL CELL,UR FEW Squamous (<= Few); WBC CLUMPS,URINE PRESENT
[2018-01-22 14:05] LABS: BACTERIA,URINE Few /HPF (None Seen); CASTS, URINE 0-2 Hyaline Casts /LPF; EPITHELIAL CELLS,UR FEW Renal Tubular /HPF (<= Few); MUCUS,URINE Marked Strands
[2018-01-22 14:46] VITALS: BP 136/70
--- NOTE | 2018-01-22 14:48 | ED Physician Documentation ---
History of Present Illness - Stated complaint Stated Complaint: WEAKNESS/NAUSEA - Chief complaint Chief Complaint: General - History obtained from History obtained from: Patient, Family - History of Present Illness Timing: How many days ago (2) - Additonal information Additional information: 77-year-old female who is recently had a bowel perforation secondary to constipation has had a repair done she has had Kanchan pouch and a diverting ostomy and she was improving over the past 2 weeks after getting out of the hospital and then about 3 days ago she developed some nausea. She was prescribed some Levaquin but did not pick that up with the thought that she likely had a urinary tract infection. She continues to have some nausea and feels ill. Review of Systems Constitutional: reports: Fatigue. denies: Fever Eyes: denies: Decreased vision Ears: denies: Ear pain Nose: denies: Congestion Throat: denies: Sore throat Cardiac: denies: Chest pain / pressure, Palpitations Respiratory: denies: Dyspnea, Cough GI: reports: Nausea. denies: Abdominal Pain, Vomiting : denies: Dysuria, Frequency Skin: denies: Rash Musculoskeletal: denies: Neck pain, Back pain, Extremity pain Neurologic: reports: Generalized weakness. denies: Focal weakness, Numbness PD PAST MEDICAL HISTORY - Past Medical History Cardiovascular: High cholesterol, Murmur Respiratory: None Neuro: CVA Endocrine/Autoimmune: HyPOthyroidism : None HEENT: Other Musculoskeletal: Osteoarthritis, Chronic back pain, Other Derm: Other - Past Surgical History Past Surgical History: Yes General: Other Ortho: Other HEENT: Tonsil/Adenoidectomy Derm: Skin cancer surgery - Present Medications Home Medications: Ambulatory Orders Medication Instructions Recorded Confirmed Clopidogrel [Plavix] 75 mg PO DAILY 04/06/14 12/25/17 Levothyroxine Sodium [Synthroid] 125 mcg PO DAILY 04/06/14 12/25/17 Celecoxib [Celebrex] 200 mg PO BID 06/08/16 12/26/17 Docusate Sodium 250Mg Capsule 250 mg PO BID 12/26/17 12/26/17 [Colace 250Mg Capsule] Multivitamin [Theragran] 1 each PO DAILY 12/26/17 12/26/17 Vitamin B Complex 1 each PO DAILY 12/26/17 12/26/17 Metoprolol Succinate [Toprol Xl] 25 mg PO DAILY #60 tablet 01/06/18 Promethazine [Phenergan] 12.5 mg PO Q6HR PRN #20 tablet 01/06/18 traMADol [Ultram] 50 mg PO Q4HR PRN #40 tablet 01/06/18 - Allergies Allergies/Adverse Reactions: Allergies Allergy/AdvReac Type Severity Reaction Status Date / Time meloxicam Allergy Intermediate Hives Verified 12/25/17 11:42 Penicillins Allergy Intermediate Hives Verified 12/25/17 11:42 Sulfa (Sulfonamide Allergy Intermediate Hives Verified 12/25/17 11:42 Antibiotics) - Social History Does the pt smoke?: No Smoking Status: Never smoker Does the pt drink ETOH?: Yes Does the pt have substance abuse?: No - Immunizations Immunizations are current?: No Immunizations: TDAP current <10years - POLST Patient has POLST: No POLST Status: Full Code PD ED PE NORMAL - Vitals Vital signs reviewed: Yes (normal ) - General General: Alert and oriented X 3, No acute distress, Well developed/nourished - HEENT HEENT: Atraumatic, PERRL, Other (dry mucous membranes) - Neck Neck: Supple, no meningeal sign, No bony TTP - Cardiac Cardiac: RRR, No murmur - Respiratory Respiratory: No respiratory distress, Clear bilaterally - Abdomen Abdomen: Soft, Non tender, Other (There is no evidence of inflammation over the abdominal wall and no specific tenderness. The ostomy is worknig and non-tender surrounding. 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 ) Results - Vitals Vitals: Vital Signs - 24 hr 01/22/18 01/22/18 01/22/18 09:49 12:34 14:45 Temperature 36.5 C Heart Rate 95 79 74 Respiratory 12 18 12 Rate Blood Pressure 99/72 126/69 136/70 H O2 Saturation 98 100 95 Oxygen O2 Source Room air - Labs Labs: Laboratory Tests 01/22/18 01/22/18 01/22/18 10:31 10:31 13:20 WBC 7.8 RBC 4.00 L Hgb 12.7 Hct 37.2 MCV 93.2 MCH 31.8 H MCHC 34.2 RDW 14.2 Plt Count 226 MPV 7.5 L Neut # 6.0 Lymph # 1.1 L Kimball # 0.6 Eos # 0.1 Baso # 0.0 Absolute Nucleated RBC 0.00 Nucleated RBC % 0.0 Sodium 133 L Potassium 3.7 Chloride 101 Carbon Dioxide 25 Anion Gap 7.0 BUN 11 Creatinine 0.6 Estimated GFR (MDRD) 97 Glucose 113 H Calcium 9.1 Total Bilirubin 0.6 AST 24 ALT 15 Alkaline Phosphatase 66 Total Protein 6.7 Albumin 3.7 Globulin 3.0 Albumin/Globulin Ratio 1.2 Lipase 31 Urine Color YELLOW Urine Clarity HAZY Urine pH 6.5 Ur Specific [place] 1.015 Urine Protein NEGATIVE Urine Glucose (UA) NEGATIVE Urine Ketones NEGATIVE Urine Occult Blood NEGATIVE Urine Nitrite NEGATIVE Urine Bilirubin NEGATIVE Urine Urobilinogen 0.2 (NORMAL) Ur Leukocyte Esterase SMALL H Urine RBC 0-5 Urine WBC >25 H Urine WBC Clumps PRESENT Ur Epithelial Cells FEW Renal Tubular Ur Squamous Epith Cells FEW Squamous Urine Bacteria Few Urine Casts 0-2 Hyaline Casts Urine Mucus Marked Strands Ur Microscopic Review INDICATED Urine Culture Comments INDICATED Procedures - IVC sono (time) 1340 Bedside IVC sono: IVC measures (cm) (1.22), IVC collapsed c insp (cm) (complete) , Dehydration (after one liter in the deficit is estimated at 1 liter.) PD MEDICAL DECISION MAKING - ED course Complexity details: reviewed old records, reviewed results, re-evaluated patient , considered differential, d/w patient, d/w family ED course: 77-year-old female 1 month out from fecal peritonitis from a ruptured colon has been improving for the past 2 weeks and over the last 3 days she has developed nausea and weakness. She has decreased her oral intake and onInterrogation of the inferior vena cava she is found to be dehydrated after 1 L of saline is already been infused. She is given a second liter of saline a urine specimen is is obtained and this shows evidence of obvious infection with greater than 25 white blood cells per high-power field bacteria in clumps with white blood cells. She is administered a gram of Rocephin intravenously We have asked patient to continue her Levaquin and Dr. Brown this is consulted in the case.. Departure - Departure Disposition: 01 Home, Self Care Clinical Impression: Dehydration UTI (urinary tract infection) Qualifiers: Urinary tract infection type: acute cystitis Hematuria presence: without hematuria Qualified Code(s): N30.00 - Acute cystitis without hematuria Condition: Stable Instructions: ED Dehydration, ED UTI Cystitis Female Follow-Up: SHANNAN WOLF MD [Primary Care Provider] - Comments: Fill the prescription for the Levaquin that Dr. Brown has provided for you. Discharge Date/Time: 01/22/18 16:15
[2018-01-22] MEDS ORDERED: cefTRIAXone 1 GM in SODIUM CHLORIDE 0.9% MINIBAG 100 ML IV STA (14:49)
== END 2018-01-22 16:15 | disposition home or self-care (01) ==
LOC: ED 09:42
DX: E86.0 Dehydration (principal); N30.00 Acute cystitis without hematuria; E78.00 Pure hypercholesterolemia, unspecified; Z86.73 Personal history of transient ischemic attack (TIA), and cerebral infarction without residual deficits
CPT/HCPCS: 36415; 51798; 80053; 81001; 81003; 83690; 85025; 87086; 96361; 96365; 96375; 99283; 99284

== ENCOUNTER 2018-02-06 10:45 | Outpatient (CLI) | payer MEDICARE, OTHER ==
[2018-02-06 11:22] LABS: BILIRUBIN,URINE NEGATIVE (NEGATIVE); GLUCOSE, URINE (UA) NEGATIVE (NEGATIVE); KETONES,URINE (UA) NEGATIVE (NEGATIVE); LEUKOCYTE ESTERASE, URINE TRACE (NEGATIVE); NITRITE,URINE NEGATIVE (NEGATIVE); OCCULT BLOOD,URINE SMALL (NEGATIVE); PH,URINE 5.5 PH (5.0-7.5); PROTEIN,URINE NEGATIVE (NEGATIVE); UROBILINOGEN,URINE 0.2 (NORMAL) E.U./dL (NORMAL)
[2018-02-06 11:25] LABS: CLARITY,URINE CLEAR (CLEAR)
[2018-02-06 11:40] LABS: SQUAMOUS EPITHELIAL CELL,UR RARE Squamous (<= Few)
[2018-02-06 11:41] LABS: BACTERIA,URINE Rare /HPF (None Seen)
== END 2018-02-06 10:46 | disposition home or self-care (01) ==
LOC: LAB.R 10:45
PROVIDERS: ATTEND Internal Medicine
DX: R30.0 Dysuria (principal)
CPT/HCPCS: 81001; 81003; 87086

== ENCOUNTER 2018-02-09 14:48 | Outpatient (CLI) | payer MEDICARE, OTHER | END 2018-02-09 14:49 | disposition home or self-care (01) | LOC: LAB 14:48 | PROVIDERS: ATTEND Orthopaedic Surgery | DX: Z01.812 Encounter for preprocedural laboratory examination (principal); M16.12 Unilateral primary osteoarthritis, left hip ==

== ENCOUNTER 2018-02-12 10:54 | Outpatient (CLI) | payer MEDICARE, OTHER ==
[2018-02-12 11:35] LABS: BASOPHILS % (AUTO) 0.5 %; EOSINOPHILS # (AUTO) 0.1 10^3/uL (0.0-0.7); EOSINOPHILS % (AUTO) 1.8 %; HGB - HEMOGLOBIN 12.3 g/dL (12.0-16.0); LYMPHOCYTES % (AUTO) 22.8 %; MEAN CORPUSCULAR HGB CONC 33.1 g/dL (32.0-36.0); MEAN CORPUSCULAR VOLUME 93.7 fL (81.0-99.0); MEAN PLATELET VOLUME 7.6 fL (7.9-10.8); MONOCYTES # (AUTO) 0.4 10^3/uL (0.0-1.0); MONOCYTES % (AUTO) 8.3 %; NEUTROPHILS % (AUTO) 66.6 %; PLT - PLATELET COUNT 256 10^3/uL (130-450); RED BLOOD COUNT 3.98 10^6/uL (4.20-5.40); RED CELL DISTRIBUTION WIDTH 14.3 % (12.0-15.0); WHITE BLOOD COUNT 4.5 x10^3/uL (4.8-10.8)
[2018-02-12 11:53] LABS: ALBUMIN 3.8 g/dL (3.2-5.5); ALBUMIN/GLOBULIN RATIO 1.5 (1.0-2.2); BILIRUBIN,TOTAL 0.5 mg/dL (0.2-1.0); CALCIUM 9.1 mg/dL (8.5-10.3); CREATININE 0.6 mg/dL (0.4-1.0); TOTAL PROTEIN 6.4 g/dL (6.7-8.2)
== END 2018-02-12 10:55 | disposition home or self-care (01) ==
LOC: LAB 10:54
PROVIDERS: ATTEND Orthopaedic Surgery
DX: Z01.812 Encounter for preprocedural laboratory examination (principal); M16.12 Unilateral primary osteoarthritis, left hip
CPT/HCPCS: 36415; 80053; 85025

== ENCOUNTER 2018-02-28 08:00 | Outpatient (CLI) | payer MEDICARE, OTHER ==
[2018-02-28 10:59] LABS: BILIRUBIN,URINE NEGATIVE (NEGATIVE); GLUCOSE, URINE (UA) NEGATIVE (NEGATIVE); KETONES,URINE (UA) NEGATIVE (NEGATIVE); LEUKOCYTE ESTERASE, URINE MODERATE (NEGATIVE); NITRITE,URINE NEGATIVE (NEGATIVE); OCCULT BLOOD,URINE TRACE-INTA (NEGATIVE); PROTEIN,URINE TRACE mg/dL (NEGATIVE); UROBILINOGEN,URINE 0.2 (NORMAL) E.U./dL (NORMAL)
[2018-02-28 11:01] LABS: CLARITY,URINE SL. CLOUDY (CLEAR)
[2018-02-28 11:11] LABS: BACTERIA,URINE Moderate /HPF (None Seen); SQUAMOUS EPITHELIAL CELL,UR NONE SEEN (<= Few)
== END 2018-02-28 08:01 | disposition home or self-care (01) ==
LOC: LAB.R 08:00
PROVIDERS: ATTEND Internal Medicine
DX: N39.0 Urinary tract infection, site not specified (principal)
CPT/HCPCS: 81001; 81003; 87086

== ENCOUNTER 2018-03-13 12:19 | Outpatient (CLI) | payer MEDICARE, OTHER ==
[2018-03-13 13:06] LABS: BILIRUBIN,URINE NEGATIVE (NEGATIVE); GLUCOSE, URINE (UA) NEGATIVE (NEGATIVE); KETONES,URINE (UA) NEGATIVE (NEGATIVE); LEUKOCYTE ESTERASE, URINE NEGATIVE (NEGATIVE); NITRITE,URINE NEGATIVE (NEGATIVE); OCCULT BLOOD,URINE NEGATIVE (NEGATIVE); PROTEIN,URINE NEGATIVE (NEGATIVE); UROBILINOGEN,URINE 0.2 (NORMAL) E.U./dL (NORMAL)
[2018-03-13 13:07] LABS: CLARITY,URINE CLEAR (CLEAR)
[2018-03-13 13:09] LABS: BASOPHILS # (AUTO) 0.1 10^3/uL (0.0-0.1); BASOPHILS % (AUTO) 0.6 %; EOSINOPHILS # (AUTO) 0.2 10^3/uL (0.0-0.7); EOSINOPHILS % (AUTO) 2.3 %; HGB - HEMOGLOBIN 11.2 g/dL (12.0-16.0); LYMPHOCYTES # (AUTO) 1.5 10^3/uL (1.5-3.5); LYMPHOCYTES % (AUTO) 15.8 %; MEAN CORPUSCULAR HEMOGLOBIN 30.6 pg (27.0-31.0); MEAN CORPUSCULAR HGB CONC 32.9 g/dL (32.0-36.0); MEAN CORPUSCULAR VOLUME 92.9 fL (81.0-99.0); MEAN PLATELET VOLUME 6.8 fL (7.9-10.8); MONOCYTES # (AUTO) 0.7 10^3/uL (0.0-1.0); MONOCYTES % (AUTO) 7.6 %; NEUTROPHILS % (AUTO) 73.7 %; PLT - PLATELET COUNT 450 10^3/uL (130-450); RED BLOOD COUNT 3.67 10^6/uL (4.20-5.40); RED CELL DISTRIBUTION WIDTH 16.6 % (12.0-15.0); WHITE BLOOD COUNT 9.5 x10^3/uL (4.8-10.8)
[2018-03-13 14:02] LABS: % IRON SATURATION 9 % (20-50); IRON 23 ug/dL (28-170); TOTAL IRON BINDING CAPACITY 265 ug/dL (250-450); TRANSFERRIN 189 mg/dL (192-382)
== END 2018-03-13 12:20 | disposition home or self-care (01) ==
LOC: LAB.R 12:19
PROVIDERS: ATTEND Internal Medicine
DX: M06.9 Rheumatoid arthritis, unspecified (principal); N39.0 Urinary tract infection, site not specified; D50.8 Other iron deficiency anemias; Z79.02 Long term (current) use of antithrombotics/antiplatelets
CPT/HCPCS: 81001; 81003; 82607; 82728; 83540; 84466; 85025; 87086

== ENCOUNTER 2018-05-04 06:36 | Inpatient (IN) | payer MEDICARE, OTHER ==
[2018-05-04] MEDS ORDERED: LACTATED RINGERS 1,000 ML IV ONE ×3 (06:38→12:03)
[2018-05-04] MEDS ORDERED: ceFAZolin 2 GM/50 ML 2 GM/50 ML BAG IV ONE (06:44)
[2018-05-04] MEDS: ONDANSETRON 4 MG/2 ML VIAL ONE ×3 (07:28→13:08)
[2018-05-04] MEDS ORDERED: ONDANSETRON 4 MG/2 ML VIAL IVP ONE (07:30)
[2018-05-04] MEDS ORDERED: NEOSTIGMINE 1 MG/1 ML 10 ML MDV IVP ONE (07:30)
[2018-05-04] MEDS ORDERED: fentaNYL 250 MCG/5 ML VIAL IVP ONE (07:30)
[2018-05-04] MEDS ORDERED: ACETAMINOPHEN 1,000 MG/100 ML 100 ML IV ONE (07:30)
[2018-05-04] MEDS ORDERED: SODIUM CHLORIDE 0.9% 10 ML VIAL IV ONE (07:30)
[2018-05-04] MEDS ORDERED: GLYCOPYRROLATE 1 MG/5 ML VIAL IVP ONE (07:30)
[2018-05-04] MEDS ORDERED: PHENYLEPHRINE 50 MG/5 ML VIAL IV ONE (07:30)
[2018-05-04] MEDS ORDERED: ePHEDrine 50 MG/ML AMP IVP ONE (07:30)
[2018-05-04] MEDS ORDERED: PROPOFOL 200 MG/20 ML VIAL IVP ONE (07:30)
[2018-05-04] MEDS ORDERED: MIDAZOLAM 2 MG/2 ML VIAL IVP ONE (07:30)
[2018-05-04] MEDS ORDERED: ROCURONIUM 50 MG/5 ML VIAL IVP ONE (07:30)
[2018-05-04] MEDS ORDERED: DEXAMETHASONE 4 MG/ML VIAL IVP ONE (07:30)
[2018-05-04] MEDS ORDERED: LIDOCAINE-MPF 2% 5 ML VIAL IM ONE (07:30)
[2018-05-04 07:38] LABS: BASOPHILS % (AUTO) 0.6 %; EOSINOPHILS # (AUTO) 0.1 10^3/uL (0.0-0.7); EOSINOPHILS % (AUTO) 1.6 %; HGB - HEMOGLOBIN 12.1 g/dL (12.0-16.0); LYMPHOCYTES # (AUTO) 1.1 10^3/uL (1.5-3.5); LYMPHOCYTES % (AUTO) 17.4 %; MEAN CORPUSCULAR HEMOGLOBIN 30.9 pg (27.0-31.0); MEAN CORPUSCULAR HGB CONC 32.8 g/dL (32.0-36.0); MEAN CORPUSCULAR VOLUME 94.3 fL (81.0-99.0); MEAN PLATELET VOLUME 7.5 fL (7.9-10.8); MONOCYTES # (AUTO) 0.5 10^3/uL (0.0-1.0); MONOCYTES % (AUTO) 7.3 %; NEUTROPHILS # (AUTO) 4.8 10^3/uL (1.5-6.6); NEUTROPHILS % (AUTO) 73.1 %; PLT - PLATELET COUNT 238 10^3/uL (130-450); RED BLOOD COUNT 3.92 10^6/uL (4.20-5.40); RED CELL DISTRIBUTION WIDTH 15.9 % (12.0-15.0); WHITE BLOOD COUNT 6.6 x10^3/uL (4.8-10.8)
[2018-05-04] MEDS ORDERED: BUPIVACAINE 0.5% PF 30 ML VIAL ONE (08:23)
[2018-05-04] MEDS ORDERED: cefOXitin 2 GM in SODIUM CHLORIDE 0.9% MINIBAG 100 ML IV ONE (08:45)
[2018-05-04] MEDS ORDERED: BUPIVACAINE 0.5% PF 30 ML VIAL INFIL ONE (10:01)
[2018-05-04] MEDS: HYDROmorphone 1 MG/ML CARPUJECT ONE ×2 (13:14→13:49)
[2018-05-04] MEDS: PROMETHAZINE 25 MG/1 ML VIAL ONE ×2 (13:17→13:34)
[2018-05-04] MEDS ORDERED: ONDANSETRON 4 MG/2 ML VIAL ONE (13:23)
--- NOTE | 2018-05-04 13:34 | OPERATIVE REPORT ---
Operative Report - General Admit Date: 05/04/18 Planned Procedure: Colostomy takedown Pre-Op Diagnosis: Colostomy Procedure Performed: Colostomy takedown (SILS converted to open), rigid proctoscopy, colonoscopy Post Op Diagnosis: Same - Procedure Note Primary Surgeon: Rudy Oropeza MD with co-surgeon Ankit Paula MD Anesthesia Provider: Angel Hassan CRNA Anesthesia Technique: General ET tube IV Fluids (mL): 2,300 Estimated Blood Loss (mL): 600 Urine Output (mL): 450 Drain/Tube Type: Popeye drain (19 Fr in pelvis above anastamosis) Complications: None. - Other Other Information/Narrative: OPERATIVE DESCRIPTION/REPORT: After verbal and written informed consent was obtained detailing the risks of infection, bleeding with all of its risks including transfusion, and the patient was brought to the operative suite and placed initially in the supine position on the operating room table and then once anesthetized in stirrups taking care to pad all extremities. Monitoring devices were applied along with TEDs and pneumatic compressive stockings. The colostomy was sutured closed. Care was taken to avoid pressure points. Prophylactic antibiotics were given. An adequate level of general endotracheal anesthesia was established by [name]. The abdomen was then prepped with ChloraPrep and draped in a sterile fashion. A "time in" then confirmed that the patient was identified with 3 identifiers ( name, date and medical record number), the history and physical was in the chart, the signed consent confirming the procedure was in the chart, the patient was in the correct position, the aforementioned prophylactic measures were in place or given, we had the correct personnel and equipment to complete the procedure and that anesthesia, surgery and nursing were given an opportunity to express any concerns. An elliptical incision was made and dissection down to the colon and the fascia was completed using Bovie electrocautery. Subcutaneous adhesions were taken again using Bovie electrocautery until the fascia was clearly identified around the colon. Adhesions of the colon to the fascia were similarly taken using Bovie electrocautery until I was able to enter the abdomen proper. Intraloop adhesions and adhesions to the anterior abdominal wall were taken down using Bovie electrocautery. This was done until I was able to place the GelPort in position without the ring impinging on any bowel. Three 5 mm ports were placed in the Gelport in a triangular fashion, and the Gelport was attached to the ring. The abdominal cavity was insufflated with carbon dioxide to steady-state pressure of 15 mmHg. At this point, the patient was placed in reverse [place] position with the right lateral decubitus tilt and the rectum was found and the identifying suture seen and used for retraction. Once I was satisfied that the colon could be anastomosed without any tension the Gelport was removed and the colostomy was grasped and gently brought out through the skin incision. A reusable automatic purse string device was placed across the colon and the purse string created with the passage of a 3-0 Prolene on a Baldo needle through the device. The bowel was transected with a scalpel and sent off the operative field. I did not send it to pathology. The pursestring was opened and with some difficulty a 28 mm anvil from an EEA stapler placed in the open end and the purse string tied tight around the post. This was then dropped into the abdomen and Gelport re-applied and the abdomen re-insufflated. With the pneumoperitoneum re-established the EEA stapler was placed transanally by Dr. Ankit Paula with the aid of a water soluble lubricant and the spike brought out under direct vision. Immediately it was apparent that there was a problem as the entire post could not be extended or so it seemed. Dr. Paula placed his finger in the patient's vagina and it was clear that we were "picking up" the wall with the spike. In other words, if I had applied the stapler I would have included some of the vaginal wall in the anastomosis. Obviously this was not desired. With the anatomy unclear, I decided to open the patient's abdomen. The SILS port was removed and the previous midline incision was traced with the scalpel and extended inferiorly 4 cm to the pubic tubercle. A Tanmay retractor and bladder blade were placed. Extensive dissection freed the uterus and fallopian tubes bilaterally. Both ovaries were never definitively seen and we were not specifically looking for them. Additional dissection dissected the vagina from the very distal rectum. At this point Dr. Ankit Paula placed a rigid proctoscope in the patient's anus to see if he could see the hole that we had made in the rectum. He thought he could but in order to better visualize we had the colonoscopy tower brought into the room and Dr. Ankit Paula then performed colonoscopy. With this modality we could clearly see the hole endoscopically but even with transillumination it was difficult for me to see the hole from within the abdomen. To help close the hole and allow us to re-anastomose the bowel, I then placed a figure-8 2-0 Vicryl suture across the hole (and this is important) guided by Dr. Ankit Paula 's direction colonoscopically. Now with the stitch in place marking the now closed hole and the vagina and uterus completely out of the way I could have Dr. Paula place the 28 EEA stapler through the patient's anus with the aid of a water soluble lubricant and into her rectum directing the spike to come out just where the stitch was tied. In other words, the anastomosis would cover the previously placed hole. The post of the anvil was then placed over the spike and the stapler screwed down tight and fired thus creating the colocolostomy. With the pelvis filled with sterile saline, Dr. Paula again placed the colonoscope into the patient's rectum, the rectum was filled with air , the anastomosis was directly visualized and noted to be intact. Additionally , with the colon very distneded no leak of air was noted and there was no tension on the anastomosis. A small mesenteric defect near the anastomosis was closed by Dr. Paula with the application of an endoclip. Satisfied that there was no leak, the saline was removed. The anastomosis was visually checked for a leak and there was none. There was no bleeding noted. Due to concerns that I had I placed a 19 Fr Popeye drain through the skin and subcutaneous tissues in the right lower quadrant securing it to the skin with a 3-0 Nylon suture Julián- sandaled about the drain. The drain was placed across the anterior pelvis making sure it did not contact the anastomosis. The fascia was closed at the midline using a looped 0-PDS starting superiorly and inferiorly and running to tie the knot in the middle. The knot was dunked. The fascia and peritoneum at the colostomy site were closed using a running 0 PDS. Meticulous hemostasis was obtained using Bovie electrocautery. The skin incisions were approximated with skin felisha. At the colostomy site the midportion of the incision was left open and the wound was packed with 1/2 inch Iodophor gauze. The drain was hooked up to grenade suction. At this point a time out was performed that confirmed that all the counts were correct, the procedure that was performed, the blood loss, the IV fluids administered, and the patients condition. Dressings were applied. Having tolerated the procedure well, the patient was subsequently extubated and taken to recovery room in good and stable condition. Please note that there is no way this operation could have been completed as it was completed without Dr. Ankit Paula in the room operating independently from me. In other words, I could not operate the colonoscope and place a stitch intra-abdominally at the same time. This is but one example of where two surgeons operating independently but together allow this case to be completed. As such he should be listed as a co-surgeon and the proctoscopy report and colonoscopy report will be reported by him.
[2018-05-04] MEDS ORDERED: PROCHLORPERAZINE 10 MG/2 ML VIAL IVP PRN (13:49)
[2018-05-04] MEDS ORDERED: ONDANSETRON 4 MG/2 ML VIAL IVP PRN (13:49)
[2018-05-04] MEDS ORDERED: SODIUM CHLORIDE FLUSH 0.9% 10 ML SYRINGE IVP PRN (13:49)
[2018-05-04] MEDS ORDERED: METOCLOPRAMIDE 10 MG/2 ML VIAL IVP PRN (13:49)
[2018-05-04] MEDS: ACETAMINOPHEN 1,000 MG/100 ML 100 ML IV SCH ×2 (15:50→20:49)
[2018-05-04] MEDS: D5NS W/20 MEQ KCL 1,000 ML IV SCH (15:51)
[2018-05-04] MEDS ORDERED: cefOXitin 2 GM in SODIUM CHLORIDE 0.9% MINIBAG 100 ML IV SCH (16:00)
[2018-05-04] MEDS: SODIUM CHLORIDE FLUSH 0.9% 10 ML SYRINGE IVP SCH (16:51)
[2018-05-04] MEDS: MORPHINE 2 MG/ML SYRINGE IVP PRN (19:06)
[2018-05-04] MEDS: ATORVASTATIN 10 MG TABLET PO SCH (20:49)
[2018-05-04] MEDS ORDERED: SODIUM CHLORIDE 0.9% 500 ML IV ONE (22:56)
[2018-05-05] MEDS: ACETAMINOPHEN 1,000 MG/100 ML 100 ML IV SCH ×4 (00:22→22:18)
[2018-05-05] MEDS: SODIUM CHLORIDE FLUSH 0.9% 10 ML SYRINGE IVP SCH ×3 (00:24→16:07)
[2018-05-05] MEDS: D5NS W/20 MEQ KCL 1,000 ML IV SCH ×2 (05:29→17:34)
[2018-05-05 06:15] LABS: BASOPHILS % (AUTO) 0.2 %; HGB - HEMOGLOBIN 9.4 g/dL (12.0-16.0); MEAN CORPUSCULAR HEMOGLOBIN 30.9 pg (27.0-31.0); MEAN CORPUSCULAR HGB CONC 32.4 g/dL (32.0-36.0); MEAN CORPUSCULAR VOLUME 95.2 fL (81.0-99.0); MEAN PLATELET VOLUME 7.2 fL (7.9-10.8); MONOCYTES # (AUTO) 0.8 10^3/uL (0.0-1.0); MONOCYTES % (AUTO) 9.1 %; NEUTROPHILS # (AUTO) 7.4 10^3/uL (1.5-6.6); NEUTROPHILS % (AUTO) 79.7 %; PLT - PLATELET COUNT 221 10^3/uL (130-450); RED BLOOD COUNT 3.05 10^6/uL (4.20-5.40); RED CELL DISTRIBUTION WIDTH 15.5 % (12.0-15.0); WHITE BLOOD COUNT 9.2 x10^3/uL (4.8-10.8)
[2018-05-05 06:28] LABS: ALBUMIN 2.8 g/dL (3.2-5.5); ALBUMIN/GLOBULIN RATIO 1.3 (1.0-2.2); BILIRUBIN,TOTAL 0.6 mg/dL (0.2-1.0); CREATININE 0.6 mg/dL (0.4-1.0)
[2018-05-05] MEDS: LEVOTHYROXINE 125 MCG TABLET PO SCH (06:37)
[2018-05-05] MEDS: MORPHINE 2 MG/ML SYRINGE IVP PRN ×4 (09:46→20:18)
[2018-05-05] MEDS: MULTIVITAMIN TABLET PO SCH (09:51)
[2018-05-05] MEDS: MIRTAZAPINE 15 MG TABLET PO SCH (09:51)
[2018-05-05] MEDS ORDERED: LORazepam 2 MG/ML VIAL IVP SCH (11:40)
[2018-05-05] MEDS: NON FORMULARY MED (Vitamin B Complex [Vitamin B Complex] 1 EACH) PO SCH (12:18)
--- NOTE | 2018-05-05 12:39 | PROVIDER PROGRESS NOTE ---
Subjective - General Admit Date: 05/04/18 Procedure Date: 05/04/18 Post Op Days: 1 Procedure Performed: Colostomy takedown (complex) - Review of Systems Wound/Incisions: positive: Drainage (Drainage on the dressing that has a wick of Iodophor gauze. Will removed tomorrow.) General: positive: Other (Complains greatly of back pain - has not ambulated today despite instructions to do so citing the back pain.) HEENT: positive: No symptoms Pulmonary: positive: No symptoms Cardiovascular: positive: No symptoms Gastrointestinal: positive: No symptoms, Abdominal pain (Some but complains more of back pain.). negative: Nausea, Vomiting, Difficulty swallowing Skin: positive: No symptoms Psychiatric: positive: No symptoms Objective - Patient Data Reviewed Vital Signs: Yes Vital Signs: Vital Signs x48h Temp Pulse Resp BP Pulse Ox 05/05/18 12:08 80 122/72 05/05/18 09:52 76 132/62 H 05/05/18 07:43 37.1 C 70 16 104/44 L 96 05/05/18 05:14 100/43 L Weight: Weight 05/03/18 05/04/18 05/05/18 23:59 23:59 23:59 Weight (kg) 59 kg Intake & Output: Intake and Output Totals x24h 05/03/18 05/04/18 05/05/18 23:59 23:59 23:59 Intake Total 800 2070 Output Total 1433 2660 Balance -979 -590 - Lab Results Lab Results: 05/05/18 05:58 05/05/18 05:58 Other Lab Results: Lab Results x24hrs 05/05/18 05/05/18 Range/Units 05:58 05:58 WBC 9.2 (4.8-10.8) x10^3/uL RBC 3.05 L (4.20-5.40) 10^6/uL Hgb 9.4 L (12.0-16.0) g/dL Hct 29.1 L (37.0-47.0) % MCV 95.2 (81.0-99.0) fL MCH 30.9 (27.0-31.0) pg MCHC 32.4 (32.0-36.0) g/dL RDW 15.5 H (12.0-15.0) % Plt Count 221 (130-450) 10^3/uL MPV 7.2 L (7.9-10.8) fL Neut # (Auto) 7.4 H (1.5-6.6) 10^3/uL Lymph # (Auto) 1.0 L (1.5-3.5) 10^3/uL [place] # (Auto) 0.8 (0.0-1.0) 10^3/uL Eos # (Auto) 0.0 (0.0-0.7) 10^3/uL Baso # (Auto) 0.0 (0.0-0.1) 10^3/uL Absolute Nucleated RBC 0.00 x10^3/uL Nucleated RBC % 0.0 /100WBC Sodium 140 (135-145) mmol/L Potassium 4.1 (3.5-5.0) mmol/L Chloride 108 (101-111) mmol/L Carbon Dioxide 26 (21-32) mmol/L Anion Gap 6.0 (6-13) BUN 11 (6-20) mg/dL Creatinine 0.6 (0.4-1.0) mg/dL Estimated GFR (MDRD) 97 (>89) Glucose 116 H (70-100) mg/dL Calcium 8.0 L (8.5-10.3) mg/dL Total Bilirubin 0.6 (0.2-1.0) mg/dL AST 24 (10-42) IU/L ALT 16 (10-60) IU/L Alkaline Phosphatase 40 L (42-121) IU/L Total Protein 5.0 L (6.7-8.2) g/dL Albumin 2.8 L (3.2-5.5) g/dL Globulin 2.2 (2.1-4.2) g/dL Albumin/Globulin Ratio 1.3 (1.0-2.2) - Current Medications Current Medications: Current Medications Generic Name Dose Route Start Last Admin Trade Name Freq PRN Reason Stop Dose Admin Atorvastatin Calcium 10 mg 05/04/18 21:00 05/04/18 20:49 Lipitor PO 10 mg QPM ELIZA Administration Potassium Chloride/Dextrose/Sod Cl 1,000 mls @ 83 mls/hr 05/04/18 14:00 05/05 05:29 IV 83 mls/hr .Q12H3M ELIZA Administration Acetaminophen 100 mls @ 400 mls/hr 05/04/18 14:00 05/05/18 10:32 Ofirmev IV Infused Q6H ELIZA Infusion Levothyroxine Sodium 125 mcg 05/05/18 07:00 05/05/18 06:37 Synthroid PO 125 mcg QDAC ELIZA Administration Lorazepam 1 mg 05/05/18 11:40 05/05/18 12:04 Ativan Inj (Vial) IVP 05/05/18 12:40 1 mg ONCE ELIZA Administration Metoclopramide HCl 10 mg 05/04/18 13:49 05/04/18 19:06 Reglan Inj IVP 10 mg Q6H PRN Administration Nausea / Vomiting Mirtazapine 15 mg 05/05/18 09:00 05/05/18 09:51 Remeron PO 15 mg DAILY ELIZA Administration Morphine Sulfate 2 mg 05/04/18 13:49 05/05/18 09:46 Morphine IVP 2 mg Q2HR PRN Administration PAIN Multivitamins 1 tab 05/05/18 09:00 05/05/18 09:51 Theragran PO 1 tab DAILY ELIZA Administration Non-Formulary Medication 1 each 05/05/18 09:00 05/05/18 12:18 Vitamin B Complex [Vitamin B Complex] PO Not Given DAILY ELIZA Sodium Chloride 10 ml 05/04/18 17:00 05/05/18 09:46 Normal Saline Flush 0.9% IVP 10 ml 0100,0900,1700 ELIZA Administration - Physical Exam Wound/Incisions: positive: Drainage (Again the one with the Iodophor wick.) General Appearance: positive: Mild distress (Complaining of back pain.) Eyes Bilateral: positive: No lid inflammation, Conjunctivae nml, No scleral icterus ENT: positive: No signs of dehydration Neck: positive: Trachea midline Respiratory: positive: Breath sounds nml Cardiovascular: positive: Regular rate & rhythm Abdomen: positive: Abnml bowel sounds (Decreased.) Skin: positive: Color nml Extremities: positive: Nml appearance Neurologic/Psychiatric: positive: Oriented x3 Impression/Plan - Problem List Problem List: D1 s/p complex colostomy takedown needing the intervention and concurrent skills of two general surgeons 1) FEN Continue clear liquid diet and lower IV amount. Awaiting bowel function before advancing diet. 2) Pain Will add Ativan 1 mg Q 8 hours to help with back pain. Will restart Celebrex. 3) DVT prophylaxis TEDs and Venadynes on but must get her walking 4) Pathology Nothing sent. 5) 96 hour certification If I can get the patient to buy into ambulating and getting out of bed I think she will go home in less than 96 hours.
[2018-05-05] MEDS ORDERED: LORazepam 2 MG/ML VIAL IVP PRN (12:51)
[2018-05-05] MEDS: CELECOXIB 100 MG CAPSULE PO SCH ×2 (14:27→20:17)
[2018-05-05] MEDS: ATORVASTATIN 10 MG TABLET PO SCH (20:17)
[2018-05-06] MEDS: ACETAMINOPHEN 1,000 MG/100 ML 100 ML IV SCH ×4 (04:31→22:26)
[2018-05-06] MEDS: SODIUM CHLORIDE FLUSH 0.9% 10 ML SYRINGE IVP SCH ×3 (04:53→16:34)
[2018-05-06] MEDS: D5NS W/20 MEQ KCL 1,000 ML IV SCH (05:54)
[2018-05-06] MEDS: LEVOTHYROXINE 125 MCG TABLET PO SCH (06:52)
[2018-05-06] MEDS: CELECOXIB 100 MG CAPSULE PO SCH ×2 (08:56→20:42)
[2018-05-06] MEDS: MULTIVITAMIN TABLET PO SCH (08:56)
[2018-05-06] MEDS: NON FORMULARY MED (Vitamin B Complex [Vitamin B Complex] 1 EACH) PO SCH (08:56)
[2018-05-06] MEDS: MIRTAZAPINE 15 MG TABLET PO SCH (08:56)
--- NOTE | 2018-05-06 10:25 | PROVIDER PROGRESS NOTE ---
Subjective - General Admit Date: 05/04/18 Procedure Date: 05/04/18 Post Op Days: 2 Procedure Performed: Colostomy takedown (complex) - Review of Systems Wound/Incisions: positive: Drainage (Again the one with the Iodophor wick.) General: positive: Other (Complains greatly of back pain - has not ambulated today despite instructions to do so citing the back pain.) HEENT: positive: No symptoms Pulmonary: positive: No symptoms Cardiovascular: positive: No symptoms Gastrointestinal: positive: No symptoms, Abdominal pain (Some but complains more of back pain.), Flatus. negative: Nausea, Vomiting, Difficulty swallowing Genitourinary: positive: No symptoms Skin: positive: No symptoms Psychiatric: positive: No symptoms Objective - Patient Data Reviewed Vital Signs: Yes Vital Signs: Vital Signs x48h Temp Pulse Resp BP Pulse Ox 05/06/18 04:38 120/54 L 05/06/18 04:12 36.9 C 73 18 100/39 L 94 Weight: Weight 05/04/18 05/05/18 05/06/18 23:59 23:59 23:59 Weight (kg) 59 kg Intake & Output: Intake and Output Totals x24h 05/04/18 05/05/18 05/06/18 23:59 23:59 23:59 Intake Total 800 4050 1498.733 Output Total 1433 3090 325 Balance -130 185 4648.733 - Lab Results Lab Results: 05/05/18 05:58 05/05/18 05:58 - Current Medications Current Medications: Current Medications Generic Name Dose Route Start Last Admin Trade Name Freq PRN Reason Stop Dose Admin Atorvastatin Calcium 10 mg 05/04/18 21:00 05/05/18 20:17 Lipitor PO 10 mg QPM ELIZA Administration Celecoxib 200 mg 05/05/18 13:00 05/06/18 08:56 Celebrex PO 200 mg BID ELIZA Administration Potassium Chloride/Dextrose/Sod Cl 1,000 mls @ 83 mls/hr 05/04/18 14:00 05/06 06:22 IV 83 mls/hr .Q12H3M ELIZA Infusion Acetaminophen 100 mls @ 400 mls/hr 05/05/18 16:00 05/06/18 04:53 Ofirmev IV Infused Q6H ELIZA Infusion Levothyroxine Sodium 125 mcg 05/05/18 07:00 05/06/18 06:52 Synthroid PO 125 mcg QDAC ELIZA Administration Metoclopramide HCl 10 mg 05/04/18 13:49 05/04/18 19:06 Reglan Inj IVP 10 mg Q6H PRN Administration Nausea / Vomiting Mirtazapine 15 mg 05/05/18 09:00 05/06/18 08:56 Remeron PO 15 mg DAILY ELIZA Administration Morphine Sulfate 2 mg 05/04/18 13:49 05/05/18 20:18 Morphine IVP 2 mg Q2HR PRN Administration PAIN Multivitamins 1 tab 05/05/18 09:00 05/06/18 08:56 Theragran PO 1 tab DAILY ELIZA Administration Non-Formulary Medication 1 each 05/05/18 09:00 05/06/18 08:56 Vitamin B Complex [Vitamin B Complex] PO Not Given DAILY ELIZA Prochlorperazine Edisylate 10 mg 05/04/18 13:49 05/05/18 20:24 Compazine Inj IVP 10 mg Q4HR PRN Administration Nausea / Vomiting Sodium Chloride 10 ml 05/04/18 17:00 05/06/18 08:56 Normal Saline Flush 0.9% IVP Not Given 0100,0900,1700 [facility] - Physical Exam Wound/Incisions: positive: Drainage (Will remove later today.) General Appearance: positive: No acute distress (Slept very well.) Eyes Bilateral: positive: No lid inflammation, Conjunctivae nml, No scleral icterus ENT: positive: No signs of dehydration Neck: positive: Trachea midline Respiratory: positive: Chest non-tender, Breath sounds nml Cardiovascular: positive: Regular rate & rhythm Abdomen: positive: Nml bowel sounds, No distention Skin: positive: Color nml Extremities: positive: Nml appearance Neurologic/Psychiatric: positive: Oriented x3 Impression/Plan - Problem List Problem List: D2 s/p complex colostomy takedown needing the intervention and concurrent skills of two general surgeons 1) FEN Advance diet and heplock IV.. 2) Pain Celebrex and Ativan have certainly helped her back pain. Already had one walk this morning. 3) DVT prophylaxis TEDs and Venadynes and walking 4) 96 hour certification Currently on schedule to be discharged home in less than 96 hours.
[2018-05-06] MEDS ORDERED: D5NS W/20 MEQ KCL 1,000 ML IV SCH (10:26)
[2018-05-06] MEDS: ATORVASTATIN 10 MG TABLET PO SCH (20:42)
[2018-05-07] MEDS: ACETAMINOPHEN 1,000 MG/100 ML 100 ML IV SCH ×2 (04:40→14:19)
[2018-05-07] MEDS: SODIUM CHLORIDE FLUSH 0.9% 10 ML SYRINGE IVP SCH ×3 (05:46→16:46)
[2018-05-07] MEDS: LEVOTHYROXINE 125 MCG TABLET PO SCH (07:00)
[2018-05-07] MEDS: MIRTAZAPINE 15 MG TABLET PO SCH (10:21)
[2018-05-07] MEDS: NON FORMULARY MED (Vitamin B Complex [Vitamin B Complex] 1 EACH) PO SCH (10:21)
[2018-05-07] MEDS: MULTIVITAMIN TABLET PO SCH (10:21)
[2018-05-07] MEDS: CELECOXIB 100 MG CAPSULE PO SCH (10:23)
[2018-05-07] MEDS ORDERED: LORazepam 0.5 MG TABLET PO PRN (12:20)
[2018-05-07] MEDS ORDERED: oxyCODONE 5 MG TABLET PO PRN (12:20)
[2018-05-07] MEDS: ACETAMINOPHEN 500 MG TABLET PO PRN ×2 (13:33→17:37)
[2018-05-07] MEDS ORDERED: DOCUSATE SODIUM 250 MG CAPSULE PO SCH (16:56)
[2018-05-07] MEDS ORDERED: POLYETHYLENE GLYCOL 3350 17 GM PACKET PO SCH (16:56)
[2018-05-07] MEDS ORDERED: SENNA 8.6 MG TABLET PO SCH (16:57)
--- NOTE | 2018-05-07 18:01 | DISCHARGE SUMMARY ---
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 Now presented to have colostomy reversed. - CONSULTS | PROCEDURES Consultations: None Procedures: Colostomy takedown (Johnna/Justin Paula) - HOSPITAL COURSE Hospital Course: Uncomplicated. Patient with bowel function tolerating general diet. - ALLERGIES Allergies/Adverse Reactions: Allergies Allergy/AdvReac Type Severity Reaction Status Date / Time meloxicam Allergy Intermediate Hives Verified 04/30/18 12:03 Penicillins Allergy Intermediate Hives Verified 04/30/18 12:03 Sulfa (Sulfonamide Allergy Intermediate Hives Verified 04/30/18 12:03 Antibiotics) codeine Allergy Unknown Verified 04/30/18 12:03 latex Allergy Unknown Verified 04/30/18 12:03 nut - unspecified Allergy Anaphylaxis Verified 04/30/18 12:03 - MEDICATIONS Home Medications: Ambulatory Orders Medication Instructions Recorded Confirmed Clopidogrel [Plavix] 75 mg PO DAILY 04/06/14 05/04/18 Levothyroxine Sodium [Synthroid] 125 mcg PO QDAC 04/06/14 05/04/18 Celecoxib [Celebrex] 200 mg PO BID 06/08/16 05/04/18 Docusate Sodium 250Mg Capsule 250 mg PO BID 12/26/17 05/04/18 [Colace 250Mg Capsule] Multivitamin [Theragran] 1 each PO DAILY 12/26/17 05/04/18 Vitamin B Complex 1 each PO DAILY 12/26/17 05/04/18 Atorvastatin Calcium 10 mg PO QPM 05/04/18 05/04/18 Mirtazapine [Mirtazapine] 15 mg PO DAILY 05/04/18 05/04/18 - PHYSICAL EXAM AT DISCHARGE General Appearance: positive: No acute distress Eyes Bilateral: positive: No lid inflammation, Conjunctivae nml, No scleral icterus ENT: positive: No signs of dehydration Neck: positive: Trachea midline Respiratory: positive: Chest non-tender, Breath sounds nml Cardiovascular: positive: Regular rate & rhythm Abdomen: positive: Nml bowel sounds, Other (Dressing removed wick removed. Wound care explained.) Skin: positive: Color nml Extremities: positive: Non-tender, Nml appearance Neurologic/Psychiatric: positive: Oriented x3 - LABS Result Diagrams: 05/05/18 05:58 05/05/18 05:58"
--- NOTE | 2018-05-07 18:06 | Discharge Plan ---
Discharge Plan Disposition: Home, Self Care Condition: Good Prescriptions: oxyCODONE [Roxicodone] 5 mg PO Q4HR PRN #30 tablet PRN Reason: Pain LORazepam [Ativan] 0.5 mg PO Q6H PRN #15 tablet PRN Reason: Anxiety Diet: Regular Activity Restrictions: No Restrictions Shower Restrictions: No Driving Restrictions: Yes (Not until cleared in office.) Assistance Devices: Cane Weight Bearing: Full Weight Additional Instructions or Follow Up instructions: No lifting >15 pounds for 6 weeks. No Smoking: If you smoke, Please STOP! Call for help. Follow-up with: SHANNAN WOLF MD [Primary Care Provider] - Rudy Oropeza MD [Provider Admit Priv/Credential] -
[2018-05-07 18:32] VITALS: BP 125/59
== END 2018-05-07 19:01 | disposition home or self-care (01) | DRG 331 ==
LOC: MS2 06:36
PROVIDERS: ADMIT Surgery; ATTEND Surgery
PROC: 0DBM0ZZ Excision of Descending Colon, Open Approach (ICD-10-PCS; principal; 2018-05-04 07:30)
PROC: 0DJD8ZZ Inspection of Lower Intestinal Tract, Via Natural or Artificial Opening Endoscopic (ICD-10-PCS; 2018-05-04 07:30)
DX: Z43.3 Encounter for attention to colostomy (principal); M19.90 Unspecified osteoarthritis, unspecified site; E03.9 Hypothyroidism, unspecified; Z79.01 Long term (current) use of anticoagulants; Z86.718 Personal history of other venous thrombosis and embolism; Z87.440 Personal history of urinary (tract) infections
CPT/HCPCS: 36415; 80053; 85025

== ENCOUNTER 2018-05-10 15:23 | Outpatient (CLI) | payer MEDICARE, OTHER ==
[2018-05-10 15:46] LABS: BASOPHILS # (AUTO) 0.1 10^3/uL (0.0-0.1); BASOPHILS % (AUTO) 0.8 %; EOSINOPHILS # (AUTO) 0.2 10^3/uL (0.0-0.7); EOSINOPHILS % (AUTO) 3.4 %; HGB - HEMOGLOBIN 9.3 g/dL (12.0-16.0); LYMPHOCYTES # (AUTO) 1.3 10^3/uL (1.5-3.5); LYMPHOCYTES % (AUTO) 20.3 %; MEAN CORPUSCULAR HEMOGLOBIN 32.1 pg (27.0-31.0); MEAN CORPUSCULAR HGB CONC 33.7 g/dL (32.0-36.0); MEAN CORPUSCULAR VOLUME 95.2 fL (81.0-99.0); MEAN PLATELET VOLUME 7.5 fL (7.9-10.8); MONOCYTES # (AUTO) 0.6 10^3/uL (0.0-1.0); MONOCYTES % (AUTO) 8.8 %; NEUTROPHILS # (AUTO) 4.3 10^3/uL (1.5-6.6); NEUTROPHILS % (AUTO) 66.7 %; PLT - PLATELET COUNT 292 10^3/uL (130-450); WHITE BLOOD COUNT 6.5 x10^3/uL (4.8-10.8)
== END 2018-05-10 15:24 | disposition home or self-care (01) ==
LOC: LAB 15:23
PROVIDERS: ATTEND Surgery
DX: D64.9 Anemia, unspecified (principal)
CPT/HCPCS: 36415; 85025

== ENCOUNTER 2018-05-14 15:16 | Outpatient (CLI) | payer MEDICARE, OTHER ==
[2018-05-14 15:42] LABS: BASOPHILS % (AUTO) 0.6 %; EOSINOPHILS # (AUTO) 0.2 10^3/uL (0.0-0.7); EOSINOPHILS % (AUTO) 3.2 %; HGB - HEMOGLOBIN 9.6 g/dL (12.0-16.0); LYMPHOCYTES # (AUTO) 1.1 10^3/uL (1.5-3.5); LYMPHOCYTES % (AUTO) 14.5 %; MEAN CORPUSCULAR HEMOGLOBIN 30.7 pg (27.0-31.0); MEAN CORPUSCULAR HGB CONC 32.8 g/dL (32.0-36.0); MEAN CORPUSCULAR VOLUME 93.6 fL (81.0-99.0); MONOCYTES # (AUTO) 0.6 10^3/uL (0.0-1.0); MONOCYTES % (AUTO) 8.1 %; NEUTROPHILS # (AUTO) 5.6 10^3/uL (1.5-6.6); NEUTROPHILS % (AUTO) 73.6 %; PLT - PLATELET COUNT 323 10^3/uL (130-450); RED BLOOD COUNT 3.14 10^6/uL (4.20-5.40); RED CELL DISTRIBUTION WIDTH 15.4 % (12.0-15.0); WHITE BLOOD COUNT 7.6 x10^3/uL (4.8-10.8)
[2018-05-14 15:58] LABS: CREATININE 0.9 mg/dL (0.4-1.0)
== END 2018-05-14 15:17 | disposition home or self-care (01) ==
LOC: LAB 15:16
PROVIDERS: ATTEND Surgery
DX: R10.9 Unspecified abdominal pain (principal)
CPT/HCPCS: 36415; 82565; 85025

== ENCOUNTER 2018-05-15 08:08 | Outpatient (CLI) | payer MEDICARE, OTHER ==
[2018-05-15] MEDS ORDERED: IOPAMIDOL-300 50 ML VIAL ONE (08:24)
[2018-05-15] MEDS ORDERED: IOPAMIDOL-300 100 ML VIAL ONE (08:24)
[2018-05-15] MEDS ORDERED: IOPAMIDOL-300 50 ML VIAL PO ONE (09:43)
[2018-05-15] MEDS ORDERED: IOPAMIDOL-300 100 ML VIAL IVP ONE (09:43)
--- NOTE | 2018-05-15 15:22 | CT Report ---
Procedure Date: 05/15/2018 Accession Number: [id number] / [id number] Procedure: CT - Abdomen/Pelvis W/ CPT Code: FULL RESULT: EXAM: CT ABDOMEN AND PELVIS EXAM DATE: 05/15/2018 09:39 AM. CLINICAL HISTORY: Abdominal and pelvic pain, colostomy takedown 2 weeks ago COMPARISONS: 12/25/2017. TECHNIQUE: Routine helical CT imaging was performed through the abdomen and pelvis. IV contrast: ISOVUE 300 100mL. Enteric contrast: Yes. Reconstructions: Coronal and sagittal. In accordance with CT protocol optimization, one or more of the following dose reduction techniques were utilized for this exam: automated exposure control, adjustment of mA and/or KV based on patient size, or use of iterative reconstructive technique. FINDINGS: Lung Bases: There is redemonstration of a well-circumscribed nodule in the left lower lobe of the lung. It measures 8 mm (image 11 of series 3). The size and morphology are similar to the previous study. Solid organs: Scattered low-density lesions are again noted with in the liver with this similar appearance to the previous study. Most likely represent cysts or hemangiomas. The largest lesion is located at the junction of segment 4A and 2. It measures approximately 1 cm (image 16 of series 3). The spleen, pancreas, and adrenal glands are without evidence of an enhancing mass. The kidneys are without evidence of a mass or hydronephrosis. Peritoneal Cavity/Bowel: Surgical felisha are noted along the midline consistent with recent colostomy takedown. There are no dilated loops of bowel to suggest the presence of an obstruction. Postoperative changes at the rectosigmoid junction are demonstrated. There is a pessary within the pelvis again noted. Pelvic Organs: No pelvic mass or cyst is identified. Vasculature: There is atherosclerosis of the aorta and iliac arteries without evidence of aneurysmal dilatation. Bones: There are postoperative changes consistent with a left hip arthroplasty. Degenerative changes of the thoracic and lumbar spine are noted. IMPRESSION: Redemonstration of low-density lesions in the liver that most likely represent cysts or hemangiomas with a similar appearance to the previous study. Recent postoperative changes consistent with a colostomy takedown without evidence of an abscess or obstruction. Atherosclerosis of the aorta and iliac arteries. RADIA
== END 2018-05-15 08:09 | disposition home or self-care (01) ==
LOC: DI 08:08
PROVIDERS: ATTEND Surgery
DX: K76.9 Liver disease, unspecified (principal)
CPT/HCPCS: 74177; Q9967

== ENCOUNTER 2018-05-16 16:30 | Outpatient (CLI) | payer MEDICARE, OTHER ==
[2018-05-16 17:42] LABS: BILIRUBIN,URINE NEGATIVE (NEGATIVE); GLUCOSE, URINE (UA) NEGATIVE (NEGATIVE); KETONES,URINE (UA) TRACE mg/dL (NEGATIVE); LEUKOCYTE ESTERASE, URINE MODERATE (NEGATIVE); NITRITE,URINE POSITIVE (NEGATIVE); OCCULT BLOOD,URINE NEGATIVE (NEGATIVE); PH,URINE 5.5 PH (5.0-7.5); PROTEIN,URINE TRACE mg/dL (NEGATIVE); UROBILINOGEN,URINE 0.2 (NORMAL) E.U./dL (NORMAL)
[2018-05-16 18:28] LABS: BACTERIA,URINE Moderate /HPF (None Seen); CLARITY,URINE CLOUDY (CLEAR); RBC,URINE 0-5 /HPF (0-5); SQUAMOUS EPITHELIAL CELL,UR RARE Squamous (<= Few); WBC CLUMPS,URINE PRESENT
== END 2018-05-16 16:31 | disposition home or self-care (01) ==
LOC: LAB 16:30
PROVIDERS: ATTEND Internal Medicine Gastroenterology
DX: R30.0 Dysuria (principal)
CPT/HCPCS: 81001; 87077; 87086; 87181

== ENCOUNTER 2018-05-23 08:00 | Outpatient (CLI) | payer MEDICARE, OTHER ==
[2018-05-23 15:36] LABS: BASOPHILS # (AUTO) 0.1 10^3/uL (0.0-0.1); BASOPHILS % (AUTO) 1.2 %; EOSINOPHILS # (AUTO) 0.2 10^3/uL (0.0-0.7); EOSINOPHILS % (AUTO) 4.3 %; HGB - HEMOGLOBIN 9.7 g/dL (12.0-16.0); LYMPHOCYTES # (AUTO) 1.2 10^3/uL (1.5-3.5); LYMPHOCYTES % (AUTO) 23.1 %; MEAN CORPUSCULAR HEMOGLOBIN 30.1 pg (27.0-31.0); MEAN CORPUSCULAR HGB CONC 32.7 g/dL (32.0-36.0); MEAN CORPUSCULAR VOLUME 92.3 fL (81.0-99.0); MEAN PLATELET VOLUME 7.1 fL (7.9-10.8); MONOCYTES # (AUTO) 0.4 10^3/uL (0.0-1.0); MONOCYTES % (AUTO) 7.3 %; NEUTROPHILS # (AUTO) 3.2 10^3/uL (1.5-6.6); NEUTROPHILS % (AUTO) 64.1 %; PLT - PLATELET COUNT 309 10^3/uL (130-450); RED BLOOD COUNT 3.23 10^6/uL (4.20-5.40); RED CELL DISTRIBUTION WIDTH 15.2 % (12.0-15.0)
[2018-05-23 15:44] LABS: ALBUMIN 3.1 g/dL (3.2-5.5); ALBUMIN/GLOBULIN RATIO 1.1 (1.0-2.2); BILIRUBIN,TOTAL 0.3 mg/dL (0.2-1.0); CALCIUM 7.7 mg/dL (8.5-10.3); CREATININE 0.6 mg/dL (0.4-1.0); TOTAL PROTEIN 5.9 g/dL (6.7-8.2)
== END 2018-05-23 08:01 | disposition home or self-care (01) ==
LOC: LAB.R 08:00
PROVIDERS: ATTEND Internal Medicine Gastroenterology
DX: N39.0 Urinary tract infection, site not specified (principal); D64.9 Anemia, unspecified
CPT/HCPCS: 80053; 85025

== ENCOUNTER 2018-05-23 13:41 | Day surgery (SDC) | payer MEDICARE, OTHER ==
[2018-05-23 14:00] VITALS: BP 130/58
--- NOTE | 2018-05-23 15:16 | XRAY Report ---
Procedure Date: 05/23/2018 Accession Number: [id number] / [id number] Procedure: XR - Chest for Line Placement CPT Code: FULL RESULT: EXAM: Chest for Line Placement DATE: 05/23/2018 2:50 PM CLINICAL HISTORY: post picc placement COMPARISON: 01/03/2018 TECHNIQUE: Single view of the chest. FINDINGS: Lungs/Pleura: No focal opacities evident. No pneumothorax or pleural effusion. Mediastinum: Within exam limitations, cardiomediastinal contour is normal. Other: Right arm PICC extends up to the proximal left jugular vein. IMPRESSION: Right arm PICC extending up the left jugular vein. Discussed with anesthesia on 05/23/2018 at 2:45 PM. AMANDA
--- NOTE | 2018-05-23 15:16 | XRAY Report ---
Procedure Date: 05/23/2018 Accession Number: [id number] / [id number] Procedure: FL - Fluoro Independent Procedure CPT Code: FULL RESULT: EXAM: Fluoro Independent Procedure DATE: 05/23/2018 3:13 PM CLINICAL HISTORY: PICC LINE PLACEMENT TECHNIQUE: Fluoroscopic guidance was provided to anesthesia. 47 seconds of fluoroscopy time was provided. One spot image obtained. COMPARISON: None FINDINGS: Right arm PICC was repositioned by anesthesia under real-time guidance into the distal superior vena cava. IMPRESSION: Right arm PICC terminating in the distal superior vena cava.
[2018-05-23] MEDS: ERTAPENEM 1 GM in SODIUM CHLORIDE 0.9% MINIBAG 100 ML IV ONE (15:25)
[2018-05-24] MEDS: ERTAPENEM 1 GM VIAL ONE (13:08)
== END 2018-05-23 13:42 | disposition home or self-care (01) ==
LOC: SDS 13:41
PROVIDERS: ATTEND Anesthesiology
PROC: 05HN33Z Insertion of Infusion Device into Left Internal Jugular Vein, Percutaneous Approach (ICD-10-PCS; principal; 2018-05-23 14:30)
DX: N39.0 Urinary tract infection, site not specified (principal); D64.9 Anemia, unspecified
CPT/HCPCS: 36569; 76000; 80053; 85025; C1751; J1335; 71045

== ENCOUNTER 2018-08-22 08:11 | Outpatient (CLI) | payer MEDICARE, OTHER ==
[2018-08-22 09:02] LABS: % IRON SATURATION 16 % (20-50); ALBUMIN/GLOBULIN RATIO 1.7 (1.0-2.2); ALKALINE PHOSPHATASE 71 IU/L (42-121); ALT ALANINE AMINOTRANSFERASE 26 IU/L (10-60); AST ASPARTATE AMINOTRANSFERASE 31 IU/L (10-42); BILIRUBIN,TOTAL 0.6 mg/dL (0.2-1.0); BUN - BLOOD UREA NITROGEN 20 mg/dL (6-20); CALCIUM 8.9 mg/dL (8.5-10.3); CARBON DIOXIDE - CO2 28 mmol/L (21-32); CHLORIDE 104 mmol/L (101-111); CHOL/HDL RATIO 2.2 (<4.4); CHOLESTEROL 155 mg/dL; CREATININE 0.5 mg/dL (0.4-1.0); GFR - MDRD 120 (>89); GLUCOSE 94 mg/dL (70-100); HDL CHOLESTEROL 69 mg/dL; IRON 40 ug/dL (28-170); LDL CHOLESTEROL,CALCULATED 78 mg/dL; LDL/HDL RATIO 1.1 (<4.4); SODIUM 135 mmol/L (135-145); TOTAL IRON BINDING CAPACITY 256 ug/dL (250-450); TOTAL PROTEIN 6.3 g/dL (6.7-8.2); TRANSFERRIN 183 mg/dL (192-382); VLDL CHOLESTEROL 8 mg/dL
[2018-08-22 09:13] LABS: THYROID STIMULATING HORMONE 0.52 uIU/mL (0.34-5.60)
== END 2018-08-22 08:12 | disposition home or self-care (01) ==
LOC: LAB 08:11
PROVIDERS: ATTEND Internal Medicine
DX: E55.9 Vitamin D deficiency, unspecified (principal); E03.9 Hypothyroidism, unspecified; R53.83 Other fatigue; D64.9 Anemia, unspecified; R00.2 Palpitations; I31.9 Disease of pericardium, unspecified; R60.0 Localized edema; I89.9 Noninfective disorder of lymphatic vessels and lymph nodes, unspecified; R19.8 Other specified symptoms and signs involving the digestive system and abdomen; E78.5 Hyperlipidemia, unspecified
CPT/HCPCS: 36415; 80053; 80061; 82306; 82607; 82746; 83540; 83721; 84439; 84443; 84466; 84481

== ENCOUNTER 2018-08-28 08:12 | Outpatient (CLI) | payer MEDICARE, OTHER ==
[2018-08-28] MEDS ORDERED: IOPAMIDOL-300 100 ML VIAL ONE (08:30)
[2018-08-28] MEDS ORDERED: IOPAMIDOL-300 50 ML VIAL ONE (08:30)
[2018-08-28] MEDS ORDERED: IOPAMIDOL-300 100 ML VIAL IVP ONE (09:41)
[2018-08-28] MEDS ORDERED: IOPAMIDOL-300 50 ML VIAL PO ONE (09:41)
--- NOTE | 2018-08-28 11:07 | CT Report ---
Reason: NAUSEA,H/O COLECTOMY AND OSTOMY TAKE DOWN Procedure Date: 08/28/2018 Accession Number: [id number] / [id number] Procedure: CT - Abdomen/Pelvis W/ CPT Code: FULL RESULT: EXAM: CT ABDOMEN AND PELVIS EXAM DATE: 08/28/2018 09:39 AM. CLINICAL HISTORY: Nausea, history of colectomy and ostomy take down. COMPARISONS: Abdomen/pelvis w/ 05/15/2018 9:34 AM. TECHNIQUE: Routine helical CT imaging was performed through the abdomen and pelvis. IV contrast: Isovue 300 100 mL. Enteric contrast: Yes. Reconstructions: Coronal and sagittal. In accordance with CT protocol optimization, one or more of the following dose reduction techniques were utilized for this exam: automated exposure control, adjustment of mA and/or KV based on patient size, or use of iterative reconstructive technique. FINDINGS: Lung Bases: Stable well-circumscribed 8 mm nodule at the left lung base. Liver: Redemonstration of hepatic hypodensities which are too small to characterize. Gallbladder/Bile Ducts: Unremarkable. Spleen: Normal. Pancreas: Normal. Adrenal Glands: Normal. Kidneys: Normal. No masses or hydronephrosis. Peritoneal Cavity/Bowel: Status post partial colectomy. No free fluid, free air or adenopathy. No masses or acute inflammatory process. Question bowel thickening in the region of the terminal ileum best seen on images 61 and 62 of series 3, retrospectively also present in April. The appendix is not visualized. Pelvic Organs: A pessary is again noted. The bladder and visualized pelvic organs are otherwise within normal limits. Vasculature: Abdominal atherosclerosis without aneurysm. Bones: Well-demarcated hypodense lesion in L5 with stippled interior is felt to represent a hemangioma. Degenerative retrolisthesis of L1 on L2, grade 1, in the setting of multilevel degenerative disease. Other: None. IMPRESSION: Question thickening of the distal ileum. Please correlate this to endoscopic findings and possible history of inflammatory bowel disease versus malignancy. CRITICAL RESULT: The findings were discussed with Melony Hernandez on behalf of Dr. Yates on 08/28/2018 at 10:45 AM. AMANDA
== END 2018-08-28 08:13 | disposition home or self-care (01) ==
LOC: DI 08:12
PROVIDERS: ATTEND Internal Medicine
DX: R11.0 Nausea (principal)
CPT/HCPCS: 74177; Q9967

== ENCOUNTER 2018-09-19 15:21 | Outpatient (CLI) | payer MEDICARE, OTHER ==
[2018-09-19 15:54] LABS: BASOPHILS % (AUTO) 0.6 %; EOSINOPHILS # (AUTO) 0.1 10^3/uL (0.0-0.7); EOSINOPHILS % (AUTO) 1.3 %; HGB - HEMOGLOBIN 13.5 g/dL (12.0-16.0); LYMPHOCYTES # (AUTO) 1.3 10^3/uL (1.5-3.5); LYMPHOCYTES % (AUTO) 23.4 %; MEAN CORPUSCULAR HEMOGLOBIN 30.7 pg (27.0-31.0); MEAN CORPUSCULAR HGB CONC 32.9 g/dL (32.0-36.0); MEAN CORPUSCULAR VOLUME 93.3 fL (81.0-99.0); MEAN PLATELET VOLUME 8.2 fL (7.9-10.8); MONOCYTES # (AUTO) 0.4 10^3/uL (0.0-1.0); MONOCYTES % (AUTO) 7.7 %; NEUTROPHILS # (AUTO) 3.7 10^3/uL (1.5-6.6); PLT - PLATELET COUNT 234 10^3/uL (130-450); RED BLOOD COUNT 4.39 10^6/uL (4.20-5.40); RED CELL DISTRIBUTION WIDTH 16.9 % (12.0-15.0); WHITE BLOOD COUNT 5.5 x10^3/uL (4.8-10.8)
== END 2018-09-19 15:22 | disposition home or self-care (01) ==
LOC: LAB 15:21
PROVIDERS: ATTEND Internal Medicine
DX: D64.9 Anemia, unspecified (principal)
CPT/HCPCS: 36415; 85025

== ENCOUNTER 2018-09-24 08:01 | Day surgery (SDC) | payer MEDICARE, OTHER ==
[2018-09-24] MEDS ORDERED: LACTATED RINGERS 1,000 ML IV ONE (08:06)
[2018-09-24] MEDS ORDERED: fentaNYL 100 MCG/2 ML VIAL IVP ONE (09:06)
[2018-09-24] MEDS ORDERED: MIDAZOLAM 2 MG/2 ML VIAL IVP ONE (09:06)
[2018-09-24 10:45] VITALS: BP 107/72
== END 2018-09-24 08:02 | disposition home or self-care (01) ==
LOC: SDS 08:01
PROVIDERS: ATTEND Surgery
PROC: 0DBB8ZZ Excision of Ileum, Via Natural or Artificial Opening Endoscopic (ICD-10-PCS; principal; 2018-09-24 09:00)
DX: K63.89 Other specified diseases of intestine (principal); K62.4 Stenosis of anus and rectum; D13.39 Benign neoplasm of other parts of small intestine; K43.2 Incisional hernia without obstruction or gangrene; K64.8 Other hemorrhoids; Z98.0 Intestinal bypass and anastomosis status
CPT/HCPCS: 45385; J7120

== ENCOUNTER 2018-12-19 19:46 | Outpatient (CLI) | payer MEDICARE, OTHER ==
--- NOTE | 2018-12-20 10:13 | Ultrasound Report ---
Reason: POSTMENOPAUSAL VAGINAL BLEEDING Procedure Date: 12/19/2018 Accession Number: [id number] / [id number] Procedure: US - Pelvic w/Transvaginal CPT Code: FULL RESULT: EXAM: PELVIC ULTRASOUND EXAM DATE: 12/19/2018 08:26 PM. CLINICAL HISTORY: POSTMENOPAUSAL VAGINAL BLEEDING. COMPARISON: None. TECHNIQUE: Realtime transabdominal pelvic scan performed to identify the uterus and adnexa and as an overview of other pelvic structures, followed by transvaginal scan to provide greater detail of the uterus and adnexa, with static image documentation. FINDINGS: Uterus: 5.8 x 5.1 x 2.7 cm, volume 41.5 cc. Anteverted position. Normal overall size and echotexture. Masses: None. Endometrium: Extremely thin endometrium difficult to measure accurately. Fluid is present in the endometrial canal. No mass, polyp or endometrial invasion is noted. Cervix: No mass. Patient has a pessary. Right Ovary: Normal echotexture and blood flow. Left Ovary: Normal echotexture and blood flow. Free Fluid: None. Other: None. IMPRESSION: 1. No uterine mass. 2. Neither ovary seen. Both adnexa are normal. 3. Fluid is present in the endometrial canal. No mass, polyp or endometrial invasion. Endometrium is markedly thinned and difficult to measure accurately. No evidence of endometrial carcinoma or hyperplasia. These findings may represent endometrial atrophy in a postmenopausal woman with dysfunctional uterine bleeding. If symptoms persist, patient may benefit from endometrial sampling. RADIA
== END 2018-12-19 19:47 | disposition home or self-care (01) ==
LOC: DI 19:46
PROVIDERS: ATTEND Obstetrics & Gynecology
DX: N95.0 Postmenopausal bleeding (principal)
CPT/HCPCS: 76830; 76856

== ENCOUNTER 2019-02-19 18:31 | Emergency (ER) | payer MEDICARE, OTHER ==
--- NOTE | 2019-02-19 20:44 | ED Physician Documentation ---
PD HPI OPHTHO - Stated complaint Stated Complaint: LY EYE FOB - Chief complaint Chief Complaint: Heent - History obtained from History obtained from: Patient - History of Present Illness Timing - onset: Today Timing - duration: Hours Timing - details: Abrupt onset Location: Left Quality / character: Aching Associated symptoms: FB sensation (awoke from nap with feeling of FB left eye. Tried irrigating it but still hurts. Feels like it is under the lid.) Contributing factors: FB (not aware of what is in eye.) Similar symptoms before: Has not had sx before Recently seen: Not recently seen Review of Systems Eyes: reports: Irritation. denies: Loss of vision, Decreased vision, Photophobia, Discharge Nose: denies: Rhinorrhea / runny nose, Congestion Throat: denies: Sore throat Respiratory: denies: Cough PD PAST MEDICAL HISTORY - Past Medical History Past Medical History: Yes Cardiovascular: High cholesterol, Deep vein thrombosis, Murmur Respiratory: None Neuro: None Endocrine/Autoimmune: HyPOthyroidism GI: GERD, Diverticulitis, Other KEG WASHER: None : None HEENT: None Psych: None Musculoskeletal: Osteoarthritis, Chronic back pain, Other Derm: Other - Past Surgical History Past Surgical History: Yes General: Bowel surgery, Other Ortho: Hip replacement, Other HEENT: Tonsil/Adenoidectomy Derm: Skin cancer surgery - Present Medications Home Medications: Ambulatory Orders Medication Instructions Recorded Confirmed Clopidogrel [Plavix] 75 mg PO DAILY 04/06/14 09/24/18 Levothyroxine Sodium [Synthroid] 125 mcg PO QDAC 04/06/14 09/24/18 Celecoxib [Celebrex] 200 mg PO BID 06/08/16 09/24/18 Multivitamin [Theragran] 1 each PO DAILY 12/26/17 09/24/18 Vitamin B Complex 1 each PO DAILY 12/26/17 09/24/18 Atorvastatin Calcium 10 mg PO QPM 05/04/18 09/24/18 - Allergies Allergies/Adverse Reactions: Allergies Allergy/AdvReac Type Severity Reaction Status Date / Time meloxicam Allergy Intermediate Hives Verified 02/19/19 18:59 Penicillins Allergy Intermediate Hives Verified 02/19/19 18:59 Sulfa (Sulfonamide Allergy Intermediate Hives Verified 02/19/19 18:59 Antibiotics) codeine Allergy Unknown Verified 02/19/19 18:59 latex Allergy Unknown Verified 02/19/19 18:59 nut - unspecified Allergy Anaphylaxis Verified 02/19/19 18:59 - Social History Does the pt smoke?: No Smoking Status: Never smoker Does the pt drink ETOH?: Yes ETOH Use: Wine Does the pt have substance abuse?: No - Immunizations Immunizations are current?: Yes Immunizations: TDAP current <10years - POLST Patient has POLST: No POLST Status: Full Code PD ED PE NORMAL - Vitals Vital signs reviewed: Yes - General General: Alert and oriented X 3, No acute distress, Well developed/nourished - HEENT HEENT: PERRL, EOMI (feels much better with alcaine drops. ) PD ED PE EXPANDED - Eyes Eyes: PERRL, EOMI, Eyelid embedded FB (underside of the eyelid left eye. Removed with qtip easily. ), Corneal abrasion, Fluorescein uptake (small area at edge of iris at 2 o'clock position. superficial uptake. ), Anterior chambers clear. No: Corneal ulcer Results - Vitals Vitals: Oxygen O2 Source Room air PD MEDICAL DECISION MAKING - ED course Complexity details: considered differential (small speck of a FB under eyelid, removed with cotton tip applicator. There is some corneal abrasion superficial. ), d/w patient Departure - Departure Disposition: 01 Home, Self Care Clinical Impression: Corneal foreign body Qualifiers: Encounter type: initial encounter Laterality: left Qualified Code(s): T15.02XA - Foreign body in cornea, left eye, initial encounter Corneal abrasion Qualifiers: Encounter type: initial encounter Laterality: left Qualified Code(s): S05.02XA - Injury of conjunctiva and corneal abrasion without foreign body, left eye, initial encounter Condition: Stable Record reviewed to determine appropriate education?: Yes Instructions: ED Eye Injury Corneal Abrasion Follow-Up: SHANNAN WOLF MD [Primary Care Provider] - Comments: Rest your eye at home overnight. Tylenol if needed for pains. You can use the numbing eyedrops periodically overnight but did not be out in about where you could get other things in your eye and not be aware of it. Do not use them beyond a day. If you are still having discomfort in your eye after a day you need to have it rechecked with us or your primary care or an waste specialist as an abrasion like this should be healed up pretty well within 1-2 days. Return if signs of infection. Expect a little bit of crusting in the morning. Discharge Date/Time: 02/19/19 21:24
[2019-02-19] MEDS ORDERED: ACETAMINOPHEN 500 MG TABLET PO STA (21:06)
[2019-02-19 21:17] VITALS: BP 120/67
== END 2019-02-19 21:24 | disposition home or self-care (01) ==
LOC: ED 18:31
DX: T15.02XA Foreign body in cornea, left eye, initial encounter (principal); X58.XXXA Exposure to other specified factors, initial encounter; E78.00 Pure hypercholesterolemia, unspecified; E03.9 Hypothyroidism, unspecified; Z86.718 Personal history of other venous thrombosis and embolism
CPT/HCPCS: 99283; A9270

== ENCOUNTER 2019-03-03 07:57 | Outpatient (CLI) | payer MEDICARE, OTHER ==
--- NOTE | 2019-03-05 14:24 | Ultrasound Report ---
Reason: THYROID NODULE Procedure Date: 03/03/2019 Accession Number: [id number] / [id number] Procedure: US - Head or Neck Soft Tissue CPT Code: FULL RESULT: EXAM: THYROID ULTRASOUND EXAM DATE: 03/03/2019 08:30 AM. CLINICAL HISTORY: Thyroid nodule. COMPARISON: None. TECHNIQUE: Real time sonographic imaging of the thyroid was performed by the strip presser. Multiple nutrition representative static images were saved for review. FINDINGS: THYROID GLAND: Right Lobe: 3.9 x 1.0 x 1.3 cm, volume 2.6 cc. Normal background echotexture. Right Lobe Nodules: The superior pole contains a 1.0 x 0.5 x 0.9 cm hypoechoic vascular nodule and the inferior pole contains a 1.3 x 1.0 x 1.1 cm heterogeneous solid vascular nodule. Left Lobe: 4.4 x 2.0 x 2.1 cm, volume 9.6 cc. Normal background echotexture. Left Lobe Nodules: Dominant mid and inferior pole 2.0 x 2.5 x 1.9 cm heterogeneous solid vascular nodule. Isthmus: 0.3 cm AP. Isthmic Nodules: None. LYMPH NODES: No adenopathy demonstrated in the central or lateral compartment. OTHER: None. IMPRESSION: Recommend fine-needle aspiration of the dominant left thyroid nodule as well as of the 1.3 cm inferior pole nodule of the right thyroid lobe. Management recommendations are based on 2015 [place] [employer] Management Guidelines for Adult Patients with Thyroid Nodules and Differentiated Thyroid Cancer. RADIA
== END 2019-03-03 07:58 | disposition home or self-care (01) ==
LOC: DI 07:57
PROVIDERS: ATTEND Student in an Organized Health Care Education/Training Program
DX: E04.2 Nontoxic multinodular goiter (principal)
CPT/HCPCS: 76536

== ENCOUNTER 2019-05-12 08:47 | Outpatient (CLI) | payer MEDICARE, OTHER ==
[2019-05-12 09:47] LABS: BASOPHILS % (AUTO) 0.5 %; EOSINOPHILS # (AUTO) 0.1 10^3/uL (0.0-0.7); EOSINOPHILS % (AUTO) 3.4 %; HGB - HEMOGLOBIN 13.3 g/dL (12.0-16.0); LYMPHOCYTES # (AUTO) 1.1 10^3/uL (1.5-3.5); LYMPHOCYTES % (AUTO) 32.5 %; MEAN CORPUSCULAR HGB CONC 32.5 g/dL (32.0-36.0); MEAN PLATELET VOLUME 8.5 fL (7.9-10.8); MONOCYTES # (AUTO) 0.3 10^3/uL (0.0-1.0); MONOCYTES % (AUTO) 9.9 %; NEUTROPHILS # (AUTO) 1.9 10^3/uL (1.5-6.6); NEUTROPHILS % (AUTO) 53.7 %; PLT - PLATELET COUNT 205 10^3/uL (130-450); RED CELL DISTRIBUTION WIDTH 14.5 % (12.0-15.0); WHITE BLOOD COUNT 3.4 x10^3/uL (4.8-10.8)
[2019-05-12 10:07] LABS: % IRON SATURATION 27 % (20-50); ALBUMIN 3.7 g/dL (3.2-5.5); ALBUMIN/GLOBULIN RATIO 1.4 (1.0-2.2); ALKALINE PHOSPHATASE 74 IU/L (42-121); ALT ALANINE AMINOTRANSFERASE 29 IU/L (10-60); AST ASPARTATE AMINOTRANSFERASE 32 IU/L (10-42); BILIRUBIN,TOTAL 0.7 mg/dL (0.2-1.0); BUN - BLOOD UREA NITROGEN 26 mg/dL (6-20); CALCIUM 9.4 mg/dL (8.5-10.3); CARBON DIOXIDE - CO2 26 mmol/L (21-32); CHLORIDE 104 mmol/L (101-111); CHOL/HDL RATIO 2.9 (<4.4); CHOLESTEROL 144 mg/dL; CREATININE 0.6 mg/dL (0.4-1.0); GFR - MDRD 97 (>89); GLUCOSE 99 mg/dL (70-100); HDL CHOLESTEROL 49 mg/dL; IRON 69 ug/dL (28-170); LDL CHOLESTEROL,CALCULATED 85 mg/dL; LDL/HDL RATIO 1.7 (<4.4); SODIUM 139 mmol/L (135-145); TOTAL IRON BINDING CAPACITY 256 ug/dL (250-450); TOTAL PROTEIN 6.4 g/dL (6.7-8.2); TRANSFERRIN 183 mg/dL (192-382); VLDL CHOLESTEROL 10 mg/dL
[2019-05-12 10:18] LABS: THYROID STIMULATING HORMONE < 0.08 uIU/mL (0.34-5.60)
[2019-05-12 10:21] LABS: FREE T4 (FREE THYROXINE) 1.25 ng/dL (0.58-1.64)
[2019-05-12 10:24] LABS: FERRITIN 57.9 ng/mL (11.0-306.8)
== END 2019-05-12 08:48 | disposition home or self-care (01) ==
LOC: LAB 08:47
PROVIDERS: ATTEND Internal Medicine
DX: E78.2 Mixed hyperlipidemia (principal); E03.9 Hypothyroidism, unspecified; R53.83 Other fatigue
CPT/HCPCS: 36415; 80053; 80061; 82728; 83540; 83721; 84439; 84443; 84466; 84481; 85025

== ENCOUNTER 2019-05-24 08:47 | Outpatient (CLI) | payer MEDICARE, OTHER ==
[2019-05-24 10:28] LABS: THYROID STIMULATING HORMONE < 0.08 uIU/mL (0.34-5.60)
[2019-05-24 10:29] LABS: FREE T4 (FREE THYROXINE) 1.08 ng/dL (0.58-1.64)
== END 2019-05-24 08:48 | disposition home or self-care (01) ==
LOC: LAB 08:47
PROVIDERS: ATTEND Internal Medicine
DX: R79.89 Other specified abnormal findings of blood chemistry (principal); R94.6 Abnormal results of thyroid function studies; D72.9 Disorder of white blood cells, unspecified
CPT/HCPCS: 81599; 84439; 84443; 84445; 84481; 86376

== ENCOUNTER 2019-05-25 09:22 | Outpatient (CLI) | payer MEDICARE, OTHER ==
[2019-05-25 09:48] LABS: BASOPHILS % (AUTO) 0.6 %; EOSINOPHILS # (AUTO) 0.1 10^3/uL (0.0-0.7); EOSINOPHILS % (AUTO) 3.7 %; HGB - HEMOGLOBIN 13.3 g/dL (12.0-16.0); LYMPHOCYTES # (AUTO) 1.3 10^3/uL (1.5-3.5); LYMPHOCYTES % (AUTO) 35.6 %; MEAN CORPUSCULAR HEMOGLOBIN 29.6 pg (27.0-31.0); MEAN CORPUSCULAR VOLUME 92.4 fL (81.0-99.0); MEAN PLATELET VOLUME 10.1 fL (7.9-10.8); MONOCYTES # (AUTO) 0.4 10^3/uL (0.0-1.0); MONOCYTES % (AUTO) 11.4 %; NEUTROPHILS # (AUTO) 1.7 10^3/uL (1.5-6.6); NEUTROPHILS % (AUTO) 48.4 %; PLT - PLATELET COUNT 196 10^3/uL (130-450); RED BLOOD COUNT 4.49 10^6/uL (4.20-5.40); RED CELL DISTRIBUTION WIDTH 14.1 % (12.0-15.0); WHITE BLOOD COUNT 3.5 x10^3/uL (4.8-10.8)
== END 2019-05-25 09:23 | disposition home or self-care (01) ==
LOC: LAB 09:22
PROVIDERS: ATTEND Internal Medicine
DX: R79.89 Other specified abnormal findings of blood chemistry (principal); D72.9 Disorder of white blood cells, unspecified; R94.6 Abnormal results of thyroid function studies
CPT/HCPCS: 36415; 85025

== ENCOUNTER 2019-09-28 13:10 | Outpatient (CLI) | payer MEDICARE, OTHER ==
--- NOTE | 2019-09-30 09:39 | Ultrasound Report ---
Reason: THYROID NODULE Procedure Date: 09/28/2019 Accession Number: [id number] / [id number] Procedure: US - Head or Neck Soft Tissue CPT Code: Final Report FULL RESULT: EXAM: THYROID ULTRASOUND EXAM DATE: 09/28/2019 01:53 PM. CLINICAL HISTORY: Thyroid nodules. Follow-up. COMPARISON: HEAD OR NECK SOFT TISSUE 03/03/2019. TECHNIQUE: Real time sonographic imaging of the thyroid was performed by the rugby union footballer. Multiple agency sales representative static images were saved for review. FINDINGS: THYROID GLAND: Right Lobe: 3.2 x 1.3 x 1.5 cm, volume 3.3 cc. Heterogeneous echotexture. Lobular contour. Right Lobe Nodules: 1. Mid inferior lobular, solid, heterogeneous, vascular small cystic center, 1.2 x 1.2 x 1.2 cm, previously 1.3 x 1 x 1.1 cm. Superior nodule not as well delineated on the current study. Left Lobe: 5 x 2.6 x 2.4 cm, volume 16.3 cc. Heterogeneous echotexture. Lobular contour. Left Lobe Nodules: 1. Solid mid inferior mildly vascular, 2.9 x 2.4 x 2.6 cm, previously 2 x 2.5 x 1.9 cm. Isthmus: 0.5 cm AP. Isthmic Nodules: 1. Hypoechoic mildly vascular, 0.8 x 0.4 x 0.6 cm, previously 0.8 x 0.8 x 0.3 cm. LYMPH NODES: No enlarged lymph nodes are seen, the largest on the right at level II measuring 0.4 cm in short axis dimension and the largest on the left at level II measuring 0.4 cm in short axis dimension. OTHER: Some technical difficulty due to constant swallowing, coughing and breathing motion. IMPRESSION: 1. Multinodular thyroid gland with the largest nodules on the right measuring 1.3 cm and on the left measuring 2.9 cm of which this particular nodule has increased in size on the left. If not previously performed, fine needle aspiration biopsy of both nodules is recommended, in particular the left due to the interval increase in size. Management recommendations are based on 2015 [place] [employer] Management Guidelines for Adult Patients with Thyroid Nodules and Differentiated Thyroid Cancer. RADIA
== END 2019-09-28 13:11 | disposition home or self-care (01) ==
LOC: DI 13:10
PROVIDERS: ATTEND Student in an Organized Health Care Education/Training Program
DX: E04.2 Nontoxic multinodular goiter (principal)
CPT/HCPCS: 76536

== ENCOUNTER 2020-02-03 11:06 | Emergency (ER) | payer MEDICARE, OTHER ==
[2020-02-03] MEDS ORDERED: DOXYCYCLINE 100 MG TABLET PO STA (12:22)
[2020-02-03] MEDS ORDERED: BUFFERED LIDOCAINE 10 ML SYRINGE SUBQ STA (12:22)
--- NOTE | 2020-02-03 12:24 | ED Physician Documentation ---
PD HPI UPPER EXT INJURY - Stated complaint Stated Complaint: R HAND INJ - Chief complaint Chief Complaint: Ext Problem - History obtained from History obtained from: Patient - History of Present Illness Location: Right (About 5 days ago she thinks she got a thorn in the dorsum of her right hand well working with her roses at home. Maybe 2 days later started to get inflamed. She thinks there is still with slight thorn in there but now she has a lot of hand swelling over the dorsum of the hand. Tetanus is up-to-date, and she denies any systemic symptoms such as fevers or chills.) Review of Systems Ten Systems: 10 systems reviewed and negative Constitutional: denies: Fever, Chills Cardiac: denies: Chest pain / pressure, Palpitations Respiratory: denies: Dyspnea, Cough GI: denies: Abdominal Pain PD PAST MEDICAL HISTORY - Past Medical History Cardiovascular: High cholesterol, Deep vein thrombosis, Murmur Respiratory: None Neuro: None Endocrine/Autoimmune: HyPOthyroidism GI: GERD, Diverticulitis, Other GRADE RECORDER: None : None HEENT: None Psych: None Musculoskeletal: Osteoarthritis, Chronic back pain, Other Derm: Other - Past Surgical History Past Surgical History: Yes General: Bowel surgery, Other Ortho: Hip replacement, Other HEENT: Tonsil/Adenoidectomy Derm: Skin cancer surgery - Present Medications Home Medications: Ambulatory Orders Medication Instructions Recorded Confirmed Clopidogrel [Plavix] 75 mg PO 04/06/14 09/24/18 Celecoxib [Celebrex] 200 mg PO BID 06/08/16 09/24/18 Multivitamin [Theragran] 1 each PO DAILY 12/26/17 09/24/18 Vitamin B Complex 1 each PO DAILY 12/26/17 09/24/18 Atorvastatin Calcium 10 mg PO QPM 05/04/18 09/24/18 Doxycycline Hyclate 100 mg PO BID #20 capsule 02/03/20 - Allergies Allergies/Adverse Reactions: Allergies Allergy/AdvReac Type Severity Reaction Status Date / Time meloxicam Allergy Intermediate Hives Verified 02/19/19 18:59 Penicillins Allergy Intermediate Hives Verified 02/19/19 18:59 Sulfa (Sulfonamide Allergy Intermediate Hives Verified 02/19/19 18:59 Antibiotics) codeine Allergy Unknown Verified 02/19/19 18:59 latex Allergy Unknown Verified 02/19/19 18:59 nut - unspecified Allergy Anaphylaxis Verified 02/19/19 18:59 - Social History Does the pt smoke?: No Smoking Status: Never smoker Does the pt drink ETOH?: Yes Does the pt have substance abuse?: No - Immunizations Immunizations are current?: Yes Immunizations: TDAP current <10years - POLST Patient has POLST: No POLST Status: Full Code PD ED PE NORMAL - Vitals Vital signs reviewed: Yes - General General: Alert and oriented X 3, No acute distress - Extremities Extremities: Other (There appears to be a tiny puncture wound on the dorsum of the hand near the third MCP joint with surrounding cellulitis of the dorsum of the hand and some swelling but no limited range of motion or neurovascular compromise in the digits.) - Neuro Neuro: Alert and oriented X 3, Normal speech Results - Vitals Vitals: Vital Signs - 24 hr 02/03/20 02/03/20 11:21 13:06 Temperature 36.3 C L 36.3 C L Heart Rate 67 52 L Respiratory 16 16 Rate Blood Pressure 110/57 L 115/59 L O2 Saturation 98 96 Oxygen O2 Source Room air Procedures - General procedure General procedure: Incision and drainage of foreign body. After verbal informed consent the dorsum of the right hand was prepped with Hibiclens and draped. She was infiltrated locally with about 3 mL of buffered lidocaine. A tiny incision was made with a 15 scalpel and I was able to find a tiny wendy-rhon. There is no purulent material to culture. The wound was small enough that it did not require suturing. She tolerated very well. Departure - Departure Disposition: 01 Home, Self Care Clinical Impression: Cellulitis of right hand Foreign body of right hand Qualifiers: Encounter type: initial encounter Qualified Code(s): S60.551A - Superficial foreign body of right hand, initial encounter Condition: Good Record reviewed to determine appropriate education?: Yes Instructions: ED Infec Skin Cellulitis Prescriptions: Doxycycline Hyclate 100 mg PO BID #20 capsule Comments: Return if worsening or if you run a fever. Or in 2 days if not improving. Discharge Date/Time: 02/03/20 13:18
[2020-02-03 13:06] VITALS: BP 115/59
== END 2020-02-03 13:18 | disposition home or self-care (01) ==
LOC: ED 11:06
DX: S61.441A Puncture wound with foreign body of right hand, initial encounter (principal); W45.8XXA Other foreign body or object entering through skin, initial encounter; Y93.H2 Activity, gardening and landscaping; Y92.007 Garden or yard of unspecified non-institutional (private) residence as the place of occurrence of the external cause; L03.113 Cellulitis of right upper limb; Z88.0 Allergy status to penicillin; Z88.2 Allergy status to sulfonamides; Z86.718 Personal history of other venous thrombosis and embolism; Z79.02 Long term (current) use of antithrombotics/antiplatelets
CPT/HCPCS: 10120; 99283; A9270

== ENCOUNTER 2020-02-06 10:19 | Emergency (ER) | payer MEDICARE, OTHER ==
[2020-02-06] MEDS ORDERED: VANCOMYCIN INJ 1 GM in SODIUM CHLORIDE 0.9% 500 ML IV STA (10:33)
[2020-02-06] MEDS ORDERED: BUFFERED LIDOCAINE 10 ML SYRINGE SUBQ STA (10:33)
--- NOTE | 2020-02-06 10:34 | ED Physician Documentation ---
PD HPI UPPER EXT INJURY - Stated complaint Stated Complaint: RT HAND PX - Chief complaint Chief Complaint: Ext Problem - History obtained from History obtained from: Patient (This is a dian and pretty healthy 79-year-old woman who is I saw the other day for hand cellulitis related to a thorn in the dorsum of her right hand. The thorn was removed and she was put on doxycycline but has persistent pain and swelling in that area without fevers. 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 : None HEENT: None Psych: None Musculoskeletal: Osteoarthritis, Chronic back pain, Other Derm: Other - Past Surgical History Past Surgical History: Yes General: Bowel surgery, Other Ortho: Hip replacement, Other HEENT: Tonsil/Adenoidectomy Derm: Skin cancer surgery - Present Medications Home Medications: Ambulatory Orders Medication Instructions Recorded Confirmed Clopidogrel [Plavix] 75 mg PO 04/06/14 09/24/18 Celecoxib [Celebrex] 200 mg PO BID 06/08/16 09/24/18 Multivitamin [Theragran] 1 each PO DAILY 12/26/17 09/24/18 Vitamin B Complex 1 each PO DAILY 12/26/17 09/24/18 Atorvastatin Calcium 10 mg PO QPM 05/04/18 09/24/18 Doxycycline Hyclate 100 mg PO BID #20 capsule 02/03/20 Clindamycin HCl [Clindamycin 300MG 300 mg PO Q6H #28 capsule 02/06/20 CAP] - Allergies Allergies/Adverse Reactions: Allergies Allergy/AdvReac Type Severity Reaction Status Date / Time meloxicam Allergy Intermediate Hives Verified 02/06/20 10:34 Penicillins Allergy Intermediate Hives Verified 02/06/20 10:34 Sulfa (Sulfonamide Allergy Intermediate Hives Verified 02/06/20 10:34 Antibiotics) codeine Allergy Unknown Verified 02/06/20 10:34 latex Allergy Unknown Verified 03/12/20 10:34 nut - unspecified Allergy Anaphylaxis Verified 02/06/20 10:34 - Social History Does the pt smoke?: No Smoking Status: Never smoker Does the pt drink ETOH?: Yes Does the pt have substance abuse?: No - Immunizations Immunizations are current?: Yes Immunizations: TDAP current <10years - POLST Patient has POLST: No POLST Status: Full Code PD ED PE NORMAL - Vitals Vital signs reviewed: Yes - General General: Alert and oriented X 3, No acute distress - Cardiac Cardiac: RRR, No murmur - Respiratory Respiratory: No respiratory distress, Clear bilaterally - Abdomen Abdomen: Soft, Non tender - Derm Derm: Normal color, Warm and dry - Extremities Extremities: Other (Cellulitis appears a little less red than the other day but she does have more swelling to the dorsum of the right hand. Still full range of motion.) - Neuro Neuro: Alert and oriented X 3, Normal speech - Psych Psych: Normal mood, Normal affect Results - Vitals Vitals: Vital Signs - 24 hr 02/06/20 10:24 Temperature 36.3 C L Heart Rate 73 Respiratory 16 Rate Blood Pressure 110/59 L O2 Saturation 98 Oxygen O2 Source Room air - Labs Labs: Laboratory Tests 02/06/20 02/06/20 10:41 10:41 WBC 6.0 RBC 4.34 Hgb 13.2 Hct 42.2 MCV 97.2 MCH 30.4 MCHC 31.3 L RDW 13.0 Plt Count 195 MPV 10.0 Neut # (Auto) 4.1 Lymph # (Auto) 1.3 L Stanton # (Auto) 0.5 Eos # (Auto) 0.1 Baso # (Auto) 0.0 Absolute Nucleated RBC 0.00 Nucleated RBC % 0.0 Sodium 137 Potassium 4.4 Chloride 102 Carbon Dioxide 28 Anion Gap 7.0 BUN 29 H Creatinine 0.8 Estimated GFR (MDRD) 70 L Glucose 65 L Calcium 9.3 Procedures - General procedure General procedure: Given the concern for persistent foreign body or development of fluid collection about a 2 cm longitudinal laceration was made over the most swollen part at and just proximal to the third MCP after chlorhexidine prep And local infiltration with buffered lidocaine. There was a little serous fluid in there but I could not really find any pus, the area was explored and no foreign body or splinter was identified. It was closed with 5 x 4-0 nylon sutures in simple interrupted fashion. PD MEDICAL DECISION MAKING - ED course ED course: 79-year-old woman with right hand cellulitis after getting a thorn in there. The wound was opened and explored and I could not find a foreign body. A culture was sent. It was closed and she was given vancomycin here and we will change her antibiotics and advised her to return to the ED in 2 days for wound check. Departure - Departure Disposition: 01 Home, Self Care Clinical Impression: Cellulitis of right hand Condition: Good Record reviewed to determine appropriate education?: Yes Instructions: Cellulitis Dc Prescriptions: Clindamycin HCl [Clindamycin 300MG CAP] 300 mg PO Q6H #28 capsule Comments: Stop your current antibiotic, doxycycline and substitute the new clindamycin instead. Return for new or worsening symptoms and return in 2 days for a wound check. Also plan to have your sutures out with your primary care physician in 10 to 14 days.
[2020-02-06 10:56] LABS: BASOPHILS % (AUTO) 0.5 %; EOSINOPHILS # (AUTO) 0.1 10^3/uL (0.0-0.7); EOSINOPHILS % (AUTO) 2.3 %; HGB - HEMOGLOBIN 13.2 g/dL (12.0-16.0); LYMPHOCYTES # (AUTO) 1.3 10^3/uL (1.5-3.5); LYMPHOCYTES % (AUTO) 20.9 %; MEAN CORPUSCULAR HEMOGLOBIN 30.4 pg (27.0-31.0); MEAN CORPUSCULAR HGB CONC 31.3 g/dL (32.0-36.0); MEAN CORPUSCULAR VOLUME 97.2 fL (81.0-99.0); MONOCYTES # (AUTO) 0.5 10^3/uL (0.0-1.0); MONOCYTES % (AUTO) 8.6 %; NEUTROPHILS # (AUTO) 4.1 10^3/uL (1.5-6.6); NEUTROPHILS % (AUTO) 67.4 %; PLT - PLATELET COUNT 195 10^3/uL (130-450); RED BLOOD COUNT 4.34 10^6/uL (4.20-5.40)
[2020-02-06 11:03] LABS: CALCIUM 9.3 mg/dL (8.5-10.3); CREATININE 0.8 mg/dL (0.4-1.0)
[2020-02-06 12:55] VITALS: BP 116/66
== END 2020-02-06 12:56 | disposition home or self-care (01) ==
LOC: ED 10:19
DX: L03.113 Cellulitis of right upper limb (principal); Z88.0 Allergy status to penicillin; Z88.2 Allergy status to sulfonamides; Z86.718 Personal history of other venous thrombosis and embolism; Z79.02 Long term (current) use of antithrombotics/antiplatelets
CPT/HCPCS: 36415; 80048; 85025; 87070; 87205; 96374; 99284; J3370

== ENCOUNTER 2020-02-09 21:00 | Emergency (ER) | payer MEDICARE, OTHER ==
[2020-02-09 21:13] VITALS: BP 125/70
--- NOTE | 2020-02-09 21:29 | ED Physician Documentation ---
History of Present Illness - Stated complaint Stated Complaint: WOUND CHECK - Chief complaint Chief Complaint: General - History obtained from History obtained from: Patient - History of Present Illness Timing: How many days ago (5) Pain level max: 2 Pain level now: 0 - Additonal information Additional information: Patient here for a wound check. Last seen 2 days ago, she states that the redness and swelling have significantly decreased. No fevers. Nothing makes it better or worse. She is still on the antibiotics. 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 : None HEENT: None Psych: None Musculoskeletal: Osteoarthritis, Chronic back pain, Other Derm: Other - Past Surgical History Past Surgical History: Yes General: Bowel surgery, Other Ortho: Hip replacement, Other HEENT: Tonsil/Adenoidectomy Derm: Skin cancer surgery - Present Medications Home Medications: Ambulatory Orders Medication Instructions Recorded Confirmed Clopidogrel [Plavix] 75 mg PO 04/06/14 09/24/18 Celecoxib [Celebrex] 200 mg PO BID 06/08/16 09/24/18 Multivitamin [Theragran] 1 each PO DAILY 12/26/17 09/24/18 Vitamin B Complex 1 each PO DAILY 12/26/17 09/24/18 Atorvastatin Calcium 10 mg PO QPM 05/04/18 09/24/18 Doxycycline Hyclate 100 mg PO BID #20 capsule 02/03/20 Clindamycin HCl [Clindamycin 300MG 300 mg PO Q6H #28 capsule 02/06/20 CAP] - Allergies Allergies/Adverse Reactions: Allergies Allergy/AdvReac Type Severity Reaction Status Date / Time meloxicam Allergy Intermediate Hives Verified 02/09/20 21:08 Penicillins Allergy Intermediate Hives Verified 02/09/20 21:08 Sulfa (Sulfonamide Allergy Intermediate Hives Verified 02/09/20 21:08 Antibiotics) codeine Allergy Unknown Verified 02/09/20 21:08 latex Allergy Unknown Verified 02/09/20 21:08 nut - unspecified Allergy Anaphylaxis Verified 02/09/20 21:08 - Social History Does the pt smoke?: No Smoking Status: Never smoker Does the pt drink ETOH?: Yes Does the pt have substance abuse?: No - Immunizations Immunizations are current?: Yes Immunizations: TDAP current <10years - POLST Patient has POLST: No POLST Status: Full Code PD ED PE NORMAL - Vitals Vital signs reviewed: Yes - General General: Alert and oriented X 3, No acute distress, Well developed/nourished - HEENT HEENT: Moist mucous membranes - Neck Neck: Supple, no meningeal sign - Derm Derm: Warm and dry - Extremities Extremities: Other (R hand - 4x2 cm area of erythema to the 3rd MCP joint. no drainage. no tenderness along the tendon sheath. no palmar tenderness) - Neuro Neuro: Alert and oriented X 3 - Psych Psych: Normal mood, Normal affect Results - Vitals Vitals: Vital Signs - 24 hr 02/09/20 21:08 Temperature 36.6 C Heart Rate 76 Respiratory 14 Rate Blood Pressure 125/70 O2 Saturation 97 Oxygen O2 Source Room air PD MEDICAL DECISION MAKING - ED course Complexity details: reviewed old records, considered differential, d/w patient ED course: Patient is significantly improved from 2 days ago. No drainage. Ultrasound performed over the area, no drainable abscess. No purulence. No evidence of deep space infection in the hand. We will continue antibiotics and have her follow-up with her doctor for recheck. Patient counseled regarding signs and symptoms for which I believe and urgent re-evaluation would be necessary. Patient with good understanding of and agreement to plan and is comfortable going home at this time This document was made in part using voice recognition software. While efforts are made to proofread this document, sound alike and grammatical errors may occur. Departure - Departure Disposition: 01 Home, Self Care Clinical Impression: Visit for wound check Condition: Good Instructions: ED Wound Care Follow-Up: SHANNAN WOLF MD [Primary Care Provider] - Within 3 Days Comments: Follow-up with your doctor in 3 days for another wound check. Continue your antibiotics. Return sooner if you worsen including increasing redness, swelling or drainage. Also return for fevers. Discharge Date/Time: 02/09/20 21:34
== END 2020-02-09 21:34 | disposition home or self-care (01) ==
LOC: ED 21:00
DX: L53.9 Erythematous condition, unspecified (principal)
CPT/HCPCS: 99281

== ENCOUNTER 2020-06-16 16:31 | Outpatient (CLI) | payer MEDICARE, OTHER ==
[2020-06-16 17:15] LABS: THYROID STIMULATING HORMONE < 0.08 uIU/mL (0.34-5.60)
[2020-06-16 17:17] LABS: FREE T4 (FREE THYROXINE) 0.84 ng/dL (0.58-1.64)
== END 2020-06-16 16:32 | disposition home or self-care (01) ==
LOC: LAB 16:31
PROVIDERS: ATTEND Student in an Organized Health Care Education/Training Program
DX: E03.8 Other specified hypothyroidism (principal); E06.3 Autoimmune thyroiditis
CPT/HCPCS: 36415; 84439; 84443

== ENCOUNTER 2020-10-02 14:46 | Outpatient (CLI) | payer MEDICARE, OTHER ==
[2020-10-02 15:50] LABS: BASOPHILS % (AUTO) 0.3 %; EOSINOPHILS # (AUTO) 0.1 10^3/uL (0.0-0.7); EOSINOPHILS % (AUTO) 1.3 %; HGB - HEMOGLOBIN 13.4 g/dL (12.0-16.0); LYMPHOCYTES # (AUTO) 1.8 10^3/uL (1.5-3.5); LYMPHOCYTES % (AUTO) 29.8 %; MEAN CORPUSCULAR HEMOGLOBIN 30.2 pg (27.0-31.0); MEAN CORPUSCULAR HGB CONC 31.6 g/dL (32.0-36.0); MEAN CORPUSCULAR VOLUME 95.7 fL (81.0-99.0); MEAN PLATELET VOLUME 9.8 fL (7.9-10.8); MONOCYTES # (AUTO) 0.5 10^3/uL (0.0-1.0); MONOCYTES % (AUTO) 7.9 %; NEUTROPHILS # (AUTO) 3.7 10^3/uL (1.5-6.6); NEUTROPHILS % (AUTO) 60.5 %; PLT - PLATELET COUNT 172 10^3/uL (130-450); RED BLOOD COUNT 4.43 10^6/uL (4.20-5.40); RED CELL DISTRIBUTION WIDTH 13.4 % (12.0-15.0)
[2020-10-02 16:00] LABS: ALBUMIN 4.1 g/dL (3.2-5.5); ALBUMIN/GLOBULIN RATIO 1.9 (1.0-2.2); BILIRUBIN,TOTAL 0.8 mg/dL (0.2-1.0); CREATININE 0.9 mg/dL (0.4-1.0); TOTAL PROTEIN 6.3 g/dL (6.7-8.2)
== END 2020-10-02 14:47 | disposition home or self-care (01) ==
LOC: LAB 14:46
PROVIDERS: ATTEND Obstetrics & Gynecology
DX: Z01.812 Encounter for preprocedural laboratory examination (principal); N81.3 Complete uterovaginal prolapse; N95.0 Postmenopausal bleeding; Z20.828 Contact with and (suspected) exposure to other viral communicable diseases
CPT/HCPCS: 36415; 80053; 85025; 93005; U0004

== ENCOUNTER 2020-10-07 06:30 | Day surgery (SDC) | payer MEDICARE, OTHER ==
[~2020-10-07 06:30] MED LIST: CEFAZOLIN SODIUM IN 0.9 % NACL 2 GM/100 ML BAG IV ONE
[2020-10-07] MEDS ORDERED: ACETAMINOPHEN 1,000 MG/100 ML 100 ML IV ONE (06:31)
[2020-10-07] MEDS ORDERED: GLYCOPYRROLATE 1 MG/5 ML VIAL IVP ONE (06:31)
[2020-10-07] MEDS ORDERED: NEOSTIGMINE 1 MG/1 ML 10 ML MDV IVP ONE (06:31)
[2020-10-07] MEDS ORDERED: ePHEDrine 50 MG/ML VIAL IVP ONE (06:31)
[2020-10-07] MEDS ORDERED: ROCURONIUM 50 MG/5 ML VIAL IVP ONE (06:31)
[2020-10-07] MEDS ORDERED: MIDAZOLAM 2 MG/2 ML VIAL IVP ONE (06:31)
[2020-10-07] MEDS ORDERED: fentaNYL 100 MCG/2 ML VIAL IVP ONE (06:31)
[2020-10-07] MEDS ORDERED: ONDANSETRON 4 MG/2 ML VIAL IVP ONE (06:31)
[2020-10-07] MEDS ORDERED: PROPOFOL 200 MG/20 ML VIAL IVP ONE (06:31)
[2020-10-07] MEDS ORDERED: LIDOCAINE-MPF 2% 5 ML VIAL IM ONE (06:31)
[2020-10-07] MEDS ORDERED: LACTATED RINGERS 1,000 ML IV ONE ×2 (06:46→13:02)
--- NOTE | 2020-10-07 07:16 | ANESTHESIA ---
Pre-Anesthesia VS, & Labs - Diagnosis Uterovaginal Complete Prolapse, Cystocele-latgeral/paravaginal, rectocele, post menopausal bleeding. - Procedure LAVH, Ant/Post repair, Colporrhapy Vital Signs: Temp Pulse Resp BP Pulse Ox 36.5 C 75 12 109/50 L 100 10/07/20 06:47 10/07/20 06:47 10/07/20 06:47 10/07/20 06:47 10/07/20 06:47 Height: 5 ft 3 in Weight (kg): 56.3 kg Body Mass Index: 21.9 BMI Classification: Healthy weight - Is Patient ?: No - Lab Results Lab results reviewed: Yes Home Medications and Allergies Home Medications: Ambulatory Orders propylthiouraciL [Propylthiouracil] 50 mg PO DAILY 10/07/20 Clopidogrel [Plavix] 75 mg PO DAILY 04/06/14 Celecoxib [Celebrex] 200 mg PO BID 06/08/16 Multivitamin [Theragran] 1 each PO DAILY 12/26/17 Vitamin B Complex 1 each PO DAILY 12/26/17 Atorvastatin Calcium 10 mg PO QPM 05/04/18 Allergies/Adverse Reactions: Allergies Allergy/AdvReac Type Severity Reaction Status Date / Time meloxicam Allergy Intermediate Hives Verified 02/09/20 21:08 Penicillins Allergy Intermediate Hives Verified 02/09/20 21:08 Sulfa (Sulfonamide Allergy Intermediate Hives Verified 02/09/20 21:08 Antibiotics) codeine Allergy Emesis Verified 10/02/20 14:14 latex Allergy Rash Verified 10/02/20 14:14 nut - unspecified Allergy Anaphylaxis Verified 02/09/20 21:08 Anes History & Medical History - Anesthetic History Anesthesia Complications: reports: No previous complications (No issues with general anesthesia.), Other-see comment (With what sounds like popliteal block has residual numbness to leg.) Family history of Anesthesia Complications: Denies Family history of Malignant Hyperthermia: Denies - Medical History Cardiovascular: reports: High cholesterol, Deep vein thrombosis (Denies DVT), Arrhythmia (States on occasion feels pulse "jump" states has had bigeminy. 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 Pain in feet, hands and back.) Endocrine/Autoimmune: reports: HyPOthyroidism Blood Disorders: reports: None Skin: reports: Rosacea, Other Smoking Status: Never smoker Psychosocial: reports: Depression (depression for short time with colostomy) - Surgical History General: Bowel surgery, Colonoscopy, Other Eyes Ears Nose Throat (EENT): Tonsil/Adenoidectomy Orthopedic: Hip replacement, Other (Foot) Dermatologic: Skin cancer surgery Results - EKG Results EKG Comparison: Reviewed EKG, Normal EKG Exam General: Alert, Oriented x3, Cooperative, No acute distress Dental: WNL, Other (Lower teeth slightly worn) Mouth Openin Fingerbreadth Neck Mobility: Limited Mallampati classification: I Thyromental Distance: 4-6 cm Respiratory: Lungs clear, Normal breath sounds, No respiratory distress Cardiovascular: Regular rate, Normal S2, Other (Mild murnur in S1-1/6) Neurological: Normal speech Mental/Cognitive Status: Alert/Oriented X3, Oriented to name, Oriented to date, Oriented to time Cognitive Status: Within normal limits Plan Anesthesia Type: General (Possible TAP if converted to open) Consent for Procedure(s) Verified and Reviewed: Yes Code Status: Attempt Resuscitation ASA classification: 3-Severe systemic disease Is this case an emergency?: No (Consent reviewed and signed. Questions answered.)
[2020-10-07] MEDS ORDERED: BUPIVACAINE 0.25% PF 30 ML VIAL ONE (07:19)
[2020-10-07] MEDS ORDERED: MORPHINE 2 MG/ML CARPUJECT IVP PRN (08:03)
[2020-10-07] MEDS ORDERED: ATROPINE ABBOJECT 1 MG/10 ML SYRINGE IVP PRN (08:03)
[2020-10-07] MEDS ORDERED: NALOXONE 0.4 MG/ML VIAL IVP PRN (08:03)
[2020-10-07] MEDS ORDERED: ePHEDrine 50 MG/ML VIAL IVP PRN (08:03)
[2020-10-07] MEDS ORDERED: HYDROmorphone 0.5 MG/0.5 ML SYRINGE IVP PRN (08:03)
[2020-10-07] MEDS ORDERED: METOCLOPRAMIDE 10 MG/2 ML VIAL IVP PRN (08:03)
[2020-10-07] MEDS ORDERED: fentaNYL 100 MCG/2 ML VIAL IVP PRN (08:03)
[2020-10-07] MEDS ORDERED: ONDANSETRON 4 MG/2 ML VIAL IVP PRN ×3 (08:03→15:11)
[2020-10-07] MEDS ORDERED: BUPIVACAINE 0.25%-EPI 1:200000 PF 30 ML VIAL ONE ×2 (08:41→11:42)
[2020-10-07] MEDS ORDERED: BUPIVACAINE 0.25%-EPI 1:200000 PF 30 ML VIAL SUBQ ONE ×2 (08:42)
[2020-10-07] MEDS ORDERED: LACTATED RINGERS 1,000 ML IV SCH (09:00)
[2020-10-07] MEDS ORDERED: VASOPRESSIN 20 UNIT/ML VIAL IVP ONE (10:27)
[2020-10-07] MEDS ORDERED: VASOPRESSIN 20 UNIT/ML VIAL ONE (10:30)
[2020-10-07] MEDS ORDERED: ESTROGENS, CONJUGATED CREAM 30 GM TUBE ONE (11:43)
[2020-10-07] MEDS ORDERED: ESTROGENS, CONJUGATED CREAM 30 GM TUBE VG ONE (12:11)
[2020-10-07] MEDS ORDERED: oxyCODONE 5 MG TABLET PO PRN ×2 (13:00→15:11)
--- NOTE | 2020-10-07 13:07 | OPERATIVE REPORT ---
Operative Report - General Procedure Date: 10/07/20 Planned Procedure: LAVH, A&P, CYSTO Pre-Op Diagnosis: cystocele Rectocele Prolaps Procedure Performed: LAVH A&P, Cysto Post Op Diagnosis: Same plus Marked uteroColonic adhesions - Procedure Note Primary Surgeon: Valentin Whitley MD Secondary Surgeon: Yeimy Trivedi MD Anesthesia Provider: Angel Hassan CRNA Anesthesia Technique: General ET tube Pathology: Uterus IV Fluids (mL): 1,600 Estimated Blood Loss (mL): 100 Urine Output (mL): 400 Indications: Symptomatic cystocele rectocele and prolaps
[2020-10-07] MEDS ORDERED: ONDANSETRON 4 MG/2 ML VIAL ONE (13:25)
[2020-10-07] MEDS ORDERED: METOCLOPRAMIDE 10 MG/2 ML VIAL ONE (13:43)
[2020-10-07] MEDS: KETOROLAC 15 MG/ML VIAL IVP PRN ×2 (13:48→22:05)
[2020-10-07] MEDS: NEOMYCIN/POLYMYX/DEXAMETH OPHTH DROPS 5 ML RIGHTEYE SCH ×2 (13:58→22:01)
--- NOTE | 2020-10-07 14:16 | ANESTHESIA POST OP EVALUATION ---
Anesthesia Post Eval - Post Anesthesia Eval Vitals: Last Vital Signs Temp 36.6 C 10/07/20 13:52 Pulse 72 10/07/20 13:52 Resp 20 10/07/20 13:52 BP 112/52 L 10/07/20 13:52 Pulse Ox 95 10/07/20 13:52 CV Function Including HR & BP: positive: Stable Pain Control: positive: Satisfactory (States vaginal pain but is able to sleep) Nausea & Vomiting: positive: Negative (Mild nausea that is decreasing, able to sleep) Mental Status: positive: Patient Participates (Groggy but responds appropriately) Respiratory Status: Airway Patent Hydration Status: Satisfactory Anesthesia Complications: positive: Other (C/O right eye pain. Eye red and watery. Eye drops with steroid and abx ordered.)
[2020-10-07] MEDS ORDERED: PROPARACAINE 0.5% OPHTH DROPS 15 ML ONE (14:58)
[2020-10-07] MEDS ORDERED: LORazepam 2 MG/ML VIAL IVP PRN (15:11)
--- NOTE | 2020-10-07 15:21 | OPERATIVE REPORT ---
Operative Report - General Procedure Date: 10/07/20 Planned Procedure: LEEP Pre-Op Diagnosis: SIMA III Procedure Performed: LEEP - Procedure Note Pathology: 1. Cervical Transition Zone 2. Divit from 0800 3. Endocervical Canal 4. ECC Estimated Blood Loss (mL): 25 Indications: SIMA III
[2020-10-07] MEDS: PROPARACAINE 0.5% OPHTH DROPS 15 ML RIGHTEYE PRN ×4 (16:50→23:01)
[2020-10-07] MEDS: ACETAMINOPHEN 1,000 MG/100 ML 100 ML IV PRN (17:04)
[2020-10-07] MEDS: LACTATED RINGERS 1,000 ML IV SCH ×2 (17:33→23:03)
[2020-10-07] MEDS ORDERED: LACTATED RINGERS 500 ML IV ONE (19:16)
[2020-10-07 19:42] LABS: BASOPHILS % (AUTO) 0.3 %; EOSINOPHILS % (AUTO) 0.1 %; HGB - HEMOGLOBIN 10.8 g/dL (12.0-16.0); LYMPHOCYTES # (AUTO) 1.3 10^3/uL (1.5-3.5); LYMPHOCYTES % (AUTO) 16.8 %; MEAN CORPUSCULAR HGB CONC 31.3 g/dL (32.0-36.0); MEAN CORPUSCULAR VOLUME 95.8 fL (81.0-99.0); MEAN PLATELET VOLUME 9.6 fL (7.9-10.8); MONOCYTES # (AUTO) 0.5 10^3/uL (0.0-1.0); NEUTROPHILS # (AUTO) 5.8 10^3/uL (1.5-6.6); NEUTROPHILS % (AUTO) 75.5 %; PLT - PLATELET COUNT 123 10^3/uL (130-450); RED CELL DISTRIBUTION WIDTH 13.6 % (12.0-15.0); WHITE BLOOD COUNT 7.7 x10^3/uL (4.8-10.8)
[2020-10-08] MEDS: ACETAMINOPHEN 1,000 MG/100 ML 100 ML IV PRN (01:32)
[2020-10-08] MEDS: PROPARACAINE 0.5% OPHTH DROPS 15 ML RIGHTEYE PRN ×2 (01:33→06:26)
[2020-10-08 06:00] LABS: BASOPHILS % (AUTO) 0.3 %; EOSINOPHILS # (AUTO) 0.1 10^3/uL (0.0-0.7); EOSINOPHILS % (AUTO) 0.8 %; HGB - HEMOGLOBIN 10.7 g/dL (12.0-16.0); LYMPHOCYTES # (AUTO) 1.3 10^3/uL (1.5-3.5); LYMPHOCYTES % (AUTO) 21.1 %; MEAN CORPUSCULAR HEMOGLOBIN 30.3 pg (27.0-31.0); MEAN CORPUSCULAR HGB CONC 31.2 g/dL (32.0-36.0); MEAN CORPUSCULAR VOLUME 97.2 fL (81.0-99.0); MEAN PLATELET VOLUME 9.9 fL (7.9-10.8); MONOCYTES # (AUTO) 0.5 10^3/uL (0.0-1.0); MONOCYTES % (AUTO) 7.8 %; NEUTROPHILS # (AUTO) 4.1 10^3/uL (1.5-6.6); NEUTROPHILS % (AUTO) 69.7 %; PLT - PLATELET COUNT 124 10^3/uL (130-450); RED BLOOD COUNT 3.53 10^6/uL (4.20-5.40); RED CELL DISTRIBUTION WIDTH 13.9 % (12.0-15.0); WHITE BLOOD COUNT 5.9 x10^3/uL (4.8-10.8)
[2020-10-08 06:12] LABS: ALBUMIN 2.9 g/dL (3.2-5.5); ALBUMIN/GLOBULIN RATIO 1.5 (1.0-2.2); BILIRUBIN,TOTAL 0.8 mg/dL (0.2-1.0); CREATININE 0.5 mg/dL (0.4-1.0); TOTAL PROTEIN 4.8 g/dL (6.7-8.2)
[2020-10-08] MEDS: KETOROLAC 15 MG/ML VIAL IVP PRN ×2 (06:26→13:01)
--- NOTE | 2020-10-08 08:52 | PROVIDER PROGRESS NOTE ---
Subjective - General Procedure Date: 10/07/20 Post Op Days: 1 Procedure Performed: [facility] - Review of Systems Wound/Incisions: positive: Healing well General: positive: No symptoms (MINIMAL PAIN FROM INCISIONS. C/O RIGHT EYE PAIN. REQUESTING OINTMENT FOR PROLONGED LUBRICATION. PASSING FLATUS. EATING REGULAR DIET.) HEENT: positive: Eye pain (RIGHT HELPED WITH PONTICANE. REQUESTS MOR LUBRICATION) Gastrointestinal: positive: Flatus. negative: Vomiting Objective - Patient Data Reviewed Vital Signs: Yes Vital Signs: Vital Signs x48h Temp Pulse Resp BP Pulse Ox 10/08/20 08:44 36.9 C 64 18 113/68 98 10/08/20 05:48 36.9 C 70 16 106/59 L 96 Weight: Weight 10/06/20 10/07/20 10/08/20 23:59 23:59 23:59 Weight (kg) 56.3 kg Intake & Output: Intake and Output Totals x24h 10/06/20 10/07/20 10/08/20 23:59 23:59 23:59 Intake Total 7541.360 2697.667 Output Total 1375 1300 Balance 333.333 -117.333 - Lab Results Lab Results: 10/08/20 05:40 10/08/20 05:40 Other Lab Results: Lab Results x24hrs 10/08/20 10/08/20 10/07/20 Range/Units 05:40 05:40 19:31 WBC 5.9 7.7 (4.8-10.8) x10^3/uL RBC 3.53 L 3.60 L (4.20-5.40) 10^6/uL Hgb 10.7 L 10.8 L (12.0-16.0) g/dL Hct 34.3 L 34.5 L (37.0-47.0) % MCV 97.2 95.8 (81.0-99.0) fL MCH 30.3 30.0 (27.0-31.0) pg MCHC 31.2 L 31.3 L (32.0-36.0) g/dL RDW 13.9 13.6 (12.0-15.0) % Plt Count 124 L 123 L (130-450) 10^3/uL MPV 9.9 9.6 (7.9-10.8) fL Neut # (Auto) 4.1 5.8 (1.5-6.6) 10^3/uL Lymph # (Auto) 1.3 L 1.3 L (1.5-3.5) 10^3/uL [place] # (Auto) 0.5 0.5 (0.0-1.0) 10^3/uL Eos # (Auto) 0.1 0.0 (0.0-0.7) 10^3/uL Baso # (Auto) 0.0 0.0 (0.0-0.1) 10^3/uL Absolute Nucleated RBC 0.00 0.00 x10^3/uL Nucleated RBC % 0.0 0.0 /100WBC Sodium 139 (135-145) mmol/L Potassium 4.1 (3.5-5.0) mmol/L Chloride 107 (101-111) mmol/L Carbon Dioxide 26 (21-32) mmol/L Anion Gap 6.0 (6-13) BUN 14 (6-20) mg/dL Creatinine 0.5 (0.4-1.0) mg/dL Estimated GFR (MDRD) 119 (>89) Glucose 95 (70-100) mg/dL Calcium 8.0 L (8.5-10.3) mg/dL Total Bilirubin 0.8 (0.2-1.0) mg/dL AST 20 (10-42) IU/L ALT 17 (10-60) IU/L Alkaline Phosphatase 50 (42-121) IU/L Total Protein 4.8 L (6.7-8.2) g/dL Albumin 2.9 L (3.2-5.5) g/dL Globulin 1.9 L (2.1-4.2) g/dL Albumin/Globulin Ratio 1.5 (1.0-2.2) Blood Type Blood Type Recheck Antibody Screen 10/07/20 10/07/20 Range/Units 08:51 07:25 WBC (4.8-10.8) x10^3/uL RBC (4.20-5.40) 10^6/uL Hgb (12.0-16.0) g/dL Hct (37.0-47.0) % MCV (81.0-99.0) fL MCH (27.0-31.0) pg MCHC (32.0-36.0) g/dL RDW (12.0-15.0) % Plt Count (130-450) 10^3/uL MPV (7.9-10.8) fL Neut # (Auto) (1.5-6.6) 10^3/uL Lymph # (Auto) (1.5-3.5) 10^3/uL [place] # (Auto) (0.0-1.0) 10^3/uL Eos # (Auto) (0.0-0.7) 10^3/uL Baso # (Auto) (0.0-0.1) 10^3/uL Absolute Nucleated RBC x10^3/uL Nucleated RBC % /100WBC Sodium (135-145) mmol/L Potassium (3.5-5.0) mmol/L Chloride (101-111) mmol/L Carbon Dioxide (21-32) mmol/L Anion Gap (6-13) BUN (6-20) mg/dL Creatinine (0.4-1.0) mg/dL Estimated GFR (MDRD) (>89) Glucose (70-100) mg/dL Calcium (8.5-10.3) mg/dL Total Bilirubin (0.2-1.0) mg/dL AST (10-42) IU/L ALT (10-60) IU/L Alkaline Phosphatase (42-121) IU/L Total Protein (6.7-8.2) g/dL Albumin (3.2-5.5) g/dL Globulin (2.1-4.2) g/dL Albumin/Globulin Ratio (1.0-2.2) Blood Type O POSITIVE Blood Type Recheck O POSITIVE Antibody Screen NEGATIVE - Current Medications Current Medications: Current Medications Generic Name Dose Route Start Last Admin Trade Name Freq PRN Reason Stop Dose Admin Acetaminophen 100 mls @ 400 mls/hr 10/07/20 13:02 10/08/20 01:47 Ofirmev IV Infused Q6HR PRN Infusion PAIN Lactated Ringer's 1,000 mls @ 100 mls/hr 10/07/20 18:00 10/08/20 08:46 Lr IV Infused .Q10H ELIZA Infusion Ketorolac Tromethamine 15 mg 10/07/20 13:03 10/08/20 06:26 Toradol Inj (15mg) IVP 10/12/20 13:02 15 mg Q6HR PRN Administration PAIN Lorazepam 0.5 mg 10/07/20 15:11 10/08/20 01:31 Ativan Inj (Vial) IVP 0.5 mg Q2H PRN Administration Anxiety Neomycin/Polymyxin/Dexamethasone 0 drops 10/07/20 14:00 10/07/20 22:01 Maxitrol Ophth Drops RIGHTEYE 10/08/20 23:59 1 drops QID ELIZA Administration Proparacaine HCl 1 - 2 drops 10/07/20 14:58 10/08/20 06:26 Alcaine 0.5% Ophth Drops RIGHTEYE 2 drops Q5MIN PRN Administration PAIN - Physical Exam Wound/Incisions: positive: Healing well General Appearance: positive: No acute distress, Alert Eyes Bilateral: positive: PERRL, EOMI, Conjunctivae nml Respiratory: positive: Chest non-tender, No respiratory distress, Breath sounds nml Cardiovascular: positive: Regular rate & rhythm, No murmur, No gallop Abdomen: positive: Non-tender, No organomegaly, Nml bowel sounds, No distention. negative: Guarding, Rebound Back: negative: CVA tenderness (R), CVA tenderness (L) Extremities: negative: Calf tenderness, Huong's sign/cords Neurologic/Psychiatric: positive: Oriented x3 Impression/Plan - Problem List Problem List: POD #1 EXCELLENT PROGRESS. RIGHT EYE ABRATION RX WITH LUBRICANT. VAGINAL PACKING OUT SEND HOME HOME MEDICATION OXYCODONE CELEBREX COLACE RTC ONE WEEK
[2020-10-08] MEDS ORDERED: DOCUSATE SODIUM 100 MG CAPSULE PO SCH (09:00)
[2020-10-08] MEDS ORDERED: DOCUSATE SODIUM 250 MG CAPSULE PO PRN (09:00)
[2020-10-08] MEDS ORDERED: NEOMYCIN/POLYMYX/DEXAMETH OPHTH OINT RIGHTEYE SCH (10:30)
[2020-10-08] MEDS: LACTATED RINGERS 1,000 ML IV SCH (12:30)
[2020-10-08 13:07] VITALS: BP 137/56
== END 2020-10-08 14:57 | disposition home or self-care (01) ==
LOC: SDS 06:30 → MS2 14:27 → SDS 10-08 14:57
PROVIDERS: ATTEND Obstetrics & Gynecology
PROC: 0UT9FZZ Resection of Uterus, Via Natural or Artificial Opening With Percutaneous Endoscopic Assistance (ICD-10-PCS; principal; 2020-10-07 07:30)
PROC: 0JQC0ZZ Repair Pelvic Region Subcutaneous Tissue and Fascia, Open Approach (ICD-10-PCS; 2020-10-07 07:30)
DX: N81.3 Complete uterovaginal prolapse (principal); N81.6 Rectocele; N95.0 Postmenopausal bleeding; N39.3 Stress incontinence (female) (male); H57.89 Other specified disorders of eye and adnexa; H57.11 Ocular pain, right eye; Z86.73 Personal history of transient ischemic attack (TIA), and cerebral infarction without residual deficits
CPT/HCPCS: 36415; 57260; 58550; 80053; 85025; 86850; 86900; 86901; 88305; 88307; A9270; J0131; J0690; J2060; J2765; J3490; J7120

== ENCOUNTER 2020-10-09 23:36 | Emergency (ER) | payer MEDICARE, OTHER ==
[2020-10-10] MEDS ORDERED: ONDANSETRON ODT 4 MG TABLET TL STA (00:31)
[2020-10-10] MEDS ORDERED: PROMETHAZINE INJ 25 MG in SODIUM CHLORIDE 0.9% 50 ML IV STA (02:22)
[2020-10-10] MEDS ORDERED: IOVERSOL 320 100 ML VIAL IVP ONE ×2 (03:01→04:18)
[2020-10-10] MEDS ORDERED: PROMETHAZINE 25 MG/1 ML VIAL ONE (03:03)
[2020-10-10] MEDS ORDERED: KETOROLAC 30 MG/ML VIAL IVP STA (03:41)
[2020-10-10 03:48] LABS: BASOPHILS % (AUTO) 0.3 %; EOSINOPHILS % (AUTO) 0.3 %; HGB - HEMOGLOBIN 14.1 g/dL (12.0-16.0); LYMPHOCYTES # (AUTO) 0.9 10^3/uL (1.5-3.5); LYMPHOCYTES % (AUTO) 7.7 %; MEAN CORPUSCULAR HEMOGLOBIN 30.4 pg (27.0-31.0); MEAN CORPUSCULAR HGB CONC 31.7 g/dL (32.0-36.0); MEAN CORPUSCULAR VOLUME 95.9 fL (81.0-99.0); MONOCYTES # (AUTO) 0.5 10^3/uL (0.0-1.0); MONOCYTES % (AUTO) 4.1 %; NEUTROPHILS # (AUTO) 10.3 10^3/uL (1.5-6.6); NEUTROPHILS % (AUTO) 87.1 %; PLT - PLATELET COUNT 190 10^3/uL (130-450); RED BLOOD COUNT 4.64 10^6/uL (4.20-5.40); RED CELL DISTRIBUTION WIDTH 13.6 % (12.0-15.0); WHITE BLOOD COUNT 11.8 x10^3/uL (4.8-10.8)
[2020-10-10 03:59] LABS: ALBUMIN 3.8 g/dL (3.2-5.5); ALBUMIN/GLOBULIN RATIO 1.3 (1.0-2.2); BILIRUBIN,TOTAL 1.1 mg/dL (0.2-1.0); CALCIUM 9.5 mg/dL (8.5-10.3); CREATININE 0.6 mg/dL (0.4-1.0); TOTAL PROTEIN 6.8 g/dL (6.7-8.2)
[2020-10-10] MEDS ORDERED: SODIUM CHLORIDE 0.9% 1,000 ML IV STA (04:26)
--- NOTE | 2020-10-10 04:43 | ED Physician Documentation ---
PD HPI ABD PAIN - Stated complaint Stated Complaint: S/P SX, ABD PAIN - Chief complaint Chief Complaint: Abd Pain - History obtained from History obtained from: Patient - History of Present Illness Timing - onset: Today Timing - duration: Hours Timing - details: Gradual onset, Still present Quality: Cramping, Sharp, Fullness/distended, Pain Location: All over / everywhere Improved by: Laying still Worsened by: Moving, Position, Palpation Associated symptoms: Nausea, Vomiting, Constipation Similar symptoms before: Diagnosis (constipation with rupture of the colon) Recently seen: Surgery - Additional information Additional information: 80-year-old female with a prior history of colonic rupture secondary to constipation secondary to narcotic use has had surgery here 2 days ago for a laparoscopic assisted vaginal hysterectomy and anterior and posterior repair. She has developed constipation and she is very uncomfortable with cramping of the abdomen and a feeling that she needs to go to the bathroom. She is unable to produce any stool. Review of Systems Constitutional: denies: Fever Eyes: denies: Decreased vision Ears: denies: Ear pain Nose: denies: Congestion Throat: denies: Sore throat Cardiac: denies: Chest pain / pressure, Palpitations Respiratory: denies: Dyspnea, Cough GI: reports: Abdominal Pain, Nausea, Vomiting, Constipation : denies: Dysuria, Frequency Skin: denies: Rash Musculoskeletal: denies: Neck pain, Back pain, Extremity pain Neurologic: denies: Generalized weakness, Focal weakness, Numbness PD PAST MEDICAL HISTORY - Past Medical History Cardiovascular: High cholesterol, Deep vein thrombosis (Denies DVT), Arrhythmia (States on occasion feels pulse "jump" states has had bigeminy. 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 Pain in feet, hands and back.) Derm: Rosacea, Other - Past Surgical History Past Surgical History: Yes General: Bowel surgery, Colonoscopy, Other Ortho: Hip replacement, Other (Foot) HEENT: Tonsil/Adenoidectomy Derm: Skin cancer surgery - Present Medications Home Medications: Ambulatory Orders Medication Instructions Recorded Confirmed Clopidogrel [Plavix] 75 mg PO DAILY 04/06/14 10/07/20 Celecoxib [Celebrex] 200 mg PO BID 06/08/16 10/07/20 Multivitamin [Theragran] 1 each PO DAILY 12/26/17 10/07/20 Vitamin B Complex 1 each PO DAILY 12/26/17 10/07/20 Atorvastatin Calcium 10 mg PO QPM 05/04/18 10/07/20 propylthiouraciL [Propylthiouracil] 50 mg PO DAILY 10/07/20 10/07/20 - Allergies Allergies/Adverse Reactions: Allergies Allergy/AdvReac Type Severity Reaction Status Date / Time meloxicam Allergy Intermediate Hives Verified 10/09/20 23:45 Penicillins Allergy Intermediate Hives Verified 10/09/20 23:45 Sulfa (Sulfonamide Allergy Intermediate Hives Verified 10/09/20 23:45 Antibiotics) codeine Allergy Emesis Verified 10/09/20 23:45 latex Allergy Rash Verified 10/09/20 23:45 nut - unspecified Allergy Anaphylaxis Verified 10/09/20 23:45 - Social History Does the pt smoke?: No Smoking Status: Never smoker Does the pt drink ETOH?: Yes Does the pt have substance abuse?: No - Immunizations Immunizations are current?: Yes Immunizations: TDAP current <10years - POLST Patient has POLST: No POLST Status: Full Code PD ED PE NORMAL - Vitals Vital signs reviewed: Yes (Hypertensive) - General General: Alert and oriented X 3, Well developed/nourished, Other (The patient is clutching an emesis bag and periodically moaning in pain.) - HEENT HEENT: Atraumatic, PERRL, EOMI, Other (Dry mucous membranes) - Neck Neck: Supple, no meningeal sign, No bony TTP - Cardiac Cardiac: RRR, No murmur - Respiratory Respiratory: No respiratory distress, Clear bilaterally - Abdomen Abdomen: Soft, Other (For active bowel sounds with generalized tenderness without guarding or rebound. The surgical wounds appear to be healing without signs of inflammation.) - Back Back: No CVA TTP, No spinal TTP - Derm Derm: Normal color, Warm and dry, No rash - Extremities Extremities: No deformity, No edema - Neuro Neuro: Alert and oriented X 3, records management associate 2-12 intact, No motor deficit, No sensory deficit, Normal speech Eye Opening: Spontaneous Motor: Obeys Commands Verbal: Oriented GCS Score: 15 - Psych Psych: Normal mood, Normal affect Results - Vitals Vitals: Vital Signs - 24 hr 10/09/20 10/10/20 10/10/20 23:40 02:00 04:00 Temperature 36.2 C L 36.5 C 36.5 C Heart Rate 66 72 68 Respiratory 18 18 20 Rate Blood Pressure 132/74 H 138/80 H 121/65 O2 Saturation 95 94 97 10/10/20 06:00 Temperature 36.5 C Heart Rate 69 Respiratory 16 Rate Blood Pressure 120/62 O2 Saturation 98 Oxygen O2 Source Room air - Labs Labs: Laboratory Tests 10/10/20 10/10/20 10/10/20 02:45 02:45 04:15 WBC 11.8 H RBC 4.64 Hgb 14.1 Hct 44.5 MCV 95.9 MCH 30.4 MCHC 31.7 L RDW 13.6 Plt Count 190 MPV 10.0 Neut # (Auto) 10.3 H Lymph # (Auto) 0.9 L [place] # (Auto) 0.5 Eos # (Auto) 0.0 Baso # (Auto) 0.0 Absolute Nucleated RBC 0.00 Nucleated RBC % 0.0 Sodium 136 Potassium 4.0 Chloride 99 L Carbon Dioxide 25 Anion Gap 12.0 BUN 16 Creatinine 0.6 Estimated GFR (MDRD) 97 Glucose 126 H Calcium 9.5 Total Bilirubin 1.1 H AST 32 ALT 21 Alkaline Phosphatase 66 Total Protein 6.8 Albumin 3.8 Globulin 3.0 Albumin/Globulin Ratio 1.3 Lipase 23 Urine Color YELLOW Urine Clarity CLEAR Urine pH 5.5 Ur Specific Devers >=1.030 H Urine Protein NEGATIVE Urine Glucose (UA) NEGATIVE Urine Ketones >=80 H Urine Occult Blood NEGATIVE Urine Nitrite NEGATIVE Urine Bilirubin NEGATIVE Urine Urobilinogen 0.2 (NORMAL) Ur Leukocyte Esterase NEGATIVE Ur Microscopic Review NOT INDICATED Urine Culture Comments NOT INDICATED - Rads (name of study) CT abdomen pelvis with Radiology: Prelim report reviewed PD MEDICAL DECISION MAKING - ED course Complexity details: reviewed old records, reviewed results, re-evaluated esthela blankenship, considered differential, d/w patient ED course: 72-year-old female with a prior history of colonic rupture secondary to constipation is constipated again and she is having significant amount of pain and discomfort associated with this and a CT scan shows significant stool retention and this ends about 8 above the rectum. There is no palpable stool in the vault and enema is not effective. A second higher enema was placed until the patient was unable to tolerate this anymore which was about 10 inches. No significant results from this. At this point I consulted the surgeon to consider colonoscopy for removal of stool and he recommended medical management with permanent colostomy for failure. The patient had a large bowel movement with marked improvement in her symptoms. Departure - Departure Disposition: 01 Home, Self Care Clinical Impression: Constipation Qualifiers: Constipation type: outlet dysfunction constipation Qualified Code(s): K59.02 - Outlet dysfunction constipation Condition: Stable Instructions: ED Constipation Follow-Up: Valentin Whitley MD [Primary Care Provider] -
[2020-10-10 05:08] LABS: BILIRUBIN,URINE NEGATIVE (NEGATIVE); CLARITY,URINE CLEAR (CLEAR); GLUCOSE, URINE (UA) NEGATIVE (NEGATIVE); KETONES,URINE (UA) >=80 mg/dL (NEGATIVE); LEUKOCYTE ESTERASE, URINE NEGATIVE (NEGATIVE); NITRITE,URINE NEGATIVE (NEGATIVE); OCCULT BLOOD,URINE NEGATIVE (NEGATIVE); PH,URINE 5.5 PH (5.0-7.5); PROTEIN,URINE NEGATIVE (NEGATIVE); UROBILINOGEN,URINE 0.2 (NORMAL) E.U./dL (NORMAL)
[2020-10-10 06:36] VITALS: BP 120/62
--- NOTE | 2020-10-10 09:28 | CT Report ---
PROCEDURE: Abdomen/Pelvis W INDICATIONS: abdominal pain post op CONTRAST: IV CONTRAST: Optiray 320 ml: 100 PO CONTRAST: *NO PO CONTRAST TECHNIQUE: After the administration of IV contrast, 5 mm thick sections acquired from the diaphragms to the symp hysis. 5 mm thick coronal and sagittal reformats were acquired. For radiation dose reduction, the f ollowing was used: automated exposure control, adjustment of mA and/or kV according to patient size. COMPARISON: CT examination dated 08.28.18. FINDINGS: Image quality: Degraded by left hip arthroplasty. ABDOMEN: Lung bases: There is a subpleural nodule within the right lower lobe posteriorly which is incompletel y visualized and measures at least 7 mm diameter. There is a left posterior lung base nodule measurin g 7 mm, as before.. Heart size is normal. Solid organs: Liver and spleen are normal in size. Medial segment left hepatic lobe cyst is unchange d. Cyst within the right hepatic dome is present. Gallbladder is within normal limits Biliary system is non dilated. Pancreas enhances normally. No adrenal nodules. Kidneys demonstrate normal size a nd enhancement, without hydronephrosis. Peritoneum and bowel: The stomach and small bowel are grossly unremarkable on noncontrast imaging. Th ere is moderate distention of the right colon, transverse colon, and descending colon. There is mild thickening of the descending colon, which demonstrates mild surrounding fat stranding. There is mild distention of the sigmoid colon. There is a rectosigmoid anastomosis, as before. No free fluid or air . Nodes and vessels: No retroperitoneal or mesenteric adenopathy by size criteria. Aorta and inferior vena cava are normal in size. Miscellaneous: There is an anterior pelvic wall hernia measuring 40 mm transverse, as before, which c ontains a loop of small bowel. There is subcutaneous gas within the right lateral, left lateral, and anterior abdominal pelvic wall, compatible with postsurgical sequelae. PELVIS: Genitourinary: Urinary bladder is decompressed. A Yousif catheter is present. Miscellaneous: No inguinal hernias or adenopathy. Bones: No suspicious bony lesions. Left hip arthroplasty. No vertebral body compression fractures. IMPRESSION: 1. Post surgical sequelae. 2. Thickening of the descending colon, consistent with infection, inflammation, or ischemia. There is moderate associated dilatation of the more proximal colon. 3. Small bowel-containing anterior pelvic wall hernia without evidence of associated small bowel obst ruction. 4. No change in left lung base nodule. 5. Indeterminate, incompletely visualized right lower lobe nodule, which could be further assessed wi nonemergent noncontrast outpatient follow-up chest CT examination. 6. Concordant with preliminary interpretation. Reviewed by: Susu Weinstein MD on 10/10/2020 9:27 AM PST Approved by: Susu Weinstein MD on 10/10/2020 9:27 AM [facility] Station ID: [id number]
== END 2020-10-10 07:11 | disposition home or self-care (01) ==
LOC: ED 23:36
DX: K59.02 Outlet dysfunction constipation (principal); Z98.890 Other specified postprocedural states; Z87.19 Personal history of other diseases of the digestive system; Z90.49 Acquired absence of other specified parts of digestive tract; Z86.718 Personal history of other venous thrombosis and embolism; Z79.02 Long term (current) use of antithrombotics/antiplatelets
CPT/HCPCS: 36415; 74177; 80053; 81003; 83690; 85025; 96361; 96365; 96375; 99284; J7040; Q0162; Q9967; 81001; 87086

== ENCOUNTER 2020-10-12 08:00 | Outpatient (CLI) | payer MEDICARE, OTHER | END 2020-10-12 23:59 | disposition home or self-care (01) | LOC: LAB.R 08:00 | PROVIDERS: ATTEND Obstetrics & Gynecology | DX: R33.9 Retention of urine, unspecified (principal) | CPT/HCPCS: 87086 ==

== ENCOUNTER → 2020-10-13 | Outpatient (CLI) | payer MEDICARE, OTHER | LOC: LAB.R 08:00 | PROVIDERS: ATTEND Obstetrics & Gynecology | DX: R33.9 Retention of urine, unspecified (principal) | CPT/HCPCS: 87077; 87086; 87181 ==

== ENCOUNTER 2021-01-28 16:53 | Outpatient (CLI) | payer MEDICARE, OTHER | END 2021-01-28 16:54 | disposition home or self-care (01) | LOC: COV 16:53 | PROVIDERS: ATTEND Surgery | DX: Z01.812 Encounter for preprocedural laboratory examination (principal); K43.2 Incisional hernia without obstruction or gangrene; Z20.822 Contact with and (suspected) exposure to COVID-19 ==

== ENCOUNTER 2021-02-01 09:26 | Inpatient (IN) | payer MEDICARE, OTHER ==
[~2021-02-01 09:26] MED LIST changes: -CEFAZOLIN SODIUM IN 0.9 % NACL 2 GM/100 ML BAG IV ONE; +ceFAZolin 2 GM/50 ML 2 GM/50 ML BAG IV ONE
[2021-02-01] MEDS ORDERED: LACTATED RINGERS 1,000 ML IV ONE ×2 (09:37→14:13)
[2021-02-01] MEDS ORDERED: ePHEDrine 50 MG/ML VIAL IVP PRN (10:38)
[2021-02-01] MEDS ORDERED: NALOXONE 0.4 MG/ML VIAL IVP PRN (10:38)
[2021-02-01] MEDS ORDERED: ONDANSETRON 4 MG/2 ML VIAL IVP PRN (10:38)
[2021-02-01] MEDS ORDERED: ATROPINE ABBOJECT 1 MG/10 ML SYRINGE IVP PRN (10:38)
[2021-02-01] MEDS ORDERED: METOCLOPRAMIDE 10 MG/2 ML VIAL IVP PRN (10:38)
--- NOTE | 2021-02-01 10:38 | ANESTHESIA ---
Pre-Anesthesia VS, & Labs - Diagnosis incisional hernia - Procedure Incisional hernia repair Vital Signs: Temp Pulse Resp BP Pulse Ox 67268 C H 77 16 119/59 L 97 02/01/21 09:51 02/01/21 09:51 02/01/21 09:51 02/01/21 09:51 02/01/21 09:51 Height: 5 ft 3 in Weight (kg): 57.2 kg Body Mass Index: 22.3 BMI Classification: Healthy weight - NPO >8 hours - Is Patient ?: No - Lab Results Lab results reviewed: Yes Home Medications and Allergies Home Medications: Ambulatory Orders Ascorbic Acid [Vitamin C] 1,000 mg PO DAILY 01/25/21 Cholecalciferol [Vitamin D3] 50 mcg PO DAILY 01/25/21 Clopidogrel [Plavix] 37.5 mg PO DAILY 04/06/14 Celecoxib [Celebrex] 200 mg PO BID 06/08/16 Multivitamin [Theragran] 1 each PO DAILY 12/26/17 Vitamin B Complex 1 each PO DAILY 12/26/17 Atorvastatin Calcium 10 mg PO QPM 05/04/18 propylthiouraciL [Propylthiouracil] 50 mg PO DAILY 10/07/20 Ascorbic Acid [Vitamin C] 1,000 mg PO DAILY 01/25/21 Cholecalciferol [Vitamin D3] 50 mcg PO DAILY 01/25/21 Allergies/Adverse Reactions: Allergies Allergy/AdvReac Type Severity Reaction Status Date / Time meloxicam Allergy Intermediate Hives Verified 10/09/20 23:45 Penicillins Allergy Intermediate Hives Verified 10/09/20 23:45 Sulfa (Sulfonamide Allergy Intermediate Hives Verified 10/09/20 23:45 Antibiotics) codeine Allergy Emesis Verified 10/09/20 23:45 latex Allergy Rash Verified 10/09/20 23:45 nut - unspecified Allergy Anaphylaxis Verified 10/09/20 23:45 Anes History & Medical History - Anesthetic History Anesthesia Complications: reports: No previous complications Family history of Anesthesia Complications: Denies Family history of Malignant Hyperthermia: Denies - Medical History Cardiovascular: reports: High cholesterol, Deep vein thrombosis, Arrhythmia Pulmonary: reports: Pneumonia Gastrointestinal: reports: GERD, Diverticulitis, Other Urinary: reports: Incontinence Neuro: reports: None, CVA (6 Years ago-no residual sx), TIA (Once 8 years ago-no residual sx.) Musculoskeletal: reports: Osteoarthritis Endocrine/Autoimmune: reports: HyPOthyroidism Blood Disorders: reports: None Skin: reports: Rosacea, Other Smoking Status: Never smoker - Surgical History General: reports: Bowel surgery, Colonoscopy, Other Eyes Ears Nose Throat (EENT): reports: Tonsil/Adenoidectomy Gynecologic: reports: Hysterectomy Orthopedic: reports: Hip replacement, Other Dermatologic: reports: Skin cancer surgery Exam General: Alert, Oriented x3, Cooperative, No acute distress Dental: WNL Mouth Openin Fingerbreadth Neck Mobility: Normal Mallampati classification: II Respiratory: Lungs clear, Normal breath sounds, No respiratory distress, No accessory muscle use Cardiovascular: Regular rate, Normal S1, Normal S2, No murmurs Plan Anesthesia Type: General, Epidural, Transverse Abdominis Plane (TAP) Block Regional Block: Per Surgeon's request for Post Op pain control Consent for Procedure(s) Verified and Reviewed: Yes Code Status: Attempt Resuscitation ASA classification: 2-Mild systemic disease Is this case an emergency?: No
[2021-02-01] MEDS ORDERED: LACTATED RINGERS 1,000 ML IV SCH (11:00)
[2021-02-01] MEDS ORDERED: BUPIVACAINE 0.5% PF 30 ML VIAL ONE (11:44)
[2021-02-01] MEDS ORDERED: LIDOCAINE 2%-EPI 1:100000 20 ML MDV ONE (11:44)
[2021-02-01] MEDS ORDERED: ceFAZolin 1 GM VIAL ONE (11:55)
[2021-02-01] MEDS ORDERED: MIDAZOLAM 2 MG/2 ML VIAL ONE (12:04)
[2021-02-01] MEDS ORDERED: PROPOFOL 200 MG/20 ML VIAL IVP ONE (12:04)
[2021-02-01] MEDS ORDERED: KETAMINE 500 MG/10 ML VIAL ONE (12:04)
[2021-02-01] MEDS ORDERED: LIDOCAINE-MPF 2% 5 ML VIAL ONE (12:05)
[2021-02-01] MEDS ORDERED: ROCURONIUM 50 MG/5 ML VIAL ONE (12:05)
[2021-02-01] MEDS ORDERED: BUPIVACAINE 0.5% PF 30 ML VIAL INFIL ONE ×2 (12:31)
[2021-02-01] MEDS ORDERED: LIDOCAINE 2%-EPI 1:100000 20 ML MDV SUBQ ONE ×2 (12:31)
[2021-02-01] MEDS ORDERED: ceFAZolin 1 GM VIAL IR ONE (12:36)
[2021-02-01] MEDS: KETOROLAC 15 MG/ML VIAL IVP SCH ×3 (12:50→19:44)
[2021-02-01] MEDS ORDERED: ROPIVACAINE 0.2% PF 20ML VIAL ONE (13:21)
[2021-02-01] MEDS ORDERED: oxyCODONE 5 MG TABLET PO PRN (13:29)
[2021-02-01] MEDS ORDERED: KETOROLAC 15 MG/ML VIAL ONE (13:57)
[2021-02-01] MEDS ORDERED: ACETAMINOPHEN 1,000 MG/100 ML 100 ML IV ONE (13:57)
[2021-02-01] MEDS ORDERED: METOCLOPRAMIDE 10 MG/2 ML VIAL ONE (14:05)
--- NOTE | 2021-02-01 14:23 | ANESTHESIA POST OP EVALUATION ---
Anesthesia Post Eval - Post Anesthesia Eval Vitals: Last Vital Signs Temp 36.8 C 02/01/21 13:40 Pulse 68 02/01/21 14:20 Resp 12 02/01/21 14:20 BP 126/63 02/01/21 14:20 Pulse Ox 97 02/01/21 14:20 CV Function Including HR & BP: positive: Stable Pain Control: positive: Satisfactory (patient complains of some abdominal pain but does not want opioids) Nausea & Vomiting: positive: Addtional Therapies Ordered Mental Status: positive: Patient Participates Respiratory Status: Airway Patent Hydration Status: Satisfactory Anesthesia Complications: positive: None
[2021-02-01] MEDS: ONDANSETRON 4 MG/2 ML VIAL IVP PRN (14:30)
[2021-02-01] MEDS ORDERED: ONDANSETRON 4 MG/2 ML VIAL ONE (14:38)
[2021-02-01] MEDS: ceFAZolin 2 GM/50 ML 2 GM/50 ML BAG IV SCH ×2 (14:56→21:28)
[2021-02-01] MEDS: SODIUM CHLORIDE FLUSH 0.9% 10 ML SYRINGE IVP PRN ×2 (14:57→22:09)
[2021-02-01] MEDS: methocarbamoL 500 MG TABLET PO PRN (15:46)
[2021-02-01] MEDS: SODIUM CHLORIDE FLUSH 0.9% 10 ML SYRINGE IVP SCH (15:46)
[2021-02-01] MEDS ORDERED: ACETAMINOPHEN 325 MG TABLET PO SCH (18:00)
[2021-02-01] MEDS: ACETAMINOPHEN 1,000 MG/100 ML 100 ML IV SCH (19:44)
[2021-02-01] MEDS: PREGABALIN 25 MG CAPSULE PO SCH (21:27)
[2021-02-01] MEDS: ATORVASTATIN 10 MG TABLET PO SCH (21:28)
[2021-02-02] MEDS: methocarbamoL 500 MG TABLET PO PRN ×2 (00:14→06:57)
[2021-02-02] MEDS: KETOROLAC 15 MG/ML VIAL IVP SCH ×3 (01:21→20:23)
[2021-02-02] MEDS: ACETAMINOPHEN 1,000 MG/100 ML 100 ML IV SCH ×4 (01:28→20:23)
[2021-02-02] MEDS: SODIUM CHLORIDE FLUSH 0.9% 10 ML SYRINGE IVP SCH ×3 (01:35→17:36)
[2021-02-02] MEDS: SODIUM CHLORIDE FLUSH 0.9% 10 ML SYRINGE IVP PRN ×2 (01:47→08:23)
[2021-02-02] MEDS: PANTOPRAZOLE 40 MG TABLET PO SCH (06:58)
[2021-02-02] MEDS: ONDANSETRON 4 MG/2 ML VIAL IVP PRN (08:09)
[2021-02-02] MEDS: polyethylene glycoL 3350 17 GM PACKET PO SCH ×2 (08:12→12:33)
[2021-02-02] MEDS: LACTULOSE 10 GM /15 ML UDC PO SCH ×2 (08:12→13:51)
[2021-02-02] MEDS: PREGABALIN 25 MG CAPSULE PO SCH ×3 (08:12→21:06)
[2021-02-02] MEDS: methocarbamoL 500 MG TABLET PO SCH ×3 (13:53→23:40)
[2021-02-02 14:48] LABS: BASOPHILS % (AUTO) 0.2 %; EOSINOPHILS # (AUTO) 0.1 10^3/uL (0.0-0.7); EOSINOPHILS % (AUTO) 1.6 %; HCT - HEMATOCRIT 43.3 % (37.0-47.0); HGB - HEMOGLOBIN 13.5 g/dL (12.0-16.0); LYMPHOCYTES # (AUTO) 1.7 10^3/uL (1.5-3.5); LYMPHOCYTES % (AUTO) 20.3 %; MEAN CORPUSCULAR HEMOGLOBIN 30.2 pg (27.0-31.0); MEAN CORPUSCULAR HGB CONC 31.2 g/dL (32.0-36.0); MEAN CORPUSCULAR VOLUME 96.9 fL (81.0-99.0); MEAN PLATELET VOLUME 9.8 fL (7.9-10.8); MONOCYTES # (AUTO) 0.5 10^3/uL (0.0-1.0); MONOCYTES % (AUTO) 6.5 %; NEUTROPHILS # (AUTO) 5.8 10^3/uL (1.5-6.6); NEUTROPHILS % (AUTO) 71.2 %; PLT - PLATELET COUNT 169 10^3/uL (130-450); RED BLOOD COUNT 4.47 10^6/uL (4.20-5.40); RED CELL DISTRIBUTION WIDTH 14.4 % (12.0-15.0); WHITE BLOOD COUNT 8.1 x10^3/uL (4.8-10.8)
[2021-02-02 15:02] LABS: ALBUMIN 4.2 g/dL (3.2-5.5); ALBUMIN/GLOBULIN RATIO 1.8 (1.0-2.2); ALKALINE PHOSPHATASE 59 IU/L (42-121); ALT ALANINE AMINOTRANSFERASE 19 IU/L (10-60); AST ASPARTATE AMINOTRANSFERASE 31 IU/L (10-42); BILIRUBIN,TOTAL 1.1 mg/dL (0.2-1.0); BUN - BLOOD UREA NITROGEN 17 mg/dL (6-20); CALCIUM 8.7 mg/dL (8.5-10.3); CARBON DIOXIDE - CO2 27 mmol/L (21-32); CHLORIDE 98 mmol/L (101-111); CREATININE 0.9 mg/dL (0.4-1.0); GFR - MDRD 61 (>89); GLUCOSE 105 mg/dL (70-100); IONIZED CALCIUM IF INDICATED NO; POTASSIUM 3.9 mmol/L (3.5-5.0); SODIUM 135 mmol/L (135-145); TOTAL PROTEIN 6.5 g/dL (6.7-8.2)
[2021-02-02] MEDS: ENOXAPARIN 40 MG/0.4 ML SYRINGE SUBQ SCH (15:05)
--- NOTE | 2021-02-02 17:40 | PHARMACY PROGRESS NOTE ---
- Best Possible Medication History Admit Date and Time: Processed by: Pharmacy Medication History completed: Yes Patient Interview: Completed (Pt interviewed by Ryan 02/02) Secondary Source(s): Pharmacy records, Insurance records Pt stated she has been changed to propylthiouracil 50 mg qpm (instead of BID), and confirmed that she takes clopidogrel 75 mg every other day As the person ultimately responsible for medication therapy, providers are able to order a medication from an existing home medication list in [facility] via the "Reconcile Routine" prior to Confirmation of that medication by office support associate. Such practice is discouraged except when the physician, in their clinical judgment, deems that a medical need exists for a medication without regard to previous use.
--- NOTE | 2021-02-02 18:41 | OPERATIVE REPORT ---
Operative Report - General Admit Date: 02/03/21 Planned Procedure: Incisional Hernia Repair Pre-Op Diagnosis: Incisional hernia Procedure Performed: Incisional hernia repair Post Op Diagnosis: Large incisional hernia - Procedure Note Primary Surgeon: Cruz Anesthesia Provider: MARLYN Godniez Anesthesia Technique: General ET tube, Regional block Pathology: None Estimated Blood Loss (mL): 25 Indications: Painful incisional hernia Findings: 8 cm Incisional hernia in the midline 3 cm LLQ hernia at prior ostomy site. Complications: None apparent - Other Other Information/Narrative: After obtaining informed consent, the patient is brought the operating room and placed in the supine position on the operating table. Following successful induction of general endotracheal anesthesia, appropriate padding of all bony prominences, and placement appropriate monitors, the abdomen was prepped and draped in the standard surgical fashion. A timeout was held per scope protocol. All elements of the surgical safety checklist were followed before, during, and after the procedure. We began the procedure by infiltrating mixture of local anesthetics directly over the defect at the site of the previous incision in the midline below the umbilicus.The old scar was excised sharply and passed from the table. The peritoneum was then opened with Metzenbaum scissors and the abdomen was entered clean.The edges of the midline hernia were palpated and it was noted to be approximately 8 to 9 cm in horizontal dimension and 6-7 in vertical dimension palpation of the remainder of the abdomen revealed a 3 to 4 cm hernia at the site of the prior ostomy in the left lower quadrant. I decided at this point that both defects should be covered with the mesh we would place today.A lysis of adhesions was undertaken again under direct vision and with the use of Metzenbaum scissors. I was able to clear the entire central and left lateral abdominal wall in order to have safe placement of mesh. At 13.8 x 17.[address] portion of ventral [address] ST mesh was chosen for the repair. This was deployed into the defect and 6 tacking sutures were placed one at each end and to at 1 at each lateral and into at each top and bottom. This was done again carefully with retraction and under direct vision. The entire thing was then sewn into place with a running 0 Vicryl suture 1 for the top half and 1 for the bottom half. Great care was taken not to injure any portion of the bowel during this procedure. The abdomen was irrigated with 2 L of warm saline solution and aspirated free of all fluid and particulate matter. All portions of the mesh were examined carefully and it was found to be in good position with no remaining defects.The hernia sac was then carefully dissected free from the dermis of the skin and trimmed at the level of the fascia in a circumferential fashion. I then elected to close the fascia with interrupted #1 PDS sutures. A second layer was created with Vicryl suture and Finally the skin was closed with a Monocryl subcuticular stitch. Spencer was applied to the skin and a binder applied once the Dermabond was dry. All sponge, needle, and instrument counts were correct at the conclusion of the case. The patient was allowed to wake from anesthesia without difficulty and taken to the postanesthesia care unit in good condition.
--- NOTE | 2021-02-02 18:44 | PROVIDER PROGRESS NOTE ---
Subjective - General Admit Date: 02/02/21 Procedure Date: 02/01/21 Post Op Days: 1 Procedure Performed: Incisional Hernia Repair - Review of Systems Wound/Incisions: positive: Healing well General: positive: Fatigue HEENT: positive: No symptoms Pulmonary: positive: No symptoms Cardiovascular: positive: No symptoms Gastrointestinal: positive: Other (No appetite) Genitourinary: positive: Other (Urinary retention) Musculoskeletal: positive: No symptoms Skin: positive: No symptoms - Other Other Information/Narrative: Jannette is complaining of pain. She is refusing narcotic medications due to concern regarding constipation. She also reports she had diarrhea from lactulose prior to surgery and so has refused it so far today. She would like to try a different stool softener. She had her catheter removed only about an hour ago and has not yet been able to urinate. She is complaining of loss of appetite and has not been out of bed to walk in the halls. She says it is just to painful. She has passed some flatus today and denies any shortness of breath Objective - Patient Data Reviewed Vital Signs: Yes Vital Signs: Vital Signs x48h Temp Pulse Resp BP Pulse Ox 02/02/21 17:22 36.4 C L 58 L 18 118/63 96 Weight: Weight 01/31/21 02/01/21 02/02/21 23:59 23:59 23:59 Weight (kg) 57.2 kg 57.2 kg Intake & Output: Intake and Output Totals x24h 01/31/21 02/01/21 02/02/21 23:59 23:59 23:59 Intake Total 650 640 Output Total 1060 1700 Balance -410 -1060 - Lab Results Lab Results: 02/02/21 14:35 02/02/21 14:35 Other Lab Results: Lab Results x24hrs 02/02/21 02/02/21 Range/Units 14:35 14:35 WBC 8.1 (4.8-10.8) x10^3/uL RBC 4.47 (4.20-5.40) 10^6/uL Hgb 13.5 (12.0-16.0) g/dL Hct 43.3 (37.0-47.0) % MCV 96.9 (81.0-99.0) fL MCH 30.2 (27.0-31.0) pg MCHC 31.2 L (32.0-36.0) g/dL RDW 14.4 (12.0-15.0) % Plt Count 169 (130-450) 10^3/uL MPV 9.8 (7.9-10.8) fL Neut # (Auto) 5.8 (1.5-6.6) 10^3/uL Lymph # (Auto) 1.7 (1.5-3.5) 10^3/uL [place] # (Auto) 0.5 (0.0-1.0) 10^3/uL Eos # (Auto) 0.1 (0.0-0.7) 10^3/uL Baso # (Auto) 0.0 (0.0-0.1) 10^3/uL Absolute Nucleated RBC 0.00 x10^3/uL Nucleated RBC % 0.0 /100WBC Sodium 135 (135-145) mmol/L Potassium 3.9 (3.5-5.0) mmol/L Chloride 98 L (101-111) mmol/L Carbon Dioxide 27 (21-32) mmol/L Anion Gap 10.0 (6-13) BUN 17 (6-20) mg/dL Creatinine 0.9 (0.4-1.0) mg/dL Estimated GFR (MDRD) 61 L (>89) Glucose 105 H (70-100) mg/dL Calcium 8.7 (8.5-10.3) mg/dL Ionized Calcium NO Total Bilirubin 1.1 H (0.2-1.0) mg/dL AST 31 (10-42) IU/L ALT 19 (10-60) IU/L Alkaline Phosphatase 59 (42-121) IU/L Total Protein 6.5 L (6.7-8.2) g/dL Albumin 4.2 (3.2-5.5) g/dL Globulin 2.3 (2.1-4.2) g/dL Albumin/Globulin Ratio 1.8 (1.0-2.2) - Current Medications Current Medications: Current Medications Generic Name Dose Route Start Last Admin Trade Name Freq PRN Reason Stop Dose Admin Atorvastatin Calcium 10 mg 02/01/21 21:00 02/01/21 21:28 Atorvastatin 10 Mg Tablet PO 10 mg QPM ELIZA Administration Enoxaparin Sodium 40 mg 02/02/21 09:00 02/02/21 15:05 Enoxaparin 40 Mg/0.4 Ml Syringe SUBQ 40 mg DAILY ELIZA Administration Acetaminophen 100 mls @ 400 mls/hr 02/01/21 20:00 02/02/21 15:53 Ofirmev IV Infused Q6H ELIZA Infusion Ketorolac Tromethamine 15 mg 02/01/21 14:00 02/02/21 08:11 Ketorolac 15 Mg/Ml Vial IVP 02/06/21 13:59 15 mg Q6H ELIZA Administration Lactulose 10 gm 02/02/21 09:00 02/02/21 13:51 Lactulose 10 Gm /15 Ml Udc PO Not Given DAILY ELIZA Methocarbamol 500 mg 02/02/21 14:00 02/02/21 17:36 Methocarbamol 500 Mg Tablet PO 500 mg Q6HR ELIZA Administration Ondansetron HCl 4 mg 02/01/21 13:29 02/02/21 08:09 Ondansetron 4 Mg/2 Ml Vial IVP 4 mg Q6H PRN Administration Nausea / Vomiting Pantoprazole Sodium 40 mg 02/02/21 07:00 02/02/21 06:58 Pantoprazole 40 Mg Tablet PO 40 mg QDAC ELIZA Administration Polyethylene Glycol 17 gm 02/02/21 09:00 02/02/21 12:33 Polyethylene Glycol 3350 17 Gm Packet PO Not Given DAILY ELIZA Pregabalin 75 mg 02/01/21 21:00 02/02/21 09:33 Pregabalin 25 Mg Capsule PO 75 mg BID ELIZA Administration Sodium Chloride 10 ml 02/01/21 17:00 02/02/21 17:36 Sodium Chloride Flush 0.9% 10 Ml Syringe IVP 10 ml 0100,0900,1700 ELIZA Administration Sodium Chloride 10 ml 02/01/21 13:29 02/02/21 08:23 Sodium Chloride Flush 0.9% 10 Ml Syringe IVP 10 ml PRN PRN Administration NEEDED PER PROVIDER ORDERS - Physical Exam Wound/Incisions: positive: Healing well, Other (Moderate bruising centrally) General Appearance: positive: No acute distress Eyes Bilateral: positive: Normal inspection ENT: positive: ENT inspection nml, No signs of dehydration Respiratory: positive: No respiratory distress, Breath sounds nml Cardiovascular: positive: Regular rate & rhythm Abdomen: positive: Nml bowel sounds, Tenderness Skin: positive: Color nml Extremities: positive: Non-tender, No pedal edema Neurologic/Psychiatric: positive: Oriented x3 ABX Reporting Has patient been on IV antibiotics over the past 48 hours?: Yes Impression/Plan - Problem List Problem List: 1. Schedule Robaxin to help with pain control. 2. Ambulate in the halls today at least twice. We discussed the problem of limiting ambulation due to pain. If she is not able to walk, we need to add a low dose narcotic. She is taking acetaminophen, toradol, lyrica, and metaxalone currently. 3. Monitor for continued urinary retention. If she is not able to urinate, will start Flomax 4. Start Colace 250 mg each day and hold lactulose for now.
[2021-02-02] MEDS: ATORVASTATIN 10 MG TABLET PO SCH (21:06)
[2021-02-03] MEDS: KETOROLAC 15 MG/ML VIAL IVP SCH ×4 (02:08→19:43)
[2021-02-03] MEDS: ACETAMINOPHEN 1,000 MG/100 ML 100 ML IV SCH ×4 (02:10→21:01)
[2021-02-03] MEDS: SODIUM CHLORIDE FLUSH 0.9% 10 ML SYRINGE IVP SCH ×4 (02:10→23:39)
[2021-02-03] MEDS: PANTOPRAZOLE 40 MG TABLET PO SCH (06:05)
[2021-02-03] MEDS: methocarbamoL 500 MG TABLET PO SCH ×4 (06:06→23:38)
[2021-02-03] MEDS: DOCUSATE SODIUM 250 MG CAPSULE PO SCH (09:08)
[2021-02-03] MEDS: PREGABALIN 25 MG CAPSULE PO SCH ×2 (09:08→19:44)
[2021-02-03] MEDS: ENOXAPARIN 40 MG/0.4 ML SYRINGE SUBQ SCH (09:08)
[2021-02-03] MEDS: polyethylene glycoL 3350 17 GM PACKET PO SCH (09:09)
[2021-02-03] MEDS: LACTULOSE 10 GM /15 ML UDC PO SCH ×2 (09:09→15:34)
[2021-02-03] MEDS ORDERED: LACTATED RINGERS 500 ML IV ONE (11:38)
[2021-02-03] MEDS ORDERED: LACTULOSE 10 GM /15 ML UDC PO ONE ×2 (18:18→20:30)
[2021-02-03] MEDS: ATORVASTATIN 10 MG TABLET PO SCH (19:44)
[2021-02-04] MEDS: KETOROLAC 15 MG/ML VIAL IVP SCH ×3 (01:48→13:57)
[2021-02-04] MEDS: ACETAMINOPHEN 1,000 MG/100 ML 100 ML IV SCH ×2 (01:51→06:07)
[2021-02-04] MEDS: PANTOPRAZOLE 40 MG TABLET PO SCH (06:03)
[2021-02-04] MEDS: methocarbamoL 500 MG TABLET PO SCH ×3 (06:03→16:58)
[2021-02-04] MEDS: ENOXAPARIN 40 MG/0.4 ML SYRINGE SUBQ SCH (08:50)
[2021-02-04] MEDS: SODIUM CHLORIDE FLUSH 0.9% 10 ML SYRINGE IVP SCH ×2 (08:50→16:59)
[2021-02-04] MEDS: PREGABALIN 25 MG CAPSULE PO SCH (08:50)
[2021-02-04] MEDS: LACTULOSE 10 GM /15 ML UDC PO SCH (10:24)
[2021-02-04] MEDS: polyethylene glycoL 3350 17 GM PACKET PO SCH (10:24)
[2021-02-04] MEDS: DOCUSATE SODIUM 250 MG CAPSULE PO SCH (10:24)
[2021-02-04] MEDS ORDERED: ACETAMINOPHEN 1,000 MG/100 ML 100 ML IV SCH (12:00)
[2021-02-04] MEDS: SODIUM CHLORIDE FLUSH 0.9% 10 ML SYRINGE IVP PRN (13:58)
--- NOTE | 2021-02-04 14:08 | Discharge Plan ---
Discharge Plan Problem Reviewed?: Yes Disposition: Home, Self Care Condition: Good Prescriptions: methocarbamoL [Robaxin] 500 mg PO Q6HR #120 tablet Docusate Sodium 250Mg Capsule [Colace 250Mg Capsule] 250 mg PO DAILY #30 tab Lactulose 10 gm PO BID PRN #30 packet PRN Reason: Constipation Pregabalin [Lyrica] 75 mg PO BID #60 tab Pantoprazole [Protonix] 40 mg PO QDAC #30 tablet Diet: Regular Activity Restrictions: 10 pound lifting limit Shower Restrictions: No Driving Restrictions: Yes (Not until after follow up ) Assessment: Recovering well after repair of a large incisional hernia No Smoking: If you smoke, Please STOP! Call for help. Follow-up with: SHANNAN WOLF MD [Primary Care Provider] - Shorty Arroyo MD [Provider Admit Priv/Credential] -
--- NOTE | 2021-02-04 14:12 | DISCHARGE SUMMARY ---
"Discharge Summary Admit Date: 02/04/21 Discharge Date: 02/04/21 Discharging Provider: Cruz Code Status: Attempt Resuscitation Condition at Discharge: Good Discharge Disposition: 01 Home, Self Care - DIAGNOSES Admission Diagnoses: Large incisional hernia Discharge Diagnoses with Status of Each Condition: Improving - HPI History of Present Illness: Jannette is a wonderful 80 year old lady with a large incisional hernia after extensive colon surgery. On the date of admission, she presented for repair. - CONSULTS | PROCEDURES Procedures: Open ventral hernia repair with Ventralux ST mesh. - HOSPITAL COURSE Hospital Course: Jannette had an uneventful repair and was admitted overnight for observation and pain control. She developed urinary retention and required catheter placement. This resolved over the ensuing 24 hours but pain control continued to be a challenge. On post op day 2 she was finally able to walk the halls with a walker but pain control and constipation were both significant concerns. Both issues have improved today to allow discharge to her home in the care of her family. She is afebrile and now steady on her feet when walking. She will follow up with me in my office in 2 weeks. - ALLERGIES Allergies/Adverse Reactions: Allergies Allergy/AdvReac Type Severity Reaction Status Date / Time meloxicam Allergy Intermediate Hives Verified 10/09/20 23:45 Penicillins Allergy Intermediate Hives Verified 10/09/20 23:45 Sulfa (Sulfonamide Allergy Intermediate Hives Verified 10/09/20 23:45 Antibiotics) codeine Allergy Emesis Verified 10/09/20 23:45 latex Allergy Rash Verified 10/09/20 23:45 nut - unspecified Allergy Anaphylaxis Verified 10/09/20 23:45 - MEDICATIONS Home Medications: Ambulatory Orders Medication Instructions Recorded Confirmed Clopidogrel [Plavix] 75 mg PO .QOD 04/06/14 02/02/21 Celecoxib [Celebrex] 200 mg PO BID 06/08/16 02/02/21 Multivitamin [Theragran] 1 each PO DAILY 12/26/17 02/02/21 Atorvastatin Calcium 10 mg PO QPM 05/04/18 02/02/21 propylthiouraciL [Propylthiouracil] 50 mg PO QPM 10/07/20 02/02/21 Ascorbic Acid [Vitamin C] 1,000 mg PO DAILY 01/25/21 02/02/21 Cholecalciferol [Vitamin D3] 50 mcg PO DAILY 01/25/21 02/02/21 Docusate Sodium 250Mg Capsule 250 mg PO DAILY #30 tab 02/04/21 [Colace 250Mg Capsule] Lactulose 10 gm PO BID PRN #30 packet 02/04/21 Pantoprazole [Protonix] 40 mg PO QDAC #30 tablet 02/04/21 Pregabalin [Lyrica] 75 mg PO BID #60 tab 02/04/21 methocarbamoL [Robaxin] 500 mg PO Q6HR #120 tablet 02/04/21 - PHYSICAL EXAM AT DISCHARGE General Appearance: positive: No acute distress, Alert Eyes Bilateral: positive: Normal inspection, PERRL, EOMI ENT: positive: ENT inspection nml, Pharynx nml, No signs of dehydration Neck: positive: Nml inspection, Thyroid nml, No JVD Respiratory: positive: Chest non-tender, No respiratory distress, Breath sounds nml Cardiovascular: positive: Regular rate & rhythm, No murmur Abdomen: positive: Other (Appropriately tender to palpation, active bowel sounds, brusing over the prior hernia sac,) Back: negative: CVA tenderness (R), CVA tenderness (L) Skin: positive: Color nml Extremities: positive: Non-tender - LABS Result Diagrams: 02/02/21 14:35 02/02/21 14:35 - FOLLOW UP Follow Up: [address] Arroyo - TIME SPENT Time Spent in Discharge (Minutes): 20"
--- NOTE | 2021-02-04 16:09 | Discharge Plan ---
Discharge Plan Disposition: Home, Self Care Condition: Good Prescriptions: methocarbamoL [Robaxin] 500 mg PO Q6HR #120 tablet Docusate Sodium 250Mg Capsule [Colace 250Mg Capsule] 250 mg PO DAILY #30 tab Lactulose 10 gm PO BID PRN #30 packet PRN Reason: Constipation Pregabalin [Lyrica] 75 mg PO BID #60 tab Pantoprazole [Protonix] 40 mg PO QDAC #30 tablet Activity Restrictions: 10 pound lifting limit Shower Restrictions: No Driving Restrictions: Yes (Not until after follow up ) Assessment: Recovering well after repair of a large incisional hernia No Smoking: If you smoke, Please STOP! Call for help. Follow-up with: SHANNAN WOLF MD [Primary Care Provider] - Shorty Arroyo MD [Provider Admit Priv/Credential] -
[2021-02-04 16:41] VITALS: BP 106/62
[2021-02-04] MEDS ORDERED: LACTULOSE 10 GM /15 ML UDC PO ONE (18:12)
== END 2021-02-04 17:10 | disposition home or self-care (01) | DRG 395 ==
LOC: SDS 09:26 → MS2 14:48 → SDS 02-02 13:25 → MS2 02-02 13:26 → OBSVTOIN 02-03 11:42
PROVIDERS: ADMIT Surgery; ATTEND Surgery
PROC: 0WUF0JZ Supplement Abdominal Wall with Synthetic Substitute, Open Approach (ICD-10-PCS; 2021-02-01)
PROC: 0WUF0JZ Supplement Abdominal Wall with Synthetic Substitute, Open Approach (ICD-10-PCS; principal; 2021-02-01 10:30)
DX: K43.2 Incisional hernia without obstruction or gangrene (principal); R33.9 Retention of urine, unspecified; G89.18 Other acute postprocedural pain; K59.00 Constipation, unspecified; Z86.718 Personal history of other venous thrombosis and embolism; Z79.01 Long term (current) use of anticoagulants; Z86.73 Personal history of transient ischemic attack (TIA), and cerebral infarction without residual deficits; K21.9 Gastro-esophageal reflux disease without esophagitis; E03.9 Hypothyroidism, unspecified
CPT/HCPCS: 36415; 49560; 49568; 80053; 85025; 96372; A9270; G0378; J0131; J0690; J1650; J2765; J2795; J7120

== ENCOUNTER 2021-02-15 07:00 | Outpatient (CLI) | payer MEDICARE, OTHER ==
--- NOTE | 2021-02-15 14:13 | XRAY Report ---
PROCEDURE: Abdomen 2 View X-Ray INDICATIONS: CONSTIPATION, DRUG INDUCED TECHNIQUE: 1 view of the abdomen were acquired. COMPARISON: CT abdomen/pelvis 10/10/2020 FINDINGS: Surgical changes and devices: Left total hip arthroplasty is again seen axial position. Surgical stap les are seen in the pelvis. Bowel: No pneumoperitoneum. The bowel gas pattern is normal. A small amount of stool is seen throu ghout the colon. Soft tissues: No masses; visualized solid organ contours appear normal in size. No suspicious abdom inal calcifications. Bones: No suspicious bony abnormalities. Multilevel degenerative changes are seen in the included s pine. IMPRESSION: Nonobstructive bowel gas pattern. Small amount of stool throughout the colon. Reviewed by: Nikos Aguilera MD on 02/15/2021 1:12 PM S[facility] Approved by: Nikos Aguilera MD on 02/15/2021 1:12 PM SANG[facility] Station ID: [id number]
== END 2021-02-15 23:59 | disposition home or self-care (01) ==
LOC: DI.N 07:00
PROVIDERS: ATTEND Family Medicine
DX: K59.03 Drug induced constipation (principal); R10.9 Unspecified abdominal pain; R39.15 Urgency of urination
CPT/HCPCS: 36415; 80053; 82150; 83690; 85025; 87086

== ENCOUNTER 2021-02-15 08:00 | Outpatient (CLI) | payer MEDICARE, OTHER ==
[2021-02-15 17:57] LABS: BASOPHILS # (AUTO) 0.1 10^3/uL (0.0-0.1); BASOPHILS % (AUTO) 0.8 %; EOSINOPHILS # (AUTO) 0.2 10^3/uL (0.0-0.7); EOSINOPHILS % (AUTO) 2.9 %; HCT - HEMATOCRIT 40.4 % (37.0-47.0); HGB - HEMOGLOBIN 12.6 g/dL (12.0-16.0); LYMPHOCYTES # (AUTO) 1.7 10^3/uL (1.5-3.5); LYMPHOCYTES % (AUTO) 27.2 %; MEAN CORPUSCULAR HEMOGLOBIN 30.7 pg (27.0-31.0); MEAN CORPUSCULAR HGB CONC 31.2 g/dL (32.0-36.0); MEAN CORPUSCULAR VOLUME 98.3 fL (81.0-99.0); MEAN PLATELET VOLUME 9.1 fL (7.9-10.8); MONOCYTES # (AUTO) 0.4 10^3/uL (0.0-1.0); MONOCYTES % (AUTO) 7.1 %; NEUTROPHILS # (AUTO) 3.8 10^3/uL (1.5-6.6); NEUTROPHILS % (AUTO) 61.5 %; PLT - PLATELET COUNT 348 10^3/uL (130-450); RED BLOOD COUNT 4.11 10^6/uL (4.20-5.40); RED CELL DISTRIBUTION WIDTH 14.6 % (12.0-15.0); WHITE BLOOD COUNT 6.2 x10^3/uL (4.8-10.8)
[2021-02-15 18:10] LABS: ALBUMIN 4.3 g/dL (3.2-5.5); ALBUMIN/GLOBULIN RATIO 1.7 (1.0-2.2); BILIRUBIN,TOTAL 0.7 mg/dL (0.2-1.0); CALCIUM 9.9 mg/dL (8.5-10.3); CREATININE 0.8 mg/dL (0.4-1.0); POTASSIUM 4.6 mmol/L (3.5-5.0); TOTAL PROTEIN 6.9 g/dL (6.7-8.2)
== END 2021-02-15 23:59 | disposition home or self-care (01) ==
LOC: LAB.N 08:00
PROVIDERS: ATTEND Family Medicine
DX: R10.9 Unspecified abdominal pain (principal); R39.15 Urgency of urination
CPT/HCPCS: 36415; 80053; 82150; 83690; 85025; 87086

== ENCOUNTER 2021-03-08 07:53 | Outpatient (CLI) | payer MEDICARE, OTHER ==
[2021-03-08 08:46] LABS: % IRON SATURATION 19 % (20-50); ALBUMIN 4.1 g/dL (3.2-5.5); ALKALINE PHOSPHATASE 64 IU/L (42-121); ALT ALANINE AMINOTRANSFERASE 22 IU/L (10-60); AST ASPARTATE AMINOTRANSFERASE 29 IU/L (10-42); BILIRUBIN,DIRECT 0.1 mg/dL (0.1-0.5); BILIRUBIN,TOTAL 0.7 mg/dL (0.2-1.0); BUN - BLOOD UREA NITROGEN 29 mg/dL (6-20); CALCIUM 9.3 mg/dL (8.5-10.3); CARBON DIOXIDE - CO2 28 mmol/L (21-32); CHLORIDE 102 mmol/L (101-111); CHOL/HDL RATIO 2.4 (<4.4); CHOLESTEROL 156 mg/dL; CREATININE 0.8 mg/dL (0.4-1.0); GFR - MDRD 69 (>89); GLUCOSE 94 mg/dL (70-100); HDL CHOLESTEROL 65 mg/dL; IRON 46 ug/dL (28-170); LDL CHOLESTEROL,CALCULATED 77 mg/dL; LDL/HDL RATIO 1.2 (<4.4); POTASSIUM 4.3 mmol/L (3.5-5.0); SODIUM 137 mmol/L (135-145); TOTAL IRON BINDING CAPACITY 237 ug/dL (250-450); TOTAL PROTEIN 6.3 g/dL (6.7-8.2); TRANSFERRIN 169 mg/dL (192-382); TRIGLYCERIDES 71 mg/dL; VLDL CHOLESTEROL 14 mg/dL
[2021-03-08 08:58] LABS: THYROID STIMULATING HORMONE 0.45 uIU/mL (0.34-5.60)
[2021-03-08 09:00] LABS: FREE T4 (FREE THYROXINE) 0.75 ng/dL (0.58-1.64)
[2021-03-08 11:54] LABS: ESTIMATED AVERAGE GLUCOSE 97 mg/dL (70-100)
== END 2021-03-08 07:54 | disposition home or self-care (01) ==
LOC: LAB 07:53
PROVIDERS: ATTEND Internal Medicine
DX: Z00.00 Encounter for general adult medical examination without abnormal findings (principal); D50.8 Other iron deficiency anemias; E06.9 Thyroiditis, unspecified
CPT/HCPCS: 36415; 80048; 80061; 80076; 83036; 83540; 83721; 84439; 84443; 84466

== ENCOUNTER 2021-06-17 16:16 | Outpatient (CLI) | payer MEDICARE, OTHER ==
--- NOTE | 2021-06-18 15:13 | Ultrasound Report ---
PROCEDURE: Head or Neck Soft Tissue INDICATIONS: MULTIPLE THYROID NODULES TECHNIQUE: Real time scanning was performed of the neck region of interest, with image documentation . COMPARISON: Prior thyroid ultrasound dated 03/13/2019 and 09/28/2019. FINDINGS: No soft tissue neck abnormality seen bilaterally IMPRESSION: PROCEDURE: Head or Neck Soft Tissue INDICATIONS: MULTIPLE THYROID NODULES TECHNIQUE: Real-time scanning was performed of the thyroid gland, with image documentation. COMPARISON: None. FINDINGS: Right: PROCEDURE: Head or Neck Soft Tissue INDICATIONS: MULTIPLE THYROID NODULES TECHNIQUE: Real-time scanning was performed of the thyroid gland, with image documentation. COMPARISON: None FINDINGS: Right: Thyroid lobe measures 3.8 x 1.2 x 1.3 cm, and is diffusely heterogeneous in echotexture. Left: Thyroid lobe measures 3.7 x 2.6 x 2.8 cm, and is diffusely heterogeneous in echotexture. Isthmus: 3.0 mm thick. Nodule number: One Location: Right inferior Size: Stable 1.3 x 1.2 x 1.2 cm. Composition: Predominately solid Echogenicity: Hypoechoic Shape: wider than tall. Margins: Smooth Echogenic foci: None Total points: 4 ACR TI-RADS category: Moderately suspicious Nodule number: Two Location: Left isthmus Size: Stable at 0.7 x 0.3 x 0.6 cm. Composition: Solid Echogenicity: Hypoechoic Shape: wider than tall. Margins: Smooth Echogenic foci: None Total points: 4 ACR TI-RADS category: Moderately suspicious Nodule number: Three Location: Left mid inferior Size: Stable 3.2 x 2.3 x 2.5 cm. Composition: Predominately solid Echogenicity: Hyperechoic Shape: wider than tall. Margins: Smooth Echogenic foci: None Total points: 3 ACR TI-RADS category: Mildly suspicious IMPRESSION: Stable appearance of bilateral thyroid nodules. Recommend continued sonographic surveill ance as detailed below. ACR TI-RADS definitions and recommendations: TI-RADS 1 (benign): 0 points. FNA not needed. TI-RADS 2 (not suspicious): 2 points. FNA not needed. TI-RADS 3 (mildly suspicious): 3 points. ? FNA if 2.5 cm or larger, follow up if 1.5 cm or larger (at 1, 3, and 5 years). TI-RADS 4 (moderately suspicious): 4-6 points. ? FNA if 1.5 cm or larger, follow up if 1 cm or larger (at 1, 2, 3, and 5 years). TI-RADS 5 (highly suspicious): 7 points or more. ? FNA if 1 cm or larger, follow up if 0.5 cm or larger (every year for 5 years). Reviewed by: PHILIPPE Ricardo on 06/18/2021 3:12 PM PDT Approved by: Rico Peña on 06/18/2021 3:12 PM PDT Station ID: [id number]
== END 2021-06-17 16:17 | disposition home or self-care (01) ==
LOC: DI 16:16
PROVIDERS: ATTEND Student in an Organized Health Care Education/Training Program
DX: E04.2 Nontoxic multinodular goiter (principal)

== ENCOUNTER 2021-10-01 10:20 | Emergency (ER) | payer MEDICARE, OTHER ==
[2021-10-01] MEDS ORDERED: BUFFERED LIDOCAINE 10 ML SYRINGE SUBQ STA (10:38)
--- NOTE | 2021-10-01 11:40 | ED Physician Documentation ---
PD HPI UPPER EXT INJURY - Stated complaint Stated Complaint: LT HAND DOG BITE - Chief complaint Chief Complaint: Laceration - History obtained from History obtained from: Patient - History of Present Illness Location: Left, Hand Type of injury: Other (dog bite) Where injury occurred: Home Timing - onset: Today Timing - duration: Minutes Timing - details: Abrupt onset, Still present Improved by: Rest, Immobilization Worsened by: Moving, Palpating Associated symptoms: No: Weakness, Numbness, Tingling, Swelling Contributing factors: Anticoagulated Similar symptoms before: Has not had sx before Recently seen: Not recently seen - Additonal information Additional information: 81-year-old female with 5 dogs was petting one of her dogs on the abdomen when the dog was startled and nipped at her hand. The skin on the back of her hand has been torn. The patient denies any puncture wound associated with this she denies any numbness or tingling distally. She has not been ill recently. She is on a blood thinner for a prior TIA. 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 HEENT: Chronic vision loss Psych: Depression Musculoskeletal: Osteoarthritis Derm: Rosacea, Other - Past Surgical History Past Surgical History: Yes General: Bowel surgery, Colonoscopy, Other Ortho: Hip replacement, 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 HEENT: Tonsil/Adenoidectomy Derm: Skin cancer surgery - Present Medications Home Medications: Ambulatory Orders Medication Instructions Recorded Confirmed Clopidogrel [Plavix] 75 mg PO .QOD 04/06/14 02/02/21 Celecoxib [Celebrex] 200 mg PO BID 06/08/16 02/02/21 Multivitamin [Theragran] 1 each PO DAILY 12/26/17 02/02/21 Atorvastatin Calcium 10 mg PO QPM 05/04/18 02/02/21 propylthiouraciL [Propylthiouracil] 50 mg PO QPM 10/07/20 02/02/21 Ascorbic Acid [Vitamin C] 1,000 mg PO DAILY 01/25/21 02/02/21 Cholecalciferol [Vitamin D3] 50 mcg PO DAILY 01/25/21 02/02/21 Docusate Sodium 250Mg Capsule 250 mg PO DAILY #30 tab 02/04/21 [Colace 250Mg Capsule] Lactulose 10 gm PO BID PRN #30 packet 02/04/21 Pantoprazole [Protonix] 40 mg PO QDAC #30 tablet 02/04/21 Pregabalin [Lyrica] 75 mg PO BID #60 tab 02/04/21 methocarbamoL [Robaxin] 500 mg PO Q6HR #120 tablet 02/04/21 cephALEXin [Keflex] 500 mg PO TID #15 cap 10/01/21 - Allergies Allergies/Adverse Reactions: Allergies Allergy/AdvReac Type Severity Reaction Status Date / Time meloxicam Allergy Intermediate Hives Verified 10/01/21 10:30 Penicillins Allergy Intermediate Hives Verified 10/01/21 10:30 Sulfa (Sulfonamide Allergy Intermediate Hives Verified 10/01/21 10:30 Antibiotics) codeine Allergy Emesis Verified 10/01/21 10:30 latex Allergy Rash Verified 10/01/21 10:30 nut - unspecified Allergy Anaphylaxis Verified 10/01/21 10:30 - Social History Does the pt smoke?: No Smoking Status: Never smoker Does the pt drink ETOH?: Yes Does the pt have substance abuse?: No - Immunizations Immunizations are current?: Yes Immunizations: TDAP current <10years - POLST Patient has POLST: No POLST Status: Full Code PD ED PE NORMAL - Vitals Vital signs reviewed: Yes (normal ) - General General: Alert and oriented X 3, No acute distress, Well developed/nourished - HEENT HEENT: Atraumatic, PERRL, EOMI - Respiratory Respiratory: No respiratory distress - Derm Derm: Normal color, Warm and dry, No rash - Extremities Extremities: Other (There are Heberden's nodules as the deformity of osteoarthritis present. The dorsum of the left hand has 2 lacerations 1 is a 3 cm linear laceration that does not penetrate the fascia. There is a second flap laceration that is superficial but a full flap and this also does not penetrate the fascia) - Neuro Neuro: Alert and oriented X 3, oil spot washer 2-12 intact, No motor deficit, No sensory deficit, Normal speech Eye Opening: Spontaneous Motor: Obeys Commands Verbal: Oriented GCS Score: 15 - Psych Psych: Normal mood, Normal affect Results - Vitals Vitals: Vital Signs - 24 hr 10/01/21 10/01/21 10:30 12:08 Temperature 36.5 C 36.5 C Heart Rate 67 66 Respiratory 16 16 Rate Blood Pressure 116/66 114/62 O2 Saturation 97 98 Oxygen O2 Source Room air Procedures - Laceration (location) left hand Length in cm: 2 Wound type: Linear Neurovascular status: Sensory intact, Motor intact, Vascular intact Anesthesia: Lidocaine 1%, With bicarb Wound preparation: Hibiclens, Irrigated copiously NS, Wound explored, To the base Skin layer closure: Nylon, Interrupted, Size #-0 - enter number (4-0) Other: Patient tolerated well, No complications, Neurovascular intact, Dressing applied, Tetanus booster given left hand Length in cm: 3.5 Wound type: Curved, Flap, Clean Neurovascular status: Sensory intact, Motor intact, Vascular intact Anesthesia: Lidocaine 1%, With bicarb Wound preparation: Hibiclens, Irrigated copiously NS, Wound explored, To the base Skin layer closure: Nylon, Steri strips (with tincture of benzoin), Interrupted, Size #-0 - enter number (4-0) Other: Patient tolerated well, No complications, Neurovascular intact, Dressing applied PD MEDICAL DECISION MAKING - ED course Complexity details: reviewed results, re-evaluated patient, considered differential, d/w patient ED course: 81-year-old female with a laceration to the dorsum of the hand is on a blood thinner her wounds are sutured and taped for control of hemorrhage. She is placed onto Keflex. Departure - Departure Disposition: 01 Home, Self Care Clinical Impression: Dog bite of hand Qualifiers: Encounter type: initial encounter Laterality: left Qualified Code(s): S61.452A - Open bite of left hand, initial encounter Condition: Stable Instructions: ED Bite Dog, ED Laceration Hand Follow-Up: SHANNAN WOLF MD [Primary Care Provider] - Prescriptions: cephALEXin [Keflex] 500 mg PO TID #15 cap Discharge Date/Time: 10/01/21 12:12
[2021-10-01 12:08] VITALS: BP 114/62
== END 2021-10-01 12:12 | disposition home or self-care (01) ==
LOC: ED 10:20
DX: S61.452A Open bite of left hand, initial encounter (principal); W54.0XXA Bitten by dog, initial encounter; Y93.89 Activity, other specified; Y92.009 Unspecified place in unspecified non-institutional (private) residence as the place of occurrence of the external cause; M15.1 Heberden's nodes (with arthropathy); Z86.73 Personal history of transient ischemic attack (TIA), and cerebral infarction without residual deficits; Z79.02 Long term (current) use of antithrombotics/antiplatelets
CPT/HCPCS: 12002; 99282

== ENCOUNTER 2022-10-17 11:25 | Outpatient (CLI) | payer MEDICARE, OTHER ==
[2022-10-17 12:18] LABS: THYROID STIMULATING HORMONE 3.39 uIU/mL (0.34-5.60)
[2022-10-17 12:21] LABS: FREE T4 (FREE THYROXINE) 0.66 ng/dL (0.58-1.64)
== END 2022-10-17 11:26 | disposition home or self-care (01) ==
LOC: LAB 11:25
PROVIDERS: ATTEND Student in an Organized Health Care Education/Training Program
DX: E05.90 Thyrotoxicosis, unspecified without thyrotoxic crisis or storm (principal)
CPT/HCPCS: 36415; 84439; 84443

== ENCOUNTER 2023-02-22 13:15 | Outpatient (CLI) | payer MEDICARE, OTHER ==
[2023-02-22 14:00] LABS: THYROID STIMULATING HORMONE 4.13 uIU/mL (0.34-5.60)
[2023-02-22 14:04] LABS: FREE T4 (FREE THYROXINE) 0.86 ng/dL (0.58-1.64)
== END 2023-02-22 13:16 | disposition home or self-care (01) ==
LOC: LAB 13:15
PROVIDERS: ATTEND Student in an Organized Health Care Education/Training Program
DX: E05.90 Thyrotoxicosis, unspecified without thyrotoxic crisis or storm (principal)
CPT/HCPCS: 36415; 84439; 84443

== ENCOUNTER 2023-05-19 14:28 | Outpatient (CLI) | payer MEDICARE, OTHER ==
[2023-05-19 14:55] LABS: ALBUMIN/GLOBULIN RATIO 1.5 (1.0-2.2); BILIRUBIN,TOTAL 0.8 mg/dL (0.2-1.0); CALCIUM 9.2 mg/dL (8.5-10.3); CREATININE 0.8 mg/dL (0.4-1.0); POTASSIUM 4.4 mmol/L (3.5-5.0); TOTAL PROTEIN 6.6 g/dL (6.7-8.2)
[2023-05-19 15:12] LABS: THYROID STIMULATING HORMONE 3.1 uIU/mL (0.34-5.60)
[2023-05-19 17:37] LABS: ESTIMATED AVERAGE GLUCOSE 108 mg/dL (70-100); HEMOGLOBIN A1c% 5.4 % (4.27-6.07)
== END 2023-05-19 14:29 | disposition home or self-care (01) ==
LOC: LAB 14:28
PROVIDERS: ATTEND Internal Medicine
DX: D64.9 Anemia, unspecified (principal); I95.89 Other hypotension; R10.9 Unspecified abdominal pain; R20.0 Anesthesia of skin; R20.2 Paresthesia of skin; E03.9 Hypothyroidism, unspecified
CPT/HCPCS: 36415; 80053; 83036; 84443

== ENCOUNTER 2024-07-22 11:06 | Outpatient (CLI) | payer MEDICARE, OTHER ==
--- NOTE | 2024-07-22 16:45 | Ultrasound Report ---
PROCEDURE: Soft Tissue Head or Neck INDICATIONS: THYROID NODULE TECHNIQUE: Real-time scanning was performed of the thyroid gland, with image documentation. COMPARISON: 09/08/2022 FINDINGS: Right: Thyroid lobe measures 3.0 x 1.5 x 1.2 cm. Left: Thyroid lobe measures 4.7 x 2.9 x 3.2 cm Isthmus: 0.4 cm thick. Echotexture: Homogeneous. Nodule number: One Location: Right inferior Size: 1.6 cm, previously 1.9 cm. Composition: Predominant solid. Echogenicity: Hypoechoic. Shape: wider than tall (0 points). Margins: Smooth (0 points). Echogenic foci: None (0 points). Total points: 4 ACR TI-RADS category: TI-RADS 4: Moderately suspicious. Nodule number: Two Location: Left Size: Stable at 4 cm. Composition: Predominantly solid. Echogenicity: Hyperechoic (1 point). Shape: wider than tall (0 points). Margins: Smooth (0 points). Echogenic foci: None (0 points). Total points: 3 ACR TI-RADS category: TI-RADS 3: Mildly suspicious. Additional isthmus nodule measuring less than 5 mm. IMPRESSION: Thyroid nodules as above are stable compared to prior. Left thyroid nodule qualifies for fine-needle aspiration if not previously performed. ACR TI-RADS definitions and recommendations: TI-RADS 1 (benign): 0 points. FNA not needed. TI-RADS 2 (not suspicious): 2 points. FNA not needed. TI-RADS 3 (mildly suspicious): 3 points. "FNA if 2.5 cm or larger, follow up if 1.5 cm or larger (at 1, 3, and 5 years). TI-RADS 4 (moderately suspicious): 4-6 points. "FNA if 1.5 cm or larger, follow up if 1 cm or larger (at 1, 2, 3, and 5 years). TI-RADS 5 (highly suspicious): 7 points or more. "FNA if 1 cm or larger, follow up if 0.5 cm or larger (every year for 5 years). Reviewed by: Calixto Graham MD on 07/22/2024 4:44 PM PDT Approved by: Calixto Graham MD on 07/22/2024 4:44 PM PDT Station ID: [id number]
== END 2024-07-22 11:07 | disposition home or self-care (01) ==
LOC: DI 11:06
PROVIDERS: ATTEND Internal Medicine
DX: E04.2 Nontoxic multinodular goiter (principal)